=== PATIENT | female | born 1985 | race Caucasian/White ===

== ENCOUNTER 2020-09-26 05:21 | Emergency (ER) | payer OTHER, SELFPAY ==
--- NOTE | ~2020-09-26 | CT_ITS ---
EXAMINATION: CT abdomen pelvis w con CLINICAL INFORMATION: Reason for Exam Abdominal pain COMPARISON: No prior CT available for comparison. TECHNIQUE: Multidetector volumetric imaging was performed from the superior aspect of the liver through the pubic symphysis 85 mL Omnipaque 350 injected Sagittal and coronal reformatted images were obtained on the technologist's workstation. This CT examination was performed using dose optimization techniques as appropriate, variously including the following: *Automated exposure control *Adjustment of mA and/or kV according to patient size (this includes techniques or standardized protocols for targeted exams where dose is matched to indication/reason for exam; i.e. extremities or head) *Use of iterative reconstruction technique DLP: 1273 mGy-cm FINDINGS: LOWER THORAX: Included lung bases are clear. HEPATOBILIARY: Tiny hypodensity in the left lobe of the liver 3 mm too small to characterize, liver otherwise homogeneous normal in size and texture. No suspicious liver lesion. No CT evidence of intra-axial or extrahepatic biliary dilatation. GALLBLADDER: Gallbladder unremarkable. SPLEEN: Spleen is normal in size. PANCREAS: No focal mass or ductal dilatation. STOMACH AND GASTROINTESTINAL TRACT: Stomach is grossly unremarkable. There is no bowel distention or thickening. No CT evidence of appendicitis. ADRENALS: No adrenal nodules. KIDNEYS/URETERS: There is a tiny nonobstructing stone upper calyx right kidney measure about 2 mm image 112 series 6. No hydronephrosis, or solid mass lesions. URINARY BLADDER: Partially decompressed. PELVIC VISCERA: Unremarkable PERITONEUM: No free air or fluid. LYMPH NODES: No lymphadenopathy. VASCULAR:Abdominal aorta normal in size, no aneurysm found. BONES, ABDOMINAL WALL AND SOFT TISSUES: Age-appropriate changes of the spine and skeletal system, no destructive osteolytic or osteosclerotic bone lesion found CT/CT abdomen pelvis w con IMPRESSION: No CT evidence of acute intra-abdominal process to explain patient's pain symptoms. Normal appendix. Tiny 2 mm nonobstructing stone upper pole right kidney.
[2020-09-26 05:31] VITALS: BP 136/82; BP 146/88; PULSE 59; PULSE 65; RESP 16; TEMP 36.9; O2SAT 98; O2SAT 99; BMI 48.2
--- NOTE | 2020-09-26 05:52 | ED.NAVMDI ---
HPI - Nausea/Vomiting/Diarrhea General Chief complaint: Nausea/Vomiting/Diarrhea Stated complaint: nausea and vomiting Time Seen by Provider: 09/26/20 05:27 Source: patient Mode of arrival: ambulatory History of Present Illness HPI Narrative: This is a 35-year-old female who presents with onset of nausea and nonbloody/non bilious vomiting since evening that she denies being associated with contaminated food, fevers, but states there have been chills and this is been associated with left flank and periumbilical discomfort. Otherwise, she denies any urinary pain/burning/frequency, shortness of breath/chest pain and otherwise endorses that she is on the Suboxone program. Related Data Allergies Allergy/AdvReac Type Severity Reaction Status Date / Time No Known Allergies Allergy Verified 09/26/20 05:37 [No Known Allergies*] Review of Systems Review of Systems: Pertinent positives and negatives as stated in HPI 10 point review systems is otherwise negative. PMFSH Past Medical History Source: nursing notes reviewed Social History Social History Advance Directives: No Physical Exam Vital Signs: Vital Signs: Last Vital Signs Temp 98.5 F 09/26/20 05:31 Pulse 59 09/26/20 05:31 Resp 16 09/26/20 05:31 BP 146/88 H 09/26/20 05:31 Pulse Ox 99 09/26/20 05:31 Body Mass Index 48.2 VITAL SIGNS: Reviewed. GENERAL: Well developed, well nourished, in no acute distress. HEAD: Normocephalic/atraumatic, EYES: PERRLA, EOMI intact without pain, no nystagmus/pallor/icterus noted EARS: Ext canals without abnormality, TMs non-bulging and non-erythematous NOSE: Nares patent bilateral OROPHARYNX: no oral lesions noted, posterior pharynx clear NECK: Supple, no adenopathy LUNGS: Normal breath sounds. No adventitious sounds or accessory muscle use. SpO2<99> CARDIOVASCULAR: Regular rate and rhythm without noted murmurs ABDOMEN: Soft, tenderness over epigastrium upper quadrant, non-distended with bowel sounds. NEUROLOGIC: Alert and oriented x 4. Course Course Course Narrative: This is a 35-year-old female with history and clinical presentation suggestive possible renal colic, gastritis, less likely cholecystitis possible pancreatitis. Signed out to Dr Park.
[2020-09-26 06:51] LABS: Basophils Percent Auto 0.3 % (0-2); Eosinophils Percent Auto 0.1 % (0-4); Hematocrit 39.5 % (37-47); Hemoglobin 14.1 g/dl (12.0-16.0); Imm Gran Abs Auto 0.04 X10*3/uL (0.00-0.03); Imm Gran Pct Auto 0.5 % (0.0-0.4); Lymphocytes Absolute Auto 1.5 X10*3/uL (1.2-4.9); Lymphocytes Percent Auto 19.2 % (20-40); Mean Corpuscular HGB Conc 35.7 g/dl (31.0-35.0); Mean Corpuscular Hemoglobin 29.6 pg (27.0-33.0); Mean Platelet Volume 9.8 fL (9.4-12.3); Monocytes Absolute Auto 0.1 X10*3/uL (0.1-1.2); Monocytes Percent Auto 1.3 % (2-11); Neutrophils Absolute Auto 6.3 X10*3/uL (2.0-8.3); Neutrophils Percent Auto 78.6 % (45-73); Platelet Count 282 X10*3/uL (160-400); Red Blood Count 4.76 X10*6/uL (4.20-5.50); Red Cell Distribution Width 11.8 % (11.0-16.0)
[2020-09-26] MEDS: ondansetron HCL 4 MG/2 ML VIAL IVPUSH ×2 (06:52→08:16)
[2020-09-26] MEDS: 0.9 % Sodium Chloride 1,000 ML 999 ML IV (06:53)
[2020-09-26 06:54] LABS: Glucose Urine UA NEG (NEG); Leukocyte Esterase Urine NEG (NEG); Nitrite Urine NEG (NEG); Urine Blood NEG (NEG); Urine Ketones NEG (NEG); Urine Protein NEG (NEG-TRACE)
[2020-09-26] MEDS: Ketorolac Tromethamine 15 MG/ML VIAL IVPUSH (06:54)
[2020-09-26 07:02] LABS: Appearance Urine CLEAR; Color Urine YELLOW; UPreg QC Valid YES
[2020-09-26 07:03] LABS: Urine Pregnancy NEGATIVE (NEGATIVE)
[2020-09-26 07:31] LABS: Amphetamine Screen Urine Not Detected (Not Detect); Barbiturates, Urine POSITIVE (Not Detect); Benzodiazepines Screen Urine Not Detected (Not Detect); Cannabinoid Screen Urine Not Detected (Not Detect); Cocaine Screen Urine Not Detected (Not Detect); Opiate Screen Urine POSITIVE (Not Detect); Phencyclidine Screen Urine Not Detected (Not Detect)
[2020-09-26 08:00] LABS: Alanine Aminotransferase 31 U/L (0-31); Albumin Level 4.3 g/dL (3.5-5.0); Alkaline Phosphatase 72 U/L (39-117); Anion Gap 16 (12-20); Aspartate Amino Transferase 29 U/L (5-31); Bilirubin Total 0.7 mg/dL (0.0-1.0); Blood Urea Nitrogen 17 mg/dL (9-16); Calcium 9.2 mg/dL (8.4-10.2); Carbon Dioxide 23 mmol/L (22-29); Chloride 101 mmol/L (96-108); Creatinine Clr Calc Pharmacy 115.1; Estimated Glomerular Filt Rate > 60; Glucose Random 136 mg/dL (60-115); Potassium 3.7 mmol/L (3.3-5.1); Sodium 136 mmol/L (135-145)
[2020-09-26] MEDS: iohexoL 350 MG/ML 100 ML INFUS..BTL IV (08:18)
[2020-09-26 08:20] VITALS: BP 143/75; PULSE 68; RESP 18; TEMP 36.6; O2SAT 98
[2020-09-26 09:16] LABS: MANUAL DIFF FLAG NO
== END 2020-09-26 10:12 | disposition home or self-care (01) ==
PROVIDERS: Student in an Organized Health Care Education/Training Program; Emergency Provider Emergency Medicine Emergency Medical Services
DX: R11.2 Nausea with vomiting, unspecified (principal); R10.13 Epigastric pain; N20.0 Calculus of kidney; Z79.891 Long term (current) use of opiate analgesic
CPT/HCPCS: 36415; 74177; 80053; 80307; 81003; 81025; 85025; 96361; 96374; 96375; 96376; 99284; J1885; J2405; Q9967

== ENCOUNTER → 2021-01-12 07:27 | Outpatient (BNVA) | payer OTHER, SELFPAY | PROVIDERS: Visit Provider Surgery | DX: E66.01 Morbid (severe) obesity due to excess calories (principal); E78.5 Hyperlipidemia, unspecified; K21.9 Gastro-esophageal reflux disease without esophagitis | CPT/HCPCS: Q3014 ==

== ENCOUNTER → 2021-01-14 12:47 | Outpatient (BNVA) | payer OTHER, SELFPAY | PROVIDERS: Visit Provider Physician Assistant ==

== ENCOUNTER 2021-02-05 09:08 | Outpatient (REF) | payer OTHER, SELFPAY ==
--- NOTE | ~2021-02-05 | XR_ITS ---
EXAMINATION: XR CHEST CLINICAL INFORMATION: Obesity COMPARISON: None TECHNIQUE: 2 views of the chest were obtained. FINDINGS: The cardiac and mediastinal contours are normal. The lungs are clear. There is no pleural effusion or pneumothorax. There are degenerative changes of the spine. XR/XR chest 2V IMPRESSION: No evidence for acute disease in the chest.
--- NOTE | ~2021-02-05 | FL_ITS ---
EXAMINATION: FL UPPER GI SERIES CLINICAL INFORMATION: Bariatric service evaluation. E66.01 COMPARISON: CT abdomen and pelvis 09/26/2020 TECHNIQUE: Upper GI series is performed using fluoroscopic evaluation in addition to multiple fluoroscopic spot views. The patient is imaged both upright and prone and using both thick and thin barium sulfate along with effervescent granules. Fluoroscopy time: 1.5 minutes DAP: 21.46 Gycm2 Fluoroscopic spot images: 19 FINDINGS: There is normal esophageal motility. There is no obstruction, stricture, or ulceration. There is some minor normal physiologic herniation at the esophagogastric junction during prone Valsalva maneuver but no hernia is demonstrated. No gastroesophageal reflux is demonstrated. The stomach shows no thickened folds or ulcer crater or outlet obstruction. The duodenal bulb is pliable and without ulcer crater or scarring. The post bulbar duodenum the jejunal mucosal pattern are unremarkable. FL/FL upper GI series IMPRESSION: Normal study.
--- NOTE | 2021-02-05 09:59 | ECG_ITS ---
Test Reason : E66.01 Blood Pressure : / mmHG Vent. Rate : 071 BPM Atrial Rate : 071 BPM P-R Int : 128 ms QRS Dur : 098 ms QT Int : 426 ms P-R-T Axes : 043 076 077 degrees QTc Int : 462 ms Normal sinus rhythm Nonspecific ST and T wave abnormality When compared to the previous EKG of 08 sep 2016, non specific ST-T changes seen Referred By: Kermit Benson Electronically Signed By:MATT ESTEBAN
== END 2021-02-05 09:09 | disposition home or self-care (01) ==
LOC: HO.XRAY 09:08
PROVIDERS: Visit Provider Surgery
DX: Z01.818 Encounter for other preprocedural examination (principal); E66.01 Morbid (severe) obesity due to excess calories; K21.9 Gastro-esophageal reflux disease without esophagitis; E78.5 Hyperlipidemia, unspecified
CPT/HCPCS: 71046; 74240; 93005

== ENCOUNTER 2021-02-10 14:02 | Outpatient (REF) | payer OTHER, SELFPAY ==
[2021-02-11 14:31] LABS: H Pylori Breath Test NOT DETECTED (NOT DETECTED)
== END 2021-02-10 14:03 | disposition home or self-care (01) ==
LOC: HO.LNP 14:02
PROVIDERS: Surgery; Visit Provider Physician Assistant
DX: E66.01 Morbid (severe) obesity due to excess calories (principal); E78.5 Hyperlipidemia, unspecified; K21.9 Gastro-esophageal reflux disease without esophagitis
CPT/HCPCS: 83013; 99211

== ENCOUNTER → 2021-02-18 08:09 | Outpatient (BNVA) | payer OTHER, SELFPAY | PROVIDERS: Visit Provider Dietitian, Registered | DX: E66.01 Morbid (severe) obesity due to excess calories (principal); Z68.42 Body mass index [BMI] 45.0-49.9, adult | CPT/HCPCS: 97802 ==

== ENCOUNTER → 2021-02-19 07:29 | Outpatient (BNVA) | payer OTHER, SELFPAY | PROVIDERS: Visit Provider Surgery | DX: Z13.89 Encounter for screening for other disorder (principal) | CPT/HCPCS: Q3014 ==

== ENCOUNTER 2021-03-17 11:24 | Outpatient (REF) | payer OTHER, SELFPAY | END 2021-03-17 11:25 | disposition home or self-care (01) | LOC: HO.LAB 11:24 | PROVIDERS: Visit Provider Internal Medicine | DX: Z20.822 Contact with and (suspected) exposure to COVID-19 (principal) | CPT/HCPCS: C9803; U0003; U0005 ==

== ENCOUNTER 2021-05-02 13:38 | Emergency (ER) | payer OTHER, SELFPAY ==
[2021-05-02 14:35] VITALS: BP 121/93; PULSE 89; RESP 18; TEMP 36.6; O2SAT 97; BMI 45.3
[2021-05-02 16:11] LABS: COVID-19 Test Negative (Negative)
--- NOTE | 2021-05-02 16:11 | ED.URI ---
HPI - URI/Sore Throat General Chief Complaint: Upper Respiratory Symptoms Stated Complaint: COUGH BODY ACHES Time Seen by Provider: 05/02/21 16:11 Source: patient Mode of arrival: ambulatory Limitations: no limitations History of Present Illness HPI Narrative: 36 y/o female with history of anxiety, depression, obesity, GERD who is presenting to the ER today complaining of 4 days of nasal congestion & sinus pain. She reports the congestion has now settled into her chest and she has a congested cough. She she is blowing green mucus out of her nose and coughing up from her lungs as of yesterday. is also having headaches and some body aches as well as a mild sore throat. She has some postnasal drip and the cough is worse at night. She is concerned because last night she started to lose her sense of taste and smell. She is not vaccinated against COVID-19. She lives home with her 2 young children and does not want to spread any illnesses to them. She has been afebrile this entire time. She is not having any shortness of breath or chest pain. MD elicited complaint: cough, sore throat, nasal congestion and sinus pain Onset (ago): day(s) (4) Consistency: constant Severity: moderate Description of mucous: green Able to tolerate fluids by mouth: Yes Exacerbating factors: nothing Relieving factors: OTC cold medicine Associated symptoms: headache, nasal congestion, sore throat and cough Treatments prior to arrival: none Related Data Home Medications Medication Instructions Recorded Confirmed doxepin 100 mg capsule 100 mg PO BEDTIME 01/12/21 01/12/21 fluoxetine 20 mg capsule (Prozac) 20 mg PO DAILY 01/12/21 01/12/21 gabapentin 100 mg capsule 100 mg PO TID 01/12/21 01/12/21 omeprazole 40 mg capsule,delayed 40 mg PO DAILY 01/12/21 01/12/21 release trazodone 100 mg tablet 100 mg PO BEDTIME PRN 01/12/21 01/12/21 fluoxetine 60 mg tablet 30 mg PO DAILY 01/14/21 melatonin 10 mg capsule 10 mg PO BEDTIME PRN 01/14/21 omeprazole 20 mg capsule,delayed 20 mg PO DAILY 01/14/21 release Previous Rx's Medication Instructions Recorded ondansetron HCl 4 mg tablet 4 mg PO Q8H PRN #14 tab 09/30/20 (Zofran) amoxicillin 875 mg-potassium 1 tab PO BID #20 tab 05/02/21 clavulanate 125 mg tablet (Augmentin) fluticasone propionate 50 1 spray INTRANASAL BID #16 g 05/02/21 mcg/actuation nasal spray,suspension (Flonase Allergy Relief) hydrocodone-homatropine 5 mg-1.5 5 ml PO Q6H PRN #60 ml 05/02/21 mg/5 mL (5 mL) oral syrup (Hycodan) Allergies Allergy/AdvReac Type Severity Reaction Status Date / Time No Known Allergies Allergy Verified 05/02/21 14:35 [No Known Allergies*] Review of Systems Review of Systems: Constitutional: No Fever, No Chills ENT/Mouth: + sore throat, + Rhinorrhea, No Swallowing Difficulty Eyes: No Eye Pain, No Swelling, No Redness Cardiovascular: No Chest Pain, No SOB Respiratory: + Cough, + Sputum, No Wheezing, No dyspnea Gastrointestinal: No Nausea, No Vomiting, No Diarrhea, No abdominal Pain Musculoskeletal: No joint pain, No Myalgias Skin: No Skin Lesions, No rash Neuro: No Weakness, No Numbness, No Dizziness, + Headache PMFSH Past Medical History Medical History (Updated 05/02/21 @ 17:10 by SANDEE Orta) Anxiety Back pain Back problem Depression GERD (gastroesophageal reflux disease) High cholesterol Hyperlipidemia Knee pain, bilateral Morbid obesity Nausea Family History Family History Mother Lung collapse Father Diabetes Heart attack Depression PTSD (post-traumatic stress disorder) Sister No problems noted. Sister No problems noted. Son No problems noted. Son No problems noted. Social History Social History (Updated 01/12/21 @ 12:52 by Genet Calix) Alcohol intake: never Cigarettes Per Day: 2 Advance Directives: No Advance Directives Information Provided: Yes Physical Exam Vital Signs: Vital Signs: Last Vital Signs Temp 97.9 F 05/02/21 14:35 Pulse 89 05/02/21 14:35 Resp 18 05/02/21 14:35 BP 121/93 H 05/02/21 14:35 Pulse Ox 97 05/02/21 14:35 Body Mass Index 45.3 Appearance: Alert. Oriented X3. No acute distress. Eyes: Pupils equal, round and reactive to light. ENT: Pharynx mild generalized erythema. No tonsillar swelling or exudate. Uvula midline. Bilateral TMs are normal to inspection. Neck: Normal inspection. Neck supple. No lymphadenopathy CVS: Normal heart rate and rhythm. Pulses normal. Respiratory: No respiratory distress. Breath sounds normal. Congested cough Skin: Skin warm and dry. Normal skin color. Normal skin turgor. No rashes. Extremities: No lower extremity edema. Neuro: Oriented X 3. Grossly normal Course Course Course Narrative: 36-year-old female presenting with URI symptoms for the last 4 days. Mucus is now settling into her chest. She has not taken any [id number] cold and flu medications as of yet. She is not vaccinated for COVID and is concerned about this. Her vital signs are normal and she is in no distress. Her clinical presentation and exam are consistent with sinusitis and/or bronchitis. Her COVID test today is negative. Will plan to treat with oral antibiotics intranasal steroids and antitussive. She is stable for discharge from the ER. She is encouraged to get retested for COVID if no improvement with the above treatment. She is also encouraged to get the COVID vaccine once she has fully recovered. Patient agrees with plan and is stable for discharge home MDM - URI/Sore Throat Lab Data Labs: Lab Results 05/02/21 Range/Units 15:46 COVID-19 ([facility]) Negative (Negative) COVID-19 Clin Com See Note Critical Care Time Critical Care Time Critical Care Time: No Discharge Plan Discharge Clinical Impression: Upper respiratory infection Qualifiers: URI type: unspecified URI Qualified Code(s): J06.9 - Acute upper respiratory infection, unspecified Patient Disposition: Home, Self-Care Instructions: Upper Respiratory Infection (ED) Additional Instructions: You tested negative for COVID today Take the prescribed antibiotic as directed. Complete the entire course. Recommend [id number] Mucinex to help break up the mucus in her lungs. Rest and drink plenty of fluids. Take Motrin and/or Tylenol as needed for body aches and headaches. If no improvement with treatment, recommend getting retested for COVID 19. Once you are fully recovered from this illness recommend getting fully vaccinated against COVID-19. Follow-up with your doctor as needed If you develop new or worsening symptoms call 911 or come back to the ER for further evaluation. Prescriptions: New amoxicillin-pot clavulanate [Augmentin] 875-125 mg tablet 1 tab PO BID Qty: 20 RF: 0 fluticasone propionate [Flonase Allergy Relief] 50 mcg/actuation spray,suspension 1 spray intranasal BID Qty: 16 RF: 0 hydrocodone-homatropine [Hycodan] 5-1.5 mg/5 mL (5 mL) syrup 5 ml PO Q6H PRN (Reason: cough) Qty: 60 RF: 0 No Action ondansetron HCl [Zofran] 4 mg tablet 4 mg PO Q8H PRN (Reason: nausea and vomiting) Qty: 14 RF: 0 fluoxetine [Prozac] 20 mg capsule 20 mg PO DAILY RF: 0 trazodone 100 mg tablet 100 mg PO BEDTIME PRNRF: 0 doxepin 100 mg capsule 100 mg PO BEDTIME RF: 0 gabapentin 100 mg capsule 100 mg PO TID RF: 0 omeprazole 40 mg capsule,delayed release(DR/EC) 40 mg PO DAILY RF: 0
== END 2021-05-02 17:29 | disposition home or self-care (01) ==
PROVIDERS: Emergency Provider Internal Medicine
DX: J06.9 Acute upper respiratory infection, unspecified (principal); R50.9 Fever, unspecified; M79.10 Myalgia, unspecified site; R05.9 Cough, unspecified; Z20.822 Contact with and (suspected) exposure to COVID-19; J34.89 Other specified disorders of nose and nasal sinuses; F17.210 Nicotine dependence, cigarettes, uncomplicated; Z71.6 Tobacco abuse counseling
CPT/HCPCS: 36415; 87635; 99283

== ENCOUNTER → 2021-05-17 08:04 | Outpatient (BNVA) | payer OTHER, SELFPAY | PROVIDERS: Visit Provider Surgery ==

== ENCOUNTER 2024-03-13 08:45 | Emergency (ER) | payer OTHER, SELFPAY ==
[2024-03-13 08:52] VITALS: BP 146/90; PULSE 58; O2SAT 99
[2024-03-13 08:58] VITALS: BP 152/87; PULSE 64; RESP 18; TEMP 36.4; O2SAT 98; BMI 51.4
--- NOTE | 2024-03-13 09:19 | ED_ITS ---
HPI - General Adult General Chief complaint: Abdominal Pain Stated complaint: ABD PAIN,CHILLS,WEAK PER EMS Time Seen by Provider: 03/13/24 08:49 Source: patient Mode of arrival: ambulatory Limitations: no limitations History of Present Illness ED Provider: negar ONEILL narrative: Patient is a 39-year-old female with history of MDD, GERD, binge eating disorder, anxiety and depression, morbid obesity, GERD, HLD presenting to the emergency department with complaint of nausea, vomiting and diarrhea since Monday. States she was seen at [facility] emergency department and diagnosed with viral illness. Reports that her symptoms have not improved and she is unable to tolerate any p.o. fluids. She reports that at this time she is primarily dry heaving and is no longer having diarrhea because she is not able to tolerate p.o. fluids. Reports fever on Monday but none since. States abdominal pain is epigastric. Denies any hematemesis, hematochezia, or melena. MD complaint: nausea and vomiting Onset (ago): day(s) Location: abdomen Radiation: non-radiation Associated symptoms: nausea/vomiting Treatments prior to arrival: none Related Data Home Medications ?Medication ?Instructions ?Recorded ?Confirmed doxepin 100 mg capsule 100 mg PO BEDTIME 01/12/21 01/12/21 fluoxetine 20 mg capsule (Prozac) 20 mg PO DAILY 01/12/21 01/12/21 gabapentin 100 mg capsule 100 mg PO TID 01/12/21 01/12/21 omeprazole 40 mg capsule,delayed 40 mg PO DAILY 01/12/21 01/12/21 release trazodone 100 mg tablet 100 mg PO BEDTIME PRN 01/12/21 01/12/21 fluoxetine 60 mg tablet 30 mg PO DAILY 01/14/21 melatonin 10 mg capsule 10 mg PO BEDTIME PRN 01/14/21 omeprazole 20 mg capsule,delayed 20 mg PO DAILY 01/14/21 release Previous Rx's ?Medication ?Instructions ?Recorded ondansetron HCl 4 mg tablet 4 mg PO Q8H PRN nausea and 09/30/20 (Zofran) vomiting #14 tabs amoxicillin 875 mg-potassium 1 tab PO BID #20 tabs 05/02/21 clavulanate 125 mg tablet (Augmentin) fluticasone propionate 50 1 spray intranasal BID #16 grams 10/03/21 mcg/actuation nasal spray,suspension (Flonase Allergy Relief) hydrocodone-homatropine 5 mg-1.5 5 ml PO Q6H PRN cough #60 mL 05/02/21 mg/5 mL (5 mL) oral syrup (Hycodan) aluminum-mag hydroxide-simethicone 10 ml PO QID PRN dyspepsia 3 days 03/13/24 200 mg-200 mg-20 mg/5 mL oral susp #100 mL (Antacid) Allergies Allergy/AdvReac Type Severity Reaction Status Date / Time No Known Allergies Allergy Verified 03/13/24 09:00 [No Known Allergies*] Review of Systems 2 Review of Systems: As per HPI Yes all other systems are reviewed and are negative Constitutional: Constitutional: Reports as per HPI [facility] Past Medical History Medical History (Updated 03/13/24 @ 12:38 by Anna Couch NP) Nausea Back pain Anxiety Hyperlipidemia Depression GERD (gastroesophageal reflux disease) Morbid obesity Knee pain, bilateral Back problem High cholesterol Family History Family History Mother Lung collapse Father Diabetes Heart attack Depression PTSD (post-traumatic stress disorder) Sister No problems noted. Sister No problems noted. Son No problems noted. Son No problems noted. Social History Social History (Updated 01/12/21 @ 12:52 by Genet Calix) Alcohol intake: never Cigarettes Per Day: 2 Smoked in Last 30 Days: No Use of substances other than those prescribed or required for medical reasons: No Advance Directives: No Advance Directives Information Provided: Yes Do you have a plan to hurt others: No Plan Patient : No Physical Exam ED Vital Signs: Vital Signs - 24 hr 03/13/24 08:58 03/13/24 12:00 Temperature 97.6 F Pulse Rate 64 71 Respiratory Rate 18 15 Blood Pressure 152/87 H 131/72 Pulse Oximetry 98 96 Oxygen Delivery Method Room Air Room Air BMI result Body Mass Index 51.4 Vital signs have been reviewed and appear to be correct. Blood pressure elevated. Heart rate normal. Respiratory rate normal. Temperature normal. Oxygen saturation normal. Const General: cooperative and no acute distress Nutritional Appearance: obese morbidly obese Orientation/consciousness: oriented to person, oriented to place, oriented to time and patient oriented x3 Limitations: no limitations HENMT Head: Yes normocephalic and Yes atraumatic Ears: external ears normal General nose exam: Normal external nose present Face and sinus: Yes face symmetric Mouth: oropharynx normal and moist mucous membranes Throat: Yes uvula midline Eyes Pupils: Equal, round and reactive pupils present Neck Neck: Yes normal visual inspection and Yes supple Resp Effort & Inspection: normal respiratory effort and able to speak in complete sentences Auscultation: clear to auscultation bilaterally Cardio Rate: regular rate Rhythm: regular rhythm Heart sounds: S1 normal heart sound present and S2 normal heart sound present GI Palpation (GI): Soft to palpation and nontender Auscultation: normoactive bowel sounds General: Yes no CVA tenderness Back/Spine/Pelvis Back: no CVA tenderness Skin General skin exam: elasticity normal and turgor normal Neuro General: oriented to person, oriented to place, oriented to time, patient oriented x3, moves all extremities, no focal motor deficits and CN's II-XI intact bilaterally Cranial nerves: Yes Equal, round and reactive pupils present Cognition (Neuro): normal cognition Extrem General: Yes full ROM, Yes no pedal edema and Yes no calf tenderness Psych Mental Status: mental status grossly normal Affect: normal affect Thought process: Normal thought process present Medications Administered Discontinued Medications Generic Name Dose Route Start Last Admin Trade Name Freq PRN Reason Stop Dose Admin Al Hydroxide/Mg Hydroxide 30 ml 03/13/24 11:21 03/13/24 11:27 Magnesium Hydrox/Alum Hydrox 30 Ml Oral.Susp PO 03/13/24 11:22 30 ml ONCE ONE Administration Diphenhydramine HCl 25 mg 03/13/24 09:59 03/13/24 10:04 Diphenhydramine Hcl 50 Mg/Ml Vial IVPUSH 03/13/24 10:00 25 mg ONCE ONE Administration Sodium Chloride 1,000 mls @ 999 mls/hr 03/13/24 09:30 03/13/24 09:27 Ns IV 03/13/24 10:30 999 mls/hr .Q1H1M LAKISHA Administration Sodium Chloride 1,000 mls @ 999 mls/hr 03/13/24 10:00 03/13/24 10:09 Ns IV 03/13/24 11:00 999 mls/hr .Q1H1M LAKISHA Administration Lidocaine HCl 10 ml 03/13/24 11:21 08/14/24 11:27 Lidocaine Hcl Viscous 2 % 15 Ml Solution MUCOUS MEM 03/13/24 11:22 10 ml ONCE ONE Administration Metoclopramide HCl 10 mg 03/13/24 09:59 03/13/24 10:05 Metoclopramide Hcl 10 Mg/2 Ml Vial IVPUSH 03/13/24 10:00 10 mg ONCE ONE Administration Ondansetron HCl 4 mg 03/13/24 09:25 03/13/24 09:31 Ondansetron Hcl 4 Mg/2 Ml Vial IVPUSH 03/13/24 09:26 4 mg ONCE ONE Administration Medical Decision Making Medical Decision Making MDM Narrative: Patient is a 39-year-old female with history of MDD, GERD, binge eating disorder, anxiety and depression, morbid obesity, GERD, HLD presenting to the emergency department with complaint of nausea, vomiting and diarrhea since Monday. On exam patient is awake, A+Ox3, BP elevated, VS otherwise WNL, afebrile, normal neurological exam without focal deficits, physical exam findings as above. Given reported symptoms and physical exam findings, initial differential includes gastroenteritis, dehydration, electrolyte abnormality. Unlikely SBO, appendicitis, cholecystitis, pancreatitis. Labs notable for no leukocytosis or left shift, slightly elevated BUN with normal creatinine, elevated LFTs with normal bilirubin, normal amylase/lipase and alk phos, negative HCG. Viral serology negative. Urinalysis notable for 1+ leukocytes, 6-10 wbc's, also 6-10 epithelial cells likely contamination as patient denies urinary symptoms. Symptoms improved with medication in the emergency department. Patient states she was prescribed Zofran at [facility] but has only taken 1 dose so far because she vomited after taking it. Encouraged patient to use this at home, and allow it to dissolve under her tongue, advised that as long as it has dissolved the medication will continue to work. Will also send prescription for Maalox as this improved symptoms in the ED. advised patient to stick to clear liquids for the rest of today and possibly tomorrow until her symptoms improve, then progress with a bland diet back to her regular diet as tolerated. Return precautions discussed. Instructed patient to follow-up with PCP. Patient verbalized understanding of and agreement with plan. Differential Diagnosis Differential Diagnoses: The differential diagnosis associated with the presentation includes As per MDM Admission/Observation Consideration of admission/observation: Escalation of care including admission/observation considered Patient would have been admitted to the hospital had their work up had any findings where hospital admission was appropriate and their clinical presentation warranted hospital admission. Lab Data [facility] Lab Attestation statement: I reviewed the patient's lab results. as per [facility] 03/13/24 09:14 03/13/24 09:24 Labs: Lab Results 03/13/24 03/13/24 03/13/24 Range/Units 09:14 09:21 09:24 WBC 6.7 (4.8-10.8) X10*3/uL RBC 4.74 (4.20-5.50) X10*6/uL Hgb 13.8 (12.0-16.0) g/dl Hct 39.6 (37.0-47.0) % MCV 83.5 (80.0-98.0) fL MCH 29.1 (27.0-33.0) pg MCHC 34.8 (31.0-35.0) g/dl RDW 12.6 (11.0-16.0) % Plt Count 201 (160-400) X10*3/uL MPV 10.0 (9.4-12.3) fL Immature Gran % (Auto) 0.9 H (0.0-0.4) % Neut % (Auto) 65.0 (45-73) % Lymph % (Auto) 28.5 (20-40) % Mathews % (Auto) 5.2 (2-11) % Eos % (Auto) 0.0 (0-4) % Baso % (Auto) 0.4 (0-2) % Lymph # (Auto) 1.9 (1.2-4.9) X10*3/uL Mathews # (Auto) 0.4 (0.1-1.2) X10*3/uL Eos # (Auto) 0.0 (0.0-0.4) X10*3/uL Baso # (Auto) 0.0 (0.0-0.2) X10*3/uL Abs Immat Gran (auto) 0.06 H (0.00-0.03) X10*3/uL Absolute Neuts (auto) 4.4 (2.0-8.3) x10*3/uL Absolute Nucleated RBC 0.000 (0.0-0.012) X10*3/uL Nucleated RBC % (auto) 0.0 (0.0-0.2) /100WBC Sodium Cancelled 141 Potassium Cancelled 3.8 Chloride Cancelled 106 Carbon Dioxide Cancelled 24 Anion Gap Cancelled 15 BUN Cancelled 21 H Creatinine Cancelled 0.89 Estim Creat Clear Calc Cancelled 108.5 Estimated GFR Cancelled > 60 Random Glucose Cancelled 149 H Calcium Cancelled 8.9 Magnesium 2.0 (1.6-2.6) mg/dL Total Bilirubin Cancelled 0.8 AST Cancelled 87 H ALT Cancelled 177 H Alkaline Phosphatase Cancelled 60 Total Protein Cancelled 7.8 Albumin Cancelled 4.1 Amylase 38 (28-100) U/L Lipase 28 (8-78) U/L Beta HCG, Quant < 2 mIU/mL Urine Color Dark Yellow Urine Appearance Cloudy Urine pH 6.0 (5.0-9.0) Ur Specific Scenic 1.025 (1.005-1.025) Urine Protein Trace (Neg-Trace) mg/dL Urine Glucose (UA) Negative (Negative) mg/dL Urine Ketones 40 (Negative) mg/dL Urine Blood Negative (Negative) Urine Nitrite Negative (Negative) Ur Leukocyte Esterase Small (1+) H (Negative) Urine RBC 0-2 (0-2) /HPF Urine WBC 6-10 H (0-5) /HPF Ur Squamous Epith Cells 6-10 (0-2) /HPF Urine Bacteria 1+ (None Seen) Hyaline Casts 0-2 (0-2) /LPF Influenza Type A (PCR) NEGATIVE (Negative) Influenza Type B (PCR) NEGATIVE (Negative) RSV RNA Qual (PCR) NEGATIVE (Negative) SARS-CoV-2 RNA (RT-PCR) NEGATIVE (Negative) External Record Review External record reviewed: Inpatient record, Office record and Outpatient record Prescription Management I considered prescription management with: Other Discharge Plan Discharge Clinical Impression: Gastroenteritis, Gastritis Patient Disposition: Home, Self-Care Instructions: Gastritis (DC), Gastroenteritis (DC), Acute Nausea and Vomiting (ED) Additional Instructions: You were evaluated in the emergency department today for epigastric pain, nausea and vomiting which is most likely due to irritation of the lining of your stomach. Your symptoms improved with medication in the ED. Avoid spicy or acidic foods. Please follow up with your primary care physician within two days. Return to the emergency department if you experience shortness of breath, worsening or uncontrolled abdominal pain, chest pain, light headedness, faiting, persistent nausea and vomiting, bloody vomit or stools, black, tarry stools, or any other concerning symptoms. Prescriptions: New alum-mag hydroxide-simeth [Antacid] 200-200-20 mg/5 mL suspension 10 ml PO QID PRN (Reason: dyspepsia) 3 Days Qty: 100 0RF Rx Instructions: administer between meals and at bedtime No Action ondansetron HCl [Zofran] 4 mg tablet 4 mg PO Q8H PRN (Reason: nausea and vomiting) Qty: 14 0RF amoxicillin-pot clavulanate [Augmentin] 875-125 mg tablet 1 tab PO BID Qty: 20 0RF fluticasone propionate [Flonase Allergy Relief] 50 mcg/actuation spray,suspension 1 spray intranasal BID Qty: 16 0RF Rx Instructions: administer into each nostril hydrocodone-homatropine [Hycodan] 5-1.5 mg/5 mL (5 mL) syrup 5 ml PO Q6H PRN (Reason: cough) Qty: 60 0RF fluoxetine [Prozac] 20 mg capsule 20 mg PO DAILY trazodone 100 mg tablet 100 mg PO BEDTIME PRN doxepin 100 mg capsule 100 mg PO BEDTIME gabapentin 100 mg capsule 100 mg PO TID omeprazole 40 mg capsule,delayed release(DR/EC) 40 mg PO DAILY Print Language: Liberian
[2024-03-13 09:20] LABS: MANUAL DIFF FLAG NO
[2024-03-13 09:25] LABS: Basophils Percent Auto 0.4 % (0-2); Hematocrit 39.6 % (37.0-47.0); Hemoglobin 13.8 g/dl (12.0-16.0); Imm Gran Abs Auto 0.06 X10*3/uL (0.00-0.03); Imm Gran Pct Auto 0.9 % (0.0-0.4); Lymphocytes Absolute Auto 1.9 X10*3/uL (1.2-4.9); Lymphocytes Percent Auto 28.5 % (20-40); Mean Corpuscular HGB Conc 34.8 g/dl (31.0-35.0); Mean Corpuscular Hemoglobin 29.1 pg (27.0-33.0); Mean Corpuscular Volume 83.5 fL (80.0-98.0); Monocytes Absolute Auto 0.4 X10*3/uL (0.1-1.2); Monocytes Percent Auto 5.2 % (2-11); Neutrophils Absolute Auto 4.4 x10*3/uL (2.0-8.3); Platelet Count 201 X10*3/uL (160-400); Red Blood Count 4.74 X10*6/uL (4.20-5.50); Red Cell Distribution Width 12.6 % (11.0-16.0); White Blood Count 6.7 X10*3/uL (4.8-10.8)
[2024-03-13] MEDS: 0.9 % Sodium Chloride 1,000 ML 999 ML IV ×2 (09:27→10:09)
[2024-03-13] MEDS: ondansetron HCL 4 MG/2 ML VIAL IVPUSH (09:31)
[2024-03-13 09:32] LABS: Appearance Urine Cloudy; Color Urine Dark Yellow; Glucose Urine UA Negative (Negative); Leukocyte Esterase Urine Small (1+) (Negative); Nitrite Urine Negative (Negative); Specific Gravity - Urine 1.025 (1.005-1.025); UMIC TRIGGER UACC YES; Urine Blood Negative (Negative); Urine Ketones 40 mg/dL (Negative); Urine Protein Trace mg/dL (Neg-Trace)
--- NOTE | 2024-03-13 09:37 | PC.NURSE ---
patient arrives via EMS with cc of abdominal pain. nausea, vomiting and chills since monday. patient states she went to [facility] ED on monday and was discharged with a stomach virus. advised to come back if not getting any better or if getting worse, patient states she has not been getting better and she has not been able to take prescribed zofran due to vomiting, patient endorsing 10/10 mid abdominal pain, painful to palpation, patient heaving into emesis bag upon arrival however not actively vomiting. patient states she had a fever on monday, 97.6 upon arrival to ED. 20g PIV placed in right forearm. IV fluids running and patient medicated per SEP. VSS at this time, patient ambulated with assistance from this RN to provide urine sample, specimens sent to lab
[2024-03-13 09:47] LABS: Bacteria Urine 1+ (None Seen); Hyaline Casts Urine 0-2 /LPF (0-2); RBC Urine 0-2 /HPF (0-2); UACC Culture Trigger YES
[2024-03-13 09:56] LABS: Alanine Aminotransferase 177 U/L (0-31); Albumin Level 4.1 g/dL (3.5-5.0); Alkaline Phosphatase 60 U/L (39-117); Amylase 38 U/L (28-100); Anion Gap 15 (12-20); Aspartate Amino Transferase 87 U/L (5-31); Bilirubin Total 0.8 mg/dL (0.0-1.0); Blood Urea Nitrogen 21 mg/dL (9-16); Calcium 8.9 mg/dL (8.4-10.2); Carbon Dioxide 24 mmol/L (22-29); Chloride 106 mmol/L (96-108); Creatinine Clr Calc Pharmacy 108.5; Estimated Glomerular Filt Rate > 60; Glucose Random 149 mg/dL (60-115); HCG Quantitative < 2 mIU/mL; Lipase 28 U/L (8-78); Potassium 3.8 mmol/L (3.3-5.1); Sodium 141 mmol/L (135-145); Total Protein 7.8 g/dL (6.5-8.0)
[2024-03-13] MEDS: diphenhydrAMINE HCL 50 MG/ML VIAL 25 MG IVPUSH (10:04)
[2024-03-13] MEDS: Metoclopramide HCl 10 MG/2 ML VIAL IVPUSH (10:05)
[2024-03-13 10:08] LABS: Influenza A PCR NEGATIVE (Negative); Influenza B PCR NEGATIVE (Negative); Resp Syncy Virus RNA Qual PCR NEGATIVE (Negative); SARS COV2 PCR INHOUSE NEGATIVE (Negative)
[2024-03-13] MEDS: Lidocaine HCl Viscous 2 % 15 ML SOLUTION 10 ML MUCOUS MEM (11:27)
[2024-03-13] MEDS: Magnesium Hydrox/Alum Hydrox 30 ML ORAL.SUSP PO (11:27)
[2024-03-13 12:00] VITALS: BP 131/72; PULSE 71; RESP 15; O2SAT 96
[2024-03-13 13:14] VITALS: BP 131/72; PULSE 71; RESP 15; TEMP 36.4; O2SAT 96
== END 2024-03-13 13:19 | disposition home or self-care (01) ==
PROVIDERS: Registered Nurse Emergency; Emergency Provider Emergency Medicine
DX: K52.29 Other allergic and dietetic gastroenteritis and colitis (principal); R10.2 Pelvic and perineal pain; E78.5 Hyperlipidemia, unspecified; R53.1 Weakness; R11.2 Nausea with vomiting, unspecified; Z03.818 Encounter for observation for suspected exposure to other biological agents ruled out; Z79.899 Other long term (current) drug therapy
CPT/HCPCS: 0241U; 36415; 80053; 81001; 82150; 83690; 83735; 84702; 85025; 87086; 96374; 96375; 99284; J1200; J2405; J2765

== ENCOUNTER 2024-07-25 14:51 | Emergency (ER) | payer OTHER, SELFPAY ==
--- NOTE | ~2024-07-25 | XR_ITS ---
EXAMINATION: XR CHEST CLINICAL INFORMATION: cough, fever COMPARISON: None available. TECHNIQUE: 2 views of the chest were obtained. FINDINGS: No significant abnormality is noted involving the heart, lungs, mediastinum, bony thorax or soft tissues. XR/XR chest 2V IMPRESSION: Unremarkable examination. Electronically signed by: Jorge Luis Heck MD 07/25/2024 05:47 PM [facility] [place]
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
[2024-07-25 15:34] VITALS: BP 109/79; PULSE 73; RESP 18; TEMP 36.7; O2SAT 100; BMI 49.6
[2024-07-25 15:56] LABS: IDNOW Serial# 58CA691E; Strep A Nucleic Acid Negative (Negative)
[2024-07-25 16:00] VITALS: BP 130/96; PULSE 84; RESP 20; TEMP 36.8; O2SAT 100
[2024-07-25 16:28] LABS: Influenza A PCR POSITIVE (Negative); Influenza B PCR NEGATIVE (Negative); Resp Syncy Virus RNA Qual PCR NEGATIVE (Negative); SARS COV2 PCR INHOUSE NEGATIVE (Negative)
--- NOTE | 2024-07-25 17:54 | ED_ITS ---
HPI - URI/Sore Throat General Chief Complaint: Upper Respiratory Symptoms Stated Complaint: fever cough chest congrestion Time Seen by Provider: 07/25/24 16:20 Source: patient and RN notes reviewed Mode of arrival: ambulatory Limitations: no limitations History of Present Illness ED Provider: Ashley Solano PA-C HPI Narrative: This is a 39-year-old female who presents emergency department with complaints of sore throat, cough, chest congestion since yesterday. She states that she had 103 fever yesterday. She has been taking ibuprofen and Tylenol for her symptoms. She states that her kids were sick with the flu and strep throat. She denies any shortness of breath. Denies history of asthma. Former smoker. Denies any chest pain, abdominal pain, nausea, vomiting or diarrhea. No other complaints or concerns at this time. MD elicited complaint: fever, cough and sore throat Onset (ago): day(s) Consistency: constant Able to tolerate fluids by mouth: Yes Exacerbating factors: swallowing Relieving factors: NSAID and OTC cold medicine Context: sick contacts Associated symptoms: fever and chills Treatments prior to arrival: none Related Data Home Medications ?Medication ?Instructions ?Recorded ?Confirmed doxepin 100 mg capsule 100 mg PO BEDTIME 01/12/21 01/12/21 fluoxetine 20 mg capsule (Prozac) 20 mg PO DAILY 01/12/21 01/12/21 gabapentin 100 mg capsule 100 mg PO TID 01/12/21 01/12/21 omeprazole 40 mg capsule,delayed 40 mg PO DAILY 01/12/21 01/12/21 release trazodone 100 mg tablet 100 mg PO BEDTIME PRN 01/12/21 01/12/21 fluoxetine 60 mg tablet 30 mg PO DAILY 01/14/21 melatonin 10 mg capsule 10 mg PO BEDTIME PRN 01/14/21 omeprazole 20 mg capsule,delayed 20 mg PO DAILY 01/14/21 release Previous Rx's ?Medication ?Instructions ?Recorded ondansetron HCl 4 mg tablet 4 mg PO Q8H PRN nausea and 09/30/20 (Zofran) vomiting #14 tabs amoxicillin 875 mg-potassium 1 tab PO BID #20 tabs 05/02/21 clavulanate 125 mg tablet (Augmentin) fluticasone propionate 50 1 spray intranasal BID #16 grams 05/02/21 mcg/actuation nasal spray,suspension (Flonase Allergy Relief) hydrocodone-homatropine 5 mg-1.5 5 ml PO Q6H PRN cough #60 mL 05/02/21 mg/5 mL (5 mL) oral syrup (Hycodan) aluminum-mag hydroxide-simethicone 10 ml PO QID PRN dyspepsia 3 days 03/13/24 200 mg-200 mg-20 mg/5 mL oral susp #100 mL (Antacid) acetaminophen 500 mg tablet 500 - 1,000 mg (1 - 2 x 500 mg) PO 07/25/24 (Tylenol Extra Strength) QID PRN pain #30 tabs ibuprofen 600 mg tablet 600 mg PO Q6-8H PRN pain #30 tabs 07/25/24 oseltamivir 75 mg capsule (Tamiflu) 75 mg PO BID 5 days #10 caps 07/25/24 Allergies Allergy/AdvReac Type Severity Reaction Status Date / Time No Known Allergies Allergy Verified 07/25/24 15:39 [No Known Allergies*] Review of Systems Review of Systems: Yes all other systems are reviewed and are negative Constitutional: Constitutional: Reports as per HPI [facility] [place] Past Medical History Medical History (Updated 07/25/24 @ 17:58 by SANDEE Morris) Nausea Back pain Anxiety Hyperlipidemia Depression GERD (gastroesophageal reflux disease) Morbid obesity Knee pain, bilateral Back problem High cholesterol Family History Family History Mother Lung collapse Father Diabetes Heart attack Depression PTSD (post-traumatic stress disorder) Sister No problems noted. Sister No problems noted. Son No problems noted. Son No problems noted. Social History Social History (Updated 01/12/21 @ 12:52 by Genet Calix) Alcohol intake: never Cigarettes Per Day: 2 Advance Directives: No Advance Directives Information Provided: No Physical Exam Vital Signs: Vital Signs: Last Vital Signs Temp 98.2 F 07/25/24 18:24 Pulse 84 07/25/24 18:24 Resp 20 07/25/24 18:24 BP 130/96 H 07/25/24 18:24 Pulse Ox 100 07/25/24 18:24 O2 Del Method Room Air 07/25/24 18:24 BMI result Body Mass Index 49.6 Const: General: cooperative, comfortable and no acute distress Orientation/consciousness: patient oriented x3 Limitations: no limitations HEENT: Other: Oropharynx is mildly erythematous, no tonsillar exudates or edema. Uvula is midline. No trismus, drooling, or dysphonia. Head: Yes normal to inspection, Yes normocephalic and Yes atraumatic Ears: hearing grossly normal bilaterally and TM's normal bilaterally General nose exam: Normal external nose present Face and sinus: Yes normal facial exam Mouth: Normal oral and palatal mucosa present, oropharynx normal and moist mucous membranes Throat: Yes posterior oropharynx normal Eyes: General: appearance normal, both eyes and all related structures Eyelids: Yes eyelids normal Conjunctivae: conjunctivae normal Sclerae: sclerae normal Pupils: Equal, round and reactive pupils present EOM: EOMs intact bilaterally Neck: Neck: Yes normal visual inspection, Yes full ROM and Yes no lymphadenopathy Lymphatic: no lymphadenopathy noted Chest: Chest palpation & inspection: normal inspection of the chest Resp: Effort & Inspection: normal respiratory effort and able to speak in complete sentences Auscultation: clear to auscultation bilaterally, no crackles, no rales, no rhonchi and no wheezes Cardio: Rate: regular rate Rhythm: regular rhythm Heart sounds: S1 normal heart sound present and S2 normal heart sound present GI: Inspection: Yes normal to inspection Skin: General skin exam: no rashes or lesions noted Trauma: no lacerations or abrasions Wounds: no wounds Neuro: General: patient oriented x3 and moves all extremities Cranial nerves: Yes Equal, round and reactive pupils present Extrem: General: Yes normal to inspection Right upper extremity: normal to inspection Left upper extremity: normal to inspection Right lower extremity: normal to inspection Left lower extremity: normal to inspection Medical Decision Making Medical Decision Making [facility] Narrative: This is a 39-year-old female who presents emergency department with complaints of sore throat, cough, chest congestion since yesterday. Patient has had sick contacts with flu exposure. Chest x-ray unremarkable. Patient tested positive for influenza A. Symptoms started yesterday therefore she is eligible for Tamiflu. Patient is started on Tamiflu, given strict return precautions. Patient understands and agrees with plan. Given her vital signs are stable, she is speaking in full sentences under no acute distress, advised to continue with conservative measures for treatment, and take Tamiflu as prescribed. Patient stable for discharge. Differential Diagnosis Differential Diagnoses: The differential diagnosis associated with the presentation includes Influenza, COVID, strep, pneumonia Lab Data MDM Lab Attestation statement: I reviewed the patient's lab results. Positive influenza Labs: Lab Results 07/25/24 Range/Units 15:42 Influenza Type A (PCR) POSITIVE A (Negative) Influenza Type B (PCR) NEGATIVE (Negative) RSV RNA Qual (PCR) NEGATIVE (Negative) SARS-CoV-2 RNA (RT-PCR) NEGATIVE (Negative) S. pyogenes GrpA BRIAN Negative (Negative) Radiology Impression Discussion of test interpretation with radiology: I have reviewed the radiologist's reading. Radiologist Impression: EXAMINATION: XR CHEST CLINICAL INFORMATION: cough, fever COMPARISON: None available. TECHNIQUE: 2 views of the chest were obtained. FINDINGS: No significant abnormality is noted involving the heart, lungs, mediastinum, bony thorax or soft tissues. XR/XR chest 2V IMPRESSION: Unremarkable examination. Electronically signed by: Jorge Luis Heck MD 07/25/2024 05:47 PM [facility] [place] Dictated By: Jorge Luis Heck MD Signed By: <Electronically signed by Jorge Luis Heck MD in OV> Discharge Plan Discharge Clinical Impression: Influenza A Patient Disposition: Home, Self-Care Instructions: Influenza (ED) Additional Instructions: You were seen in the emergency department today and tested positive for flu. Please drink plenty of fluids get plenty of rest. You tested negative for COVID, RSV, and strep. Your chest x-ray was normal. Alternate between ibuprofen and Tylenol as needed for pain and symptoms. Tamiflu is in antiviral that can help decrease the severity of your symptoms as well as decrease the duration of your symptoms. Take as prescribed. If any new or worsening symptoms occur including but not limited to high fevers not responding to Tylenol or Motrin, severe chest pain, shortness of breath, difficulty swallowing, please seek emergent care. Prescriptions: New oseltamivir [Tamiflu] 75 mg capsule 75 mg PO BID 5 Days Qty: 10 0RF acetaminophen [Tylenol Extra Strength] 500 mg tablet 500 - 1,000 mg PO QID PRN (Reason: pain) Qty: 30 0RF ibuprofen 600 mg tablet 600 mg PO Q6-8H PRN (Reason: pain) Qty: 30 0RF No Action ondansetron HCl [Zofran] 4 mg tablet 4 mg PO Q8H PRN (Reason: nausea and vomiting) Qty: 14 0RF amoxicillin-pot clavulanate [Augmentin] 875-125 mg tablet 1 tab PO BID Qty: 20 0RF fluticasone propionate [Flonase Allergy Relief] 50 mcg/actuation spray,suspension 1 spray intranasal BID Qty: 16 0RF Rx Instructions: administer into each nostril hydrocodone-homatropine [Hycodan] 5-1.5 mg/5 mL (5 mL) syrup 5 ml PO Q6H PRN (Reason: cough) Qty: 60 0RF alum-mag hydroxide-simeth [Antacid] 200-200-20 mg/5 mL suspension 10 ml PO QID PRN (Reason: dyspepsia) 3 Days Qty: 100 0RF Rx Instructions: administer between meals and at bedtime fluoxetine [Prozac] 20 mg capsule 20 mg PO DAILY trazodone 100 mg tablet 100 mg PO BEDTIME PRN doxepin 100 mg capsule 100 mg PO BEDTIME gabapentin 100 mg capsule 100 mg PO TID omeprazole 40 mg capsule,delayed release(DR/EC) 40 mg PO DAILY Stand Alone Forms: Work/School Release Interventions: ED Discharge Assessment Last Done: 07/25/24 18:24 Discharge Date/Time: 07/25/24 18:29 Print Language: [place]
[2024-07-25 18:24] VITALS: BP 130/96; PULSE 84; RESP 20; TEMP 36.8; O2SAT 100
== END 2024-07-25 18:29 | disposition home or self-care (01) ==
PROVIDERS: Emergency Provider Emergency Medicine
DX: J10.1 Influenza due to other identified influenza virus with other respiratory manifestations (principal); R05.9 Cough, unspecified; E78.5 Hyperlipidemia, unspecified; E78.00 Pure hypercholesterolemia, unspecified; E66.9 Obesity, unspecified; Z68.42 Body mass index [BMI] 45.0-49.9, adult; Z79.899 Other long term (current) drug therapy; Z03.818 Encounter for observation for suspected exposure to other biological agents ruled out
CPT/HCPCS: 0241U; 71046; 87651; 99283

== ENCOUNTER 2024-09-23 09:51 | Inpatient (IN) | payer OTHER, SELFPAY ==
--- NOTE | 2024-09-23 | ECG_ITS ---
Test Reason : CHEST PAIN Blood Pressure : */* mmHG Vent. Rate : 84 BPM Atrial Rate : 84 BPM P-R Int : 136 ms QRS Dur : 100 ms QT Int : 386 ms P-R-T Axes : 40 56 85 degrees QTcB Int : 456 ms Normal sinus rhythm Nonspecific ST and T wave abnormality Abnormal ECG When compared with ECG of 05-Feb-2021 10:05, T wave inversion more evident in Anterior leads Referred By: Emiliano Strange Electronically Signed By: MATT ESTEBAN
--- NOTE | 2024-09-23 | ECG_ITS ---
Test Reason : chest pain Blood Pressure : */* mmHG Vent. Rate : 107 BPM Atrial Rate : 107 BPM P-R Int : 126 ms QRS Dur : 96 ms QT Int : 350 ms P-R-T Axes : 21 18 243 degrees QTcB Int : 467 ms Sinus tachycardia Nonspecific T wave abnormality Abnormal ECG When compared with ECG of 05-Feb-2021 10:05, Vent. rate has increased by 36 bpm Questionable change in QRS axis Non-specific change in ST segment in Inferior leads Nonspecific T wave abnormality now evident in Inferior leads Nonspecific T wave abnormality, worse in Anterolateral leads Referred By: Mary Ortiz Electronically Signed By: MATT ESTEBAN
--- NOTE | ~2024-09-23 | CT_ITS ---
EXAMINATION: CT CHEST ANGIOGRAPHY WITH IV CONTRAST INDICATION: chest pain, dyspnea, tachycardia COMPARISON: Correlation is made with PA and lateral views of the chest dated 07/25/2024. TECHNIQUE: Helical CT scan of the chest was performed following administration of intravenous contrast (65 mL Omnipaque 350). The contrast bolus was timed to optimally opacify the pulmonary arteries. Thin sections were obtained through the pulmonary arteries. Coronal and sagittal reformatted images were generated. 3D/MIP reconstructed images are also obtained and reviewed. This CT exam was performed with one or more of the following dose reduction techniques: automated exposure control, adjustment of the mA and/or kV according to patient size, use of iterative reconstruction technique. DLP: 509 mGy-cm CHEST: THYROID: The thyroid gland is unremarkable. PULMONARY ARTERIES: No intraluminal filling defects are identified within the pulmonary arteries to suggest pulmonary emboli. LUNGS: There are diffuse confluent groundglass opacities in the central portions of both lungs without a lobar predominance. Findings are consistent with viral or atypical pneumonia. MEDIASTINUM: There is an enlarged 1.6 cm paratracheal lymph node. [place]: There is no hilar lymphadenopathy. CARDIOVASCULATURE: The heart is normal in size. There is no pericardial effusion. The thoracic aorta is normal in caliber. DEGREE OF CORONARY CALCIFICATION: none PLEURA: There is no pleural effusion. No pneumothorax. MAIN AIRWAYS: The mainstem bronchi and proximal branches are patent. AXILLA: There is no axillary lymphadenopathy. UPPER ABDOMEN: The visualized portions of the liver, spleen, and adrenals are unremarkable. BONES AND SOFT TISSUES: Unremarkable. CT/CT angio chest PE protocol IMPRESSION: No evidence of pulmonary emboli. Diffuse confluent groundglass opacities in both lungs compatible with viral or atypical pneumonia. Electronically signed by: Erik Flannery MD 09/23/2024 01:50 PM EST
--- NOTE | 2024-09-23 07:00 | CA_ITS ---
Transthoracic Echocardiogram Patient (Last, First, Middle): Kimberly White, Gender: Female Date of : 1985 Age: 39 Procedure Date: 09/23/2024 Procedure Type: Transthoracic [place]ocardiogram [place] [facility] [place]: 157.48 cm Weight: 129.73 kg BSA: 2.23 m2 Heart Rate: bpm BP: 185 / 104 mmHg Personal Loan Specialist: Referring MD: Julia Aiken MD Symptoms: Chest pain, elevated troponin Study Quality: Fair/Contrast ECG Rhythm: Sinus Conclusions: - The left ventricular systolic function is low normal. The calculated ejection fraction is 52% by biplane method. - No obvious valvular pathology seen on this study. Findings Procedure Information Contrast agent, definity, is being given per protocol without apparent complications. Left Ventricle Normal left ventricular cavity size. There is normal left ventricular wall thickness. The left ventricular systolic function is low normal. The calculated ejection fraction is 52% by biplane method. There is no evidence of regional wall motion abnormalities. Diastolic function is normal for age. Right Ventricle Mildly increased right ventricular cavity size. There is normal right ventricular systolic function. Atria Mild biatrial enlargement. Aortic Valve There is a normal trileaflet aortic valve. There is no aortic valve stenosis. There is no aortic valve regurgitation. Mitral Valve The mitral valve appears normal. There is no mitral valve regurgitation. There is no mitral valve stenosis. Pulmonic Valve The pulmonic valve is likely normal. Tricuspid Valve There is mild tricuspid valve regurgitation. Mild pulmonary hypertension is present. Great Vessels The asc aorta is normal in size. Venous The inferior vena cava is mildly dilated and collapses less than 50% with inspiration. Pericardium/Pleural There is a trivial pericardial effusion. Prior Study Comparison No prior study available for comparison. Recommendations, Care & Conclusions No obvious valvular pathology seen on this study. Measurements 2D Linear Measurements RVIDd: 4.64 RVIDd Index: 2.08 IVSd: 1.02 0.6-0.9/0.6-1.0 cm LVIDd: 4.77 3.9-5.3/4.2-5.9 cm LVIDd Index: 2.14 2.4-3.2/2.2-3.1 cm/m2 LVIDs: 3.34 2.0-3.6 cm LVPWd: 1.00 0.7-1.1 cm Ao Root: 3.60 2.1-3.5 cm LA Diam: 3.80 2.7-3.8/3.0-4.0 cm LAIDs Index: 1.70 1.5-2.3 cm/m2 LV Mass: 212.70 67-162/88-224 g LV Mass Index: 95.38 43-95/49-115 g/m2 LVOT Diam: 2.20 3.0+(-)1.3 cm 2D Systolic Function EF 4C: 59.10 >55% EF 2C: 46.00 >55% EF BiP: 51.70 >55% Mitral Valve MV Pk E: 0.77 MV PK A: 0.72 MV Decel Time: 158.00 E/A: 1.10 E'Lateral: 15.90 E'Medial: 7.94 E/E' Med: 9.70 E/E' Lat: 4.80 PHT: 46.00 MVA PHT: 4.78 Decel [place]: 4.87 Aortic Valve AoV Pk Flavio: 1.45 AoV Pk Grad: 8.00 LVOT LVOT Pk Flavio: 1.16 LVOT Mn Flavio: 0.73 LVOT VTI: 0.20 LVOT Pk Grad: 5.00 LVOT Mn Grad: 3.00 LVOT Diam: 2.20 LVOT Area: 3.80 Diastolic Function MV Pk E: 0.77 MV Pk A: 0.72 E/A: 1.10 E'Medial: 7.94 E/E' Med: 9.70 E' Laterial: 15.90 E/E' Lat: 4.80 Right Ventricle TAPSE (mm): 19.00 TVS' Flavio: 15.00 Tricuspid Valve TR Pk Flavio: 2.73 TR Pk Grad: 30.00 RA Press: 15.00 RVSP: 45.00 Great Vessels Aorta Ao Root-2D: 3.60 2.0-3.7 cm Ao Asc: 3.20 2.1-3.4 cm Pulmonary Valve PV Pk Flavio: 0.81 Peak PV Grad: 3.00 Updated in Other Vendor System with Status of Final Luke Kennedy MD electronically signed on 09/24/2024 9:59:36 AM with status of Final
--- NOTE | 2024-09-23 09:56 | ECG_ITS ---
Test Reason : CP Blood Pressure : */* mmHG Vent. Rate : 87 BPM Atrial Rate : 87 BPM P-R Int : 128 ms QRS Dur : 100 ms QT Int : 362 ms P-R-T Axes : 36 83 117 degrees QTcB Int : 435 ms Normal sinus rhythm Nonspecific ST and T wave abnormality Abnormal ECG When compared with ECG of 23-Sep-2024 18:05, No significant change was found Referred By: Emiliano Strange Electronically Signed By: MATT ESTEBAN
[2024-09-23 10:21] LABS: Hematocrit 35.7 % (37.0-47.0); Hemoglobin 12.1 g/dl (12.0-16.0); Mean Corpuscular HGB Conc 33.9 g/dl (31.0-35.0); Mean Corpuscular Hemoglobin 28.9 pg (27.0-33.0); Mean Corpuscular Volume 85.4 fL (80.0-98.0); Mean Platelet Volume 9.9 fL (9.4-12.3); NRBC Pct Auto 0.5 /100WBC (0.0-0.2); Platelet Count 240 X10*3/uL (160-400); Red Blood Count 4.18 X10*6/uL (4.20-5.50); Red Cell Distribution Width 12.7 % (11.0-16.0); White Blood Count 8.1 X10*3/uL (4.8-10.8)
[2024-09-23 10:52] LABS: Alanine Aminotransferase 18 U/L (0-31); Albumin Level 3.1 g/dL (3.5-5.0); Alkaline Phosphatase 71 U/L (39-117); Anion Gap 12 (12-20); Aspartate Amino Transferase 33 U/L (5-31); Bilirubin Direct 0.3 mg/dL (0.0-0.5); Bilirubin Total 0.7 mg/dL (0.0-1.0); Blood Urea Nitrogen 16 mg/dL (9-16); Calcium 8.8 mg/dL (8.4-10.2); Carbon Dioxide 26 mmol/L (22-29); Chloride 105 mmol/L (96-108); Estimated Glomerular Filt Rate > 60; Glucose Random 201 mg/dL (60-115); Magnesium 1.8 mg/dL (1.6-2.6); Potassium 3.5 mmol/L (3.3-5.1); Sodium 139 mmol/L (135-145); Total Protein 7.2 g/dL (6.5-8.0)
[2024-09-23 10:53] LABS: Band Neutrophils Percent 14 % (3-5); Lymphocytes Absolute Manual 0.9 X10*3/uL (1.2-4.9); Lymphocytes Percent Manual 11 % (20-40); Metamyelocytes Absolute 0.1 X10*3/uL; Metamyelocytes Percent 1 %; Monocytes Absolute Manual 0.4 X10*3/uL (0.1-1.2); Monocytes Percent Manual 5 % (2-11); Neutrophils Absolute Manual 6.7 X10*3/uL (2.0-8.3); Neutrophils Percent Manual 69 % (45-73)
[2024-09-23 10:55] LABS: HCG Quantitative < 2 mIU/mL; RBC Morphology NOTED
[2024-09-23 10:56] LABS: Acanthocytes 1+ (0-2) /OIF; Large Platelet PRESENT; Platelet Estimate NORMAL (NORMAL); Platelet Morphology Comment NOTED; Polychromasia 1+ (0-2) /OIF
[2024-09-23 10:57] LABS: Troponin-I High Sensitivity 99.4 ng/L (<3.5-17.0)
[2024-09-23 11:00] VITALS: BP 185/104; PULSE 118; RESP 20; TEMP 37.3; O2SAT 94; BMI 52.4
--- NOTE | 2024-09-23 11:00 | ED_ITS ---
HPI - Chest Pain General Chief Complaint: Chest Pain Stated Complaint: chest pain flu pain Time Seen by Provider: 09/23/24 11:21 Source: patient Mode of arrival: ambulatory Limitations: no limitations History of Present Illness ED Provider: DR. Aiken HPI narrative: 39-year-old female presented for evaluation of chest pain and shortness of breath go, patient is complaining of upper respiratory symptoms for the past 3 days, generalized body ache, coughing, chest pain from coughing too hard, exertional dyspnea. Patient has no sick contacts, no recent travel, no lower extremities pain or tenderness, no recent travel, no prolonged immobilization, no history of PE or DVT. No history of IV drug use or substance abuse. Related Data Home Medications ?Medication ?Instructions ?Recorded ?Confirmed doxepin 100 mg capsule 100 mg PO BEDTIME 01/12/21 01/12/21 fluoxetine 20 mg capsule (Prozac) 20 mg PO DAILY 01/12/21 01/12/21 gabapentin 100 mg capsule 100 mg PO TID 01/12/21 01/12/21 omeprazole 40 mg capsule,delayed 40 mg PO DAILY 01/12/21 01/12/21 release trazodone 100 mg tablet 100 mg PO BEDTIME PRN 01/12/21 01/12/21 fluoxetine 60 mg tablet 30 mg PO DAILY 01/14/21 melatonin 10 mg capsule 10 mg PO BEDTIME PRN 01/14/21 omeprazole 20 mg capsule,delayed 20 mg PO DAILY 01/14/21 release Previous Rx's ?Medication ?Instructions ?Recorded ondansetron HCl 4 mg tablet 4 mg PO Q8H PRN nausea and 09/30/20 (Zofran) vomiting #14 tabs amoxicillin 875 mg-potassium 1 tab PO BID #20 tabs 05/02/21 clavulanate 125 mg tablet (Augmentin) fluticasone propionate 50 1 spray intranasal BID #16 grams 05/02/21 mcg/actuation nasal spray,suspension (Flonase Allergy Relief) hydrocodone-homatropine 5 mg-1.5 5 ml PO Q6H PRN cough #60 mL 05/02/21 mg/5 mL (5 mL) oral syrup (Hycodan) aluminum-mag hydroxide-simethicone 10 ml PO QID PRN dyspepsia 3 days 03/13/24 200 mg-200 mg-20 mg/5 mL oral susp #100 mL (Antacid) acetaminophen 500 mg tablet 500 - 1,000 mg (1 - 2 x 500 mg) PO 07/25/24 (Tylenol Extra Strength) QID PRN pain #30 tabs ibuprofen 600 mg tablet 600 mg PO Q6-8H PRN pain #30 tabs 07/25/24 oseltamivir 75 mg capsule (Tamiflu) 75 mg PO BID 5 days #10 caps 07/25/24 Allergies Allergy/AdvReac Type Severity Reaction Status Date / Time No Known Allergies Allergy Verified 09/23/24 11:04 [No Known Allergies*] Review of Systems 2 Review of Systems: All other systems are reviewed and are negative Constitutional: Reports as per HPI and Reports no additional constitutional complaints Eyes: Reports as per HPI and Reports no additional eye complaints Reports system reviewed and no additional complaints, except as documented Cardiovascular: Reports as per HPI and Reports no additional cardiovascular complaints Respiratory: Reports as per HPI and Reports no additional respiratory complaints Gastrointestinal: Reports as per HPI and Reports no additional gastrointestinal complaints Genitourinary: Reports no additional female genitourinary complaints Musculoskeletal: Reports no additional musculoskeletal complaints Skin/Breast: Reports system reviewed and no additional complaints, except as docu Psychiatric: Reports no additional psychiatric complaints Endocrine: Reports no additional endocrine complaints Hematologic/Lymphatic: Reports no additional hematologic/lymphatic complaints Allergic/Immunologic: Reports no additional allergic/immunologic complaints Reports system reviewed and no additional complaints, except as documented and Reports Abnormal speech present [facility] Past Medical History Medical History Nausea Back pain Anxiety Hyperlipidemia Depression GERD (gastroesophageal reflux disease) Morbid obesity Knee pain, bilateral Back problem High cholesterol Family History Family History Mother Lung collapse Father Diabetes Heart attack Depression PTSD (post-traumatic stress disorder) Sister No problems noted. Sister No problems noted. Son No problems noted. Son No problems noted. Social History Social History Alcohol intake: never Cigarettes Per Day: 2 Advance Directives: No Advance Directives Information Provided: Yes Physical Exam 2 Vital Signs: Vital Signs: Last Vital Signs Temp 99 F 09/23/24 12:44 Pulse 102 H 09/23/24 12:44 Resp 24 H 09/23/24 12:44 BP 125/78 09/23/24 12:44 Pulse Ox 94 09/23/24 12:44 O2 Del Method Nasal Cannula 09/23/24 12:44 O2 Flow Rate 2 09/23/24 12:44 BMI result Body Mass Index 52.4 Vital signs have been reviewed and appear to be correct. Blood pressure elevated. Heart rate elevated. Respiratory rate normal. Temperature normal. Oxygen saturation normal. Appearance: Alert. Oriented X3. No acute distress. Head: Normal external exam. Normocephalic. Atraumatic. No Langston signs noted. No raccoon eyes noted Eyes: PERRLA. EOMI. Conjunctiva and sclera normal. Eyelids normal. ENT: TM's Normal. Pharynx normal. Uvula midline. Moist mucous membranes. No trismus noted. No drooling noted. No muffled voice noted. Neck: Normal inspection. Neck supple. FROM. No adenopathy. Thyroid Normal. No meningeal signs. No neck mass noted. CVS: Normal heart rate and rhythm. Heart sound normal. No murmurs noted. Pulses normal throughout. Respiratory: No respiratory distress. Painless inspiration. Breath sounds normal. No wheezes/rales/rhonchi noted. Chest nontender. No accessory muscle usage noted or decreased air movement noted. Abdomen: Soft and nontender. Bowel sounds normal in all 4 quadrants. No distention noted. No organomegaly noted. No visible injury noted. Back: No CVA tenderness. Full range of motion noted. Skin: Skin warm and dry. Normal skin color. Normal skin turgor. No rashes/lesions/lacerations noted. Extremities: No lower extremity edema. Extremities exhibit normal range of motion. Extremities nontender. Neuro: Oriented X 3. Cranial nerve exam: II-XII are grossly intact No motor deficit. No sensory deficit. Reflexes normal. Course Course Course Narrative: 39 yo female wtih PMH of depression, anxiety, HLD, GERD here with c/o URI symptoms x 3 days with sore throat, fevers 104, she notes 2 days of chest pain and dyspnea - chest pain hurts to take a deep breath, she can barely walk due to the pain and breathing. Denies prior hx of this in past. At this time EKG, labs, ddimer, viral syndrome, needs bedside ECHO as well. At this time given her nonspecific ST T wave changes - I have put in CTA PE as well. this is a RAPID medical screening exam the rest of the history and physical exam is to be done by the main provider. Reevaluation(s) Reevaluation #1: 39-year-old female came in with 3 days of upper respiratory symptoms with coughing and chest pain with coughing, patient also been having exertional dyspnea, no history of IV drug use. Slightly tachycardic and hypertension otherwise appear stable. Case was discussed with Dr. Kennedy and the plan is check labs, check upper respiratory panels, cardiac echo, repeat serial troponin, NSAIDs after rule out ACS. Time: 11:43 Reevaluation #2: Elevated troponin with out delta change, no ST elevation concerns on the EKG, CTA is revealing no pulmonary embolism possible atypical pneumonia ( infection/sepsis is suspected now) patient will be covered with antibiotic for pneumonia and hypoxia. Transthoracic echocardiogram is still pending. Time: 14:10 Medications Administered Generic Name Dose Route Start Last Admin Trade Name Freq PRN Reason Stop Dose Admin Doxycycline Hyclate 100 mg/ 250 mls @ 166.67 mls/hr 09/23/24 13:57 09/23/24 14:04 Sodium Chloride IV 09/23/24 15:26 166.67 mls/hr ONCE ONE Administration Sodium Chloride 1,000 mls @ 999 mls/hr 09/23/24 13:58 09/23/24 14:04 Ns IV 09/23/24 14:58 999 mls/hr .Q1H1M ONE Administration Discontinued Medications Generic Name Dose Route Start Last Admin Trade Name Freq PRN Reason Stop Dose Admin Aspirin 325 mg 09/23/24 11:46 09/23/24 12:42 Aspirin 325 Mg Tablet PO 09/23/24 11:47 325 mg ONCE ONE Administration Ceftriaxone Sodium 1 gm 09/23/24 13:57 09/23/24 14:04 Ceftriaxone Sodium 1 Gm Vial IVPUSH 09/23/24 13:58 1 gm ONCE ONE Administration Lactated Ringer's 1,000 mls @ 999 mls/hr 09/23/24 11:03 09/23/24 12:41 Lr IV 09/23/24 12:03 Infused .Q1H1M ONE Infusion Acetaminophen 1,000 mg in 100 mls @ 400 mls/hr 09/23/24 11:03 09/23/24 12:25 Ofirmev IV 09/23/24 11:17 Infused ONCE ONE Infusion Sodium Chloride 1,000 mls @ 999 mls/hr 09/23/24 12:42 09/23/24 12:48 Ns IV 09/23/24 13:42 999 mls/hr .Q1H1M ONE Administration Iohexol 100 ml 09/23/24 13:36 09/23/24 13:36 Iohexol 350 Mg/Ml 100 Ml Infus..Btl IV 09/23/24 13:37 65 ml ONCE ONE Administration Ketorolac Tromethamine 15 mg 09/23/24 12:44 09/23/24 14:04 Ketorolac Tromethamine 15 Mg/Ml Vial IVPUSH 09/23/24 12:45 15 mg ONCE ONE Administration Metoprolol Tartrate 5 mg 09/23/24 12:42 09/23/24 12:47 Metoprolol Tartrate 5 Mg/5 Ml Vial IVPUSH 09/23/24 12:43 Not Given ONCE ONE Protocol Medical Decision Making Differential Diagnosis Differential Diagnoses: The differential diagnosis associated with the presentation includes (Pneumonia, pneumothorax, pleural effusion, pulmonary embolism, ACS, myocarditis, pericarditis, upper respiratory viral infection, severe anemia, electrolyte derangement.) Admission/Observation Consideration of admission/observation: Escalation of care including admission/observation considered Lab Data MDM Lab Attestation statement: I reviewed the patient's lab results. 09/23/24 10:14 09/23/24 10:14 Labs: Lab Results 09/23/24 09/23/24 09/23/24 Range/Units 10:14 11:21 11:28 WBC 8.1 (4.8-10.8) X10*3/uL RBC 4.18 L (4.20-5.50) X10*6/uL Hgb 12.1 (12.0-16.0) g/dl Hct 35.7 L (37.0-47.0) % MCV 85.4 (80.0-98.0) fL MCH 28.9 (27.0-33.0) pg MCHC 33.9 (31.0-35.0) g/dl RDW 12.7 (11.0-16.0) % Plt Count 240 (160-400) X10*3/uL MPV 9.9 (9.4-12.3) fL Immature Gran % (Auto) Cancelled Neut % (Auto) Cancelled Lymph % (Auto) Cancelled [place] % (Auto) Cancelled Eos % (Auto) Cancelled Baso % (Auto) Cancelled Lymph # (Auto) Cancelled [place] # (Auto) Cancelled Eos # (Auto) Cancelled Baso # (Auto) Cancelled Abs Immat Gran (auto) Cancelled Absolute Neuts (auto) Cancelled Absolute Nucleated RBC 0.040 H (0.0-0.012) X10*3/uL Nucleated RBC % (auto) 0.5 H (0.0-0.2) /100WBC Neutrophils % (Manual) 69 (45-73) % Band Neutrophils % 14 H (3-5) % Lymphocytes % (Manual) 11 L (20-40) % Monocytes % (Manual) 5 (2-11) % Metamyelocytes % 1 % Abs Neuts (Manual) 6.7 (2.0-8.3) X10*3/uL Lymphocytes # (Manual) 0.9 L (1.2-4.9) X10*3/uL Monocytes # (Manual) 0.4 (0.1-1.2) X10*3/uL Metamyelocytes # 0.1 X10*3/uL Platelet Estimate NORMAL (NORMAL) Large Platelets PRESENT Plt Morphology Comment NOTED RBC Morphology NOTED Polychromasia 1+ (0-2) /OIF Acanthocytes (Spur) 1+ (0-2) /OIF ESR 84 H (0-20) MM/HR PT 14.3 H (10.9-12.4) SEC INR 1.2 H (0.9-1.1) APTT 29.3 (26.0-36.8) SEC D-Dimer High Sensitivty 557 NG/ML Sodium 139 (135-145) mmol/L Potassium 3.5 (3.3-5.1) mmol/L Chloride 105 (96-108) mmol/L Carbon Dioxide 26 (22-29) mmol/L Anion Gap 12 (12-20) BUN 16 (9-16) mg/dL Creatinine 0.76 (0.5-1.4) mg/dL Estim Creat Clear Calc TNP Estimated GFR > 60 Random Glucose 201 H (60-115) mg/dL Lactic Acid 1.9 (0.5-2.0) mmol/L Calcium 8.8 (8.4-10.2) mg/dL Magnesium 1.8 (1.6-2.6) mg/dL Total Bilirubin 0.7 (0.0-1.0) mg/dL Direct Bilirubin 0.3 (0.0-0.5) mg/dL AST 33 H (5-31) U/L ALT 18 (0-31) U/L Alkaline Phosphatase 71 (39-117) U/L Total Creatine Kinase 128 (26-140) U/L Troponin I High Sens 99.4 H* (<3.5-17.0) ng/L C-Reactive Protein 18.77 H (< or = 0.50) mg/dL B-Natriuretic Peptide 323 H (<100) pg/mL Total Protein 7.2 (6.5-8.0) g/dL Albumin 3.1 L (3.5-5.0) g/dL Beta HCG, Quant < 2 mIU/mL Influenza Type A (PCR) NEGATIVE (Negative) Influenza Type B (PCR) NEGATIVE (Negative) RSV RNA Qual (PCR) NEGATIVE (Negative) SARS-CoV-2 RNA (RT-PCR) NEGATIVE (Negative) 09/23/24 Range/Units 12:12 WBC (4.8-10.8) X10*3/uL RBC (4.20-5.50) X10*6/uL Hgb (12.0-16.0) g/dl Hct (37.0-47.0) % MCV (80.0-98.0) fL MCH (27.0-33.0) pg MCHC (31.0-35.0) g/dl RDW (11.0-16.0) % Plt Count (160-400) X10*3/uL MPV (9.4-12.3) fL Immature Gran % (Auto) Neut % (Auto) Lymph % (Auto) [place] % (Auto) Eos % (Auto) Baso % (Auto) Lymph # (Auto) [place] # (Auto) Eos # (Auto) Baso # (Auto) Abs Immat Gran (auto) Absolute Neuts (auto) Absolute Nucleated RBC (0.0-0.012) X10*3/uL Nucleated RBC % (auto) (0.0-0.2) /100WBC Neutrophils % (Manual) (45-73) % Band Neutrophils % (3-5) % Lymphocytes % (Manual) (20-40) % Monocytes % (Manual) (2-11) % Metamyelocytes % % Abs Neuts (Manual) (2.0-8.3) X10*3/uL Lymphocytes # (Manual) (1.2-4.9) X10*3/uL Monocytes # (Manual) (0.1-1.2) X10*3/uL Metamyelocytes # X10*3/uL Platelet Estimate (NORMAL) Large Platelets Plt Morphology Comment RBC Morphology Polychromasia /OIF Acanthocytes (Spur) /OIF ESR (0-20) MM/HR PT (10.9-12.4) SEC INR (0.9-1.1) APTT (26.0-36.8) SEC D-Dimer High Sensitivty NG/ML Sodium (135-145) mmol/L Potassium (3.3-5.1) mmol/L Chloride (96-108) mmol/L Carbon Dioxide (22-29) mmol/L Anion Gap (12-20) BUN (9-16) mg/dL Creatinine (0.5-1.4) mg/dL Estim Creat Clear Calc Estimated GFR Random Glucose (60-115) mg/dL Lactic Acid (0.5-2.0) mmol/L Calcium (8.4-10.2) mg/dL Magnesium (1.6-2.6) mg/dL Total Bilirubin (0.0-1.0) mg/dL Direct Bilirubin (0.0-0.5) mg/dL AST (5-31) U/L ALT (0-31) U/L Alkaline Phosphatase (39-117) U/L Total Creatine Kinase (26-140) U/L Troponin I High Sens 98.9 H* (<3.5-17.0) ng/L C-Reactive Protein (< or = 0.50) mg/dL B-Natriuretic Peptide (<100) pg/mL Total Protein (6.5-8.0) g/dL Albumin (3.5-5.0) g/dL Beta HCG, Quant mIU/mL Influenza Type A (PCR) (Negative) Influenza Type B (PCR) (Negative) RSV RNA Qual (PCR) (Negative) SARS-CoV-2 RNA (RT-PCR) (Negative) Independent Interpretation I performed an independent interpretation of an: EKG and CT Scan (CT angio of the chest:No evidence of pulmonary emboli. Diffuse confluent groundglass opacities in both lungs compatible with viral or atypical pneumonia. ) Interpretation: Rate: 107 Rhythm: sinus tach [facility]: normal Normal P waves. Normal [place]BE[place]. Normal QRS complex. ST T wave : no IVETT, nonspecific ST T wave changes, q wave III qTC: 467 prior studies: no prior The study has been interpreted contemporaneously by me. . Radiology Impression Discussion of test interpretation with radiology: I have reviewed the radiologist's reading. Critical Care Time Critical Care Time Critical Care Time: Yes Total Critical Care Time: 40 Attestation: The patient was critically ill with a high probability of imminent or life- threatening deterioration. I spent greater than 30 minutes of discontinuous time evaluating the patient, delivering critical care at the bedside, discussing evaluating data with consultants. Critical care time does not include time spent performing separately billable procedures or teaching. Time spent performing critical care was 40 minutes. Discharge Plan Discharge Clinical Impression: Atypical chest pain, Elevated troponin, Pneumonia, Hypoxia Patient Disposition: Admitted As Inpatient Print Language: Upper Sorbian
[2024-09-23] MEDS: Lactated Ringers 1,000 ML 999 ML IV (11:38)
[2024-09-23] MEDS: Acetaminophen 1,000 MG/100 ML PIGGYBACK 400 MG IV (11:39)
[2024-09-23 11:46] LABS: INTERNATIONAL NORM RATIO 1.2 (0.9-1.1); Prothrombin Time 14.3 SEC (10.9-12.4)
[2024-09-23 11:49] LABS: Partial Thromboplastin Time 29.3 SEC (26.0-36.8)
[2024-09-23 11:55] LABS: Lactic Acid 1.9 mmol/L (0.5-2.0)
[2024-09-23 12:02] LABS: B Type Natriuretic Peptide 323 pg/mL (<100)
[2024-09-23 12:17] LABS: C Reactive Protein 18.77 mg/dL (< or = 0.50)
[2024-09-23 12:18] LABS: Erythrocyte Sedimentation Rate 84 MM/HR (0-20)
[2024-09-23 12:21] LABS: Influenza A PCR NEGATIVE (Negative); Influenza B PCR NEGATIVE (Negative); Resp Syncy Virus RNA Qual PCR NEGATIVE (Negative); SARS COV2 PCR INHOUSE NEGATIVE (Negative)
[2024-09-23 12:40] VITALS: O2SAT 86
[2024-09-23] MEDS: Aspirin 325 MG TABLET PO (12:42)
[2024-09-23 12:44] VITALS: BP 125/78; PULSE 102; RESP 24; TEMP 37.2; O2SAT 94
[2024-09-23 12:44] LABS: Troponin-I High Sensitivity 98.9 ng/L (<3.5-17.0)
[2024-09-23] MEDS: 0.9 % Sodium Chloride 1,000 ML 999 ML IV ×2 (12:48→14:04)
--- OUTSIDE RECORDS SUMMARY | 2024-09-23 13:02 | XMS_ITS | Clinical Summary ---
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 Active traZODone (DESYREL) 50 mg tablet Take 1 Tablet by mouth at bedtime. 10/11/2023 Active Active Problems Problem Noted Date Diagnosed Date Anxiety disorder 10/11/2023 Depression 10/11/2023 Insomnia 10/11/2023 Surgical History Surgery Date Site/Laterality Comments OTHER SURGICAL HISTORY PROCEDURE: DENIES PREVIOUS SURGERY Medical History Medical History Date Comments Depression DX:Depression Anxiety disorder DX:Anxiety diso rder Insomnia DX:Insomnia H/O back injury DX:H/O back inju ry Family History Medical History Relation Name Comments Diabetes Father Other: heart attacks Father Ovarian cancer Mother Stroke Mother Relation Name Status Comments Father Mother Social History Tobacco Use Types Packs/Day Years Used Date Smoking Tobacco: Never Smokeless Tobacco: Never Alcohol Use Standard Drinks/Week Comments Not Currently 0 (1 standard drink = 0.6 oz pur e alcohol) Comments Unknown Sex and Gender Information Value Date Recorded Sex Assigned at Not on file Legal Sex Female 11:24 PM EST Gender Identity Not on file Sexual Orientation Not on file Obstetrics History Last Filed Vital Signs Vital Sign Reading Time Taken Comments Blood Pressure 132/84 10/11/2023 10:11 AM EDT Pulse 84 10/11/2023 10:11 AM EDT Temperature - - Respiratory Rate - - Oxygen Saturation - - Inhaled Oxygen Concentration - - Weight 128 kg (283 lb) 10/11/2023 10:11 AM EDT Height 157.5 cm (5' 2 ) 10/11/2023 10:11 AM EDT Body Mass Index 51.76 10/11/2023 10:11 AM EDT Plan of Treatment Health Maintenance Due Date Last Done Comments DTaP,Tdap,and Td Vaccines (1 - Tdap) 01/17/2004 Hepatitis B Vaccines (1 of 3 - 19+ 3-dose series) 01/17/2004 Cervical Cancer Screening: P ap Smear 2006 COVID-19 Vaccine ( - 2023-2 5 season) 2024 Influenza Vaccine (#1) 2024 Depression Screening 05/24/2024 HIV Screening 05/24/2024 Hepatitis C Screening 05/24/2024 Social Influencers of Health Screening 05/24/2024 HIB Vaccines Aged Out No longer eligi ble based on patient's age to complete this topic HPV Vaccines Aged Out No longer eligi ble based on patient's age to complete this topic Hepatitis A Vaccines Aged Out No long er eligible based on patient's age to complete this topic IPV Vaccines Aged Out No longer eligi ble based on patient's age to complete this topic MMR Vaccines Aged Out No longer eligi ble based on patient's age to complete this topic Meningococcal ACWY Vaccine Aged Out N o longer eligible based on patient's age to complete this topic Meningococcal B Vacine Aged Out No lo nger eligible based on patient's age to complete this topic Pneumococcal Vaccine: Pediat rics (0 to 5 Years) and At-Risk Patients (6 to 64 Years) Aged Out No longer eligible b ased on patient's age to complete this topic RSV Immunization Patients Un james 20 months Aged Out No longer eligible b ased on patient's age to complete this topic Varicella Vaccines Aged Out No longer eligible based on patient's age to complete this topic Care Teams Hair Cutter Relationship Specialty Start Date End Date Taina Roth MD PCP - General 09/14/23
--- OUTSIDE RECORDS SUMMARY | 2024-09-23 13:03 | XMS_ITS | Clinical Summary ---
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 Role Phone Unavailable Primary Care Provider Unavailabl e Social History Tobacco Use Types Packs/Day Years Used Date Smoking Tobacco: Never Assessed Comments Unknown Sex and Gender Information Value Date Recorded Sex Assigned at Female 05/30/2022 10:31 AM EDT Legal Sex Female 10:31 AM EDT Gender Identity Female 05/30/2022 10:31 AM EDT Sexual Orientation Straight 05/30/2022 10 :31 AM EDT Plan of Treatment Health Maintenance Due Date Last Done Comments Depression Screening 1985 Alcohol/Substance Use Screening 1997 Tobacco Screening 1997 Family Planning (PISQ) 01/17/2000 DTaP/Tdap/Td Vaccines (1 - Tdap) 01/17/2004 Hepatitis B Vaccines (1 of 3 - 19+ 3-dose series) 01/17/2004 Pap Smear 2006 Cervical Cancer Screening 2015 HPV/Cotest 2015 COVID-19 Vaccine ( - 2023-2 5 season) 2024 Influenza Vaccine (#1) 2024 Zoster Vaccines (1 of 2) 2035 RSV Patients and Pa tients Aged 60 years or older (1 - 1-dose 75+ series) 01/17/2060 HIB Vaccines Aged Out No longer eligi [...] patient's age to complete this topic Meningococcal Vaccine Aged Out No bette juan eligible based on patient's age to complete this topic Pneumococcal Vaccine: Pediat rics (0 to 5 Years) and At-Risk Patients (6 to 49) Years) Aged Out No longer eligible b ased on patient's age to complete this topic RSV under 20 months Aged Out No longe r eligible based on patient's age to complete this topic Rotavirus Vaccines Aged Out No longer eligible based on patient's age to complete this topic
--- OUTSIDE RECORDS SUMMARY | 2024-09-23 13:03 | XMS_ITS | Encounter Summary ---
Author Organization [employer] [facility] Address [address] [facility] [address] [place] [address] Care Team Providers Care Medical Underwriter Name Role Phone Unavailable Primary Care Provider Unavailabl e Encounter Details Date Type Department Care Team (Latest Contact Info) Description 03/13/2019 Abstract C CONVERSIONS Dental, Provider, DDS Social History Tobacco Use Types Packs/Day Years Used Date Smoking Tobacco: Never Assessed Comments Unknown Sex and Gender Information Value Date Recorded Sex Assigned at Female 05/30/2022 10:31 AM EDT Legal Sex Female 10:31 AM EDT Gender Identity Female 05/30/2022 10:31 AM EDT Sexual Orientation Straight 05/30/2022 10 :31 AM EDT documented as of this encounter Plan of Treatment Not on file documented as of this encounter Visit Diagnoses Not on filedocumented in this encounter
[2024-09-23 13:09] LABS: D Dimer High Sensitivity 557 NG/ML
[2024-09-23] MEDS: iohexoL 350 MG/ML 100 ML INFUS..BTL IV (13:36)
[2024-09-23] MEDS: Doxycycline Hyclate 100 MG in 0.9 % Sodium Chloride 250 ML 166.67 MG IV (14:04)
[2024-09-23] MEDS: cefTRIAXone sodium 1 GM VIAL IVPUSH (14:04)
[2024-09-23] MEDS: Ketorolac Tromethamine 15 MG/ML VIAL IVPUSH (14:04)
--- NOTE | 2024-09-23 14:33 | PHA.MEDREC ---
Addendum entered by Keely Sales RPh 09/23/24 14:53: Med rec was reviewed by Ana Maria. Original Note: Pharmacy Consult ? Medication Reconciliation Pharmacy has completed the medication reconciliation. Spoke with patient to confirm. She no longer uses pramipexole prn for RLS.
[2024-09-23 15:24] VITALS: BP 133/80; PULSE 88; RESP 19; TEMP 36.4; O2SAT 96
--- NOTE | 2024-09-23 16:28 | PM.IMHP ---
History of Present Illness Date of Service: 09/23/24 Chief Complaint: chest pain, cough 39yo F with no chronic lung disease history presenting with 1 week of worsening cough, myalgias, fever [Tmax 104 at onset 7 days ago, 102 this am prior to taking ibuprofen then coming to the ED], and pleuritic chest pain. She had influenza A back in June but recovered fully; states that this feels much worse. Cough productive of only a small amount of thin clear liquid. Not sure if pain is relieved much by sitting forward. No sick contacts, travel to areas of endemic mycoses, or occupational exposures. In the ED, she was found to be hypoxic with SaO2 of 86% and was placed on 2L O2 with SaO2 now 96%. High-sensitivity troponin 99.4; repeat 2 hours later was 98.9. BNP 323. CRP 18.77, ESR 84. WBC 8.1 but with 14% bands. D-dimer 557. Lactate 1.9. CT angio of the chest showed no PE but diffuse confluent groundglass opacities in both lungs. Influenza, RSV, and Covid-19 PCR negative. She was given ceftriaxone and doxycycline. Review of Systems Review of Systems: Yes all other systems are reviewed and are negative [facility] Medical History Nausea Back pain Anxiety Hyperlipidemia Depression GERD (gastroesophageal reflux disease) Morbid obesity Knee pain, bilateral Back problem High cholesterol Family History Mother Lung collapse Father Diabetes Heart attack Depression PTSD (post-traumatic stress disorder) Sister No problems noted. Sister No problems noted. Son No problems noted. Son No problems noted. Social History Alcohol intake: never Cigarettes Per Day: 2 Advance Directives: No Advance Directives Information Provided: Yes Meds Allergies Allergy/AdvReac Type Severity Reaction Status Date / Time No Known Allergies Allergy Verified 09/23/24 11:04 [No Known Allergies*] Active Medications: Current Medications Acetaminophen (Acetaminophen 325 Mg Tablet) 650 mg PO Q6H PRN PRN Reason: Pain, Mild 1-3,fever,headache Calcium Carbonate (Calcium Carbonate 750 Mg Tab.Chew) 750 mg PO Q4H PRN PRN Reason: Heartburn Ceftriaxone Sodium (Ceftriaxone Sodium 1 Gm Vial) 1 gm IVPUSH Q24H [facility] Clonidine HCl (Clonidine Hcl 0.1 Mg Tablet) 0.1 mg PO TID PRN; Protocol PRN Reason: anxiety Doxycycline Monohydrate (Doxycycline Monohydrate 100 Mg Capsule) 100 mg PO Q12H [facility] Enoxaparin Sodium (Enoxaparin Sodium 40 Mg/0.4 Ml Syringe) 40 mg SUBCUT Q24H [facility] Lactated Ringer's (Lr) 1,000 mls @ 100 mls/hr IVCONT .Q10H [facility] Ibuprofen (Ibuprofen 400 Mg Tablet) 400 mg PO Q6H PRN PRN Reason: Fever Or Pain Magnesium Hydroxide (Milk Of Magnesia 30 Ml Oral.Susp) 30 ml PO DAILY PRN PRN Reason: Constipation Melatonin (Melatonin 3 Mg Tablet) 6 mg PO BEDTIME PRN PRN Reason: Insomnia Ondansetron HCl (Ondansetron Hcl 4 Mg/2 Ml Vial) 4 mg IVPUSH Q8H PRN PRN Reason: Nausea and Vomiting Sodium Chloride (0.9 % Sodium Chloride Flush 3 Ml Syringe) 3 ml IVFLUSH QSHIFT [facility] Home Medications ?Medication ?Instructions ?Recorded ?Confirmed ?Last Taken ?Type clonidine HCl 0.1 mg tablet 0.1 mg PO TID PRN anxiety 09/23/24 09/23/24 Unknown History ibuprofen 200 mg tablet 400 mg PO Q6H PRN Fever Or Pain 09/23/24 09/23/24 09/23/24 History Physical Exam Vital Signs and Narrative: Vital Signs: Last Vital Signs Temp 97.6 F 09/23/24 15:24 Pulse 88 09/23/24 15:24 Resp 19 09/23/24 15:24 BP 133/80 09/23/24 15:24 Pulse Ox 96 09/23/24 15:24 O2 Del Method Nasal Cannula 09/23/24 15:24 O2 Flow Rate 2 09/23/24 15:24 BMI result Body Mass Index 52.4 Gen: in no acute distress HEENT: sclera anicteric, moist mucus membranes Neck: supple Lungs: faint inspiratory crackles bilaterally Heart: regular rate and rhythm, no murmurs Abd: soft, non-tender, non-distended, obese Ext: no edema Skin: warm/well-perfused Neuro: alert and oriented x3, no focal findings Psych: appropriate affect Results Labs 09/23/24 10:14 09/23/24 10:14 Labs: Laboratory Results - last 24 hr 09/23/24 09/23/24 09/23/24 10:14 11:21 11:28 MCV 85.4 MCH 28.9 MCHC 33.9 RDW 12.7 Plt Count 240 MPV 9.9 Immature Gran % (Auto) Cancelled Neut % (Auto) Cancelled Lymph % (Auto) Cancelled [place] % (Auto) Cancelled Eos % (Auto) Cancelled Baso % (Auto) Cancelled Lymph # (Auto) Cancelled [place] # (Auto) Cancelled Eos # (Auto) Cancelled Baso # (Auto) Cancelled Abs Immat Gran (auto) Cancelled Absolute Neuts (auto) Cancelled Absolute Nucleated RBC 0.040 H Nucleated RBC % (auto) 0.5 H Neutrophils % (Manual) 69 Band Neutrophils % 14 H Lymphocytes % (Manual) 11 L Monocytes % (Manual) 5 Metamyelocytes % 1 Abs Neuts (Manual) 6.7 Lymphocytes # (Manual) 0.9 L Monocytes # (Manual) 0.4 Metamyelocytes # 0.1 Platelet Estimate NORMAL Large Platelets PRESENT Plt Morphology Comment NOTED RBC Morphology NOTED Polychromasia 1+ (0-2) Acanthocytes (Spur) 1+ (0-2) ESR 84 H PT 14.3 H INR 1.2 H APTT 29.3 D-Dimer High Sensitivty 557 Anion Gap 12 Estim Creat Clear Calc TNP Estimated GFR > 60 Random Glucose 201 H Lactic Acid 1.9 Calcium 8.8 Magnesium 1.8 Total Bilirubin 0.7 Direct Bilirubin 0.3 AST 33 H ALT 18 Alkaline Phosphatase 71 Total Creatine Kinase 128 C-Reactive Protein 18.77 H B-Natriuretic Peptide 323 H Total Protein 7.2 Albumin 3.1 L Beta HCG, Quant < 2 Influenza Type A (PCR) NEGATIVE Influenza Type B (PCR) NEGATIVE RSV RNA Qual (PCR) NEGATIVE SARS-CoV-2 RNA (RT-PCR) NEGATIVE Imaging Radiologist's Impressions: Impressions Chest CTA 09/23/24 12:53 IMPRESSION: No evidence of pulmonary emboli. Diffuse confluent groundglass opacities in both lungs compatible with viral or atypical pneumonia. Electronically signed by: Erik Flannery MD 09/23/2024 01:50 PM [facility] [place] Assessment and Plan (1) Pneumonia: Status: Acute Plan 39yo F with no chronic lung disease history presenting with 1 week of worsening cough, myalgias, fever and pleuritic chest pain. Found to be septic with hypoxia from atypical pneumonia with bilateral ground-glass opacities and low-grade troponin elevation. sepsis and acute hypoxic respiratory failure due to atypical pneumonia - admit to telemetry, trend procalcitonin, follow blood cultures, continue ceftriaxone + doxycycline, check HIV Ab/Ag and respiratory pathogen panel, check LDH; wean O2 as tolerated troponin elevation - possibly myocarditis or pericarditis; obtain TTE + cardiology consultation hyperglycemia - check A1c morbid obesity - diet/exercise counseling anxiety - continue clonidine VTE prophylaxis - enoxaparin dispo - eventual home code - full I anticipate that the patient will stay at least 2 midnights as an inpatient in the hospital due to the above reasons. It is neither reasonable nor safe to care for them in a less acute setting. Quality Stroke Does the patient have a stroke diagnosis?: No VTE Prior VTE?: No VTE Risk Level:: Medical - moderate - high VTE Device Contraindication: N/A - Device Ordered VTE Drug Contraindication: N/A - Med Ordered
[2024-09-23 17:14] LABS: Lactate Dehydrogenase 440 U/L (122-220)
[2024-09-23] MEDS: Enoxaparin Sodium 40 MG/0.4 ML SYRINGE SUBCUT (18:16)
[2024-09-23] MEDS: Lactated Ringers 1,000 ML 100 ML IVCONT (18:17)
[2024-09-23 18:24] LABS: Procalcitonin 0.22 ng/mL
[2024-09-23] MEDS: Morphine Sulfate 2 MG/ML CARTRIDGE IVPUSH (19:50)
[2024-09-23 21:23] LABS: Amphetamine Screen Urine Not Detected (Not Detect); Barbiturates, Urine Not Detected (Not Detect); Benzodiazepines Screen Urine POSITIVE (Not Detect); Buprenorphine Scr Not Detected (Not Detect); Cannabinoid Screen Urine Not Detected (Not Detect); Cocaine Screen Urine Not Detected (Not Detect); Fentanyl, urine POSITIVE (Not Detect); Methadone Screen, Urine Positive (Not Detect); Opiate Screen Urine Not Detected (Not Detect); Oxycodone Screen Urine Not Detected (Not Detect); Phencyclidine Screen Urine Not Detected (Not Detect)
[2024-09-23 22:19] VITALS: BP 154/103; PULSE 99; RESP 24; TEMP 37.1; O2SAT 98
--- NOTE | 2024-09-23 22:34 | PC.NURSE ---
pt reporting sudden abd and chest pain, MD aware. EKG ordered
[2024-09-23] MEDS: Ibuprofen 400 MG TABLET PO (22:38)
[2024-09-23] MEDS: Doxycycline Monohydrate 100 MG CAPSULE PO (22:38)
[2024-09-23] MEDS: Ketorolac Tromethamine 30 MG/ML VIAL IVPUSH (22:57)
[2024-09-24 01:05] VITALS: BP 143/88; PULSE 84; RESP 20
[2024-09-24 03:38] VITALS: BP 132/86; PULSE 87; RESP 20; TEMP 36.6; O2SAT 98
[2024-09-24 05:09] LABS: Hematocrit 33.2 % (37.0-47.0); Hemoglobin 11.4 g/dl (12.0-16.0); Mean Corpuscular HGB Conc 34.3 g/dl (31.0-35.0); Mean Corpuscular Hemoglobin 29.2 pg (27.0-33.0); Mean Corpuscular Volume 85.1 fL (80.0-98.0); NRBC Pct Auto 0.3 /100WBC (0.0-0.2); Platelet Count 184 X10*3/uL (160-400); Red Cell Distribution Width 12.7 % (11.0-16.0); White Blood Count 7.2 X10*3/uL (4.8-10.8)
[2024-09-24 05:26] LABS: Alanine Aminotransferase 14 U/L (0-31); Albumin Level 2.9 g/dL (3.5-5.0); Alkaline Phosphatase 68 U/L (39-117); Anion Gap 13 (12-20); Aspartate Amino Transferase 33 U/L (5-31); Bilirubin Total 0.8 mg/dL (0.0-1.0); Blood Urea Nitrogen 18 mg/dL (9-16); Calcium 8.4 mg/dL (8.4-10.2); Carbon Dioxide 24 mmol/L (22-29); Chloride 106 mmol/L (96-108); Creatinine Clr Calc Pharmacy 148.2; Estimated Glomerular Filt Rate > 60; Glucose Random 119 mg/dL (60-115); Potassium 3.2 mmol/L (3.3-5.1); Sodium 140 mmol/L (135-145); Total Protein 6.6 g/dL (6.5-8.0)
[2024-09-24 05:31] LABS: B Type Natriuretic Peptide 234 pg/mL (<100)
[2024-09-24 05:37] LABS: Troponin-I High Sensitivity 42.7 ng/L (<3.5-17.0)
[2024-09-24 07:09] LABS: Estimated Average Glucose 114 mg/dL; Hemoglobin A1C 109.9182 umol/L; Hemoglobin A1c % 5.6 % (<6.0); Total Hemoglobin (HGBA1C) 2913.9746 umol/L
[2024-09-24 07:56] VITALS: BP 137/96; PULSE 80; RESP 19; TEMP 36.6; O2SAT 97
[2024-09-24] MEDS: Lactated Ringers 1,000 ML 100 ML IVCONT ×2 (07:56→14:29)
[2024-09-24 08:17] LABS: HIV AB/AG Nonreactive (Nonreactive); HIV Num 1 0.07 S/CO (0.00-0.99)
--- NOTE | 2024-09-24 09:03 | P.CONCA_ITS ---
History of Present Illness History of Present Illness Date of Service: 09/24/24 Chief complaint: atypical pneumonia elevated troponin hypoxia Narrative: This is a cardiology consultation regarding elevated troponins. No previous cardiac issues. Few weeks back, she apparently had influenza and then she recovered completely. After that, she again felt sick in the last few days. She has got numerous constitutional symptoms including fever, myalgias, worsening cough, pleuritic chest pain. With this presentation, she was found to be having slightly elevated troponins and we are asked to see her. Today, she states that she is slightly better. Labs are positive for methadone, fentanyl but she states she does not take any drugs. Hence not clear. Review of Systems 2 Review of Systems: Yes all other systems are reviewed and are negative Constitutional: Constitutional: Reports as per HPI and Reports no additional constitutional complaints Eyes: Eyes: Reports as per HPI and Denies no additional eye complaints ENT: Denies system reviewed and no additional complaints, except as documented and Reports as per HPI Cardiovascular: Cardiovascular: Reports as per HPI, Reports no additional cardiovascular complaints, Denies acrocyanosis, Denies cool extremities, Denies chest pain, Denies leg edema, Denies lightheadedness, Denies palpitations and Denies dyspnea Respiratory: Respiratory: Reports as per HPI, Denies no additional respiratory complaints and Denies dyspnea Gastrointestinal: Gastrointestinal: Reports as per HPI and Denies no additional gastrointestinal complaints Genitourinary: Genitourinary: Reports as per HPI Musculoskeletal: Musculoskeletal: Reports no additional musculoskeletal complaints and Reports as per HPI Integumentary/Breasts: Skin/Breast: Reports system reviewed and no additional complaints, except as docu Neurologic: Reports system reviewed and no additional complaints, except as documented and Reports as per HPI Psychiatric: Psychiatric: Reports no additional psychiatric complaints and Reports as per HPI Endocrine: Endocrine: Reports no additional endocrine complaints, Reports as per HPI and Denies palpitations Hematologic/Lymphatic: Hematologic/Lymphatic: Reports no additional hematologic/lymphatic complaints and Reports as per HPI Allergic/Immunologic: Allergic/Immunologic: Reports no additional allergic/immunologic complaints and Reports as per HPI [facility] Past Medical History Medical History Nausea Back pain Anxiety Hyperlipidemia Depression GERD (gastroesophageal reflux disease) Morbid obesity Knee pain, bilateral Back problem High cholesterol Family History Family History Mother Lung collapse Father Diabetes Heart attack Depression PTSD (post-traumatic stress disorder) Sister No problems noted. Sister No problems noted. Son No problems noted. Son No problems noted. Social History Social History Household Members: Children Housing: Apartment Do you presently have visiting nurse or other home services: No Alcohol intake: never Patient Tobacco Use Status: Never used Tobacco Cigarettes Per Day: 2 Smoked in Last 30 Days: No Use of substances other than those prescribed or required for medical reasons: No Other Past Substance Use Problem:: see tox screen Any prior treatment program specific to substance use: No Have you been hit, kicked, punched, or otherwise hurt by someone within the past year? If so, by whom?: No Do you feel safe in your current relationship?: No Current Relationship Is there a partner from a previous relationship who is making you feel unsafe now?: No Are you made to feel afraid or neglected: No Advance Directives: No Advance Directives Information Provided: Yes Do you have a plan to hurt others: No Plan Recently lost weight without trying: No How much weight loss: Unsure Eating poorly because of decreased appetite: No Nutrition screen score: 2 Nutrition Risks: Poor intake 0-25% >4 days Patient : No : No Meds Allergies Allergy/AdvReac Type Severity Reaction Status Date / Time No Known Allergies Allergy Verified 09/23/24 11:04 [No Known Allergies*] Active Medications: Current Medications Acetaminophen (Acetaminophen 325 Mg Tablet) 650 mg PO Q6H PRN PRN Reason: Pain, Mild 1-3,fever,headache Calcium Carbonate (Calcium Carbonate 750 Mg Tab.Chew) 750 mg PO Q4H PRN PRN Reason: Heartburn Ceftriaxone Sodium (Ceftriaxone Sodium 1 Gm Vial) 1 gm IVPUSH Q24H [facility] Clonidine HCl (Clonidine Hcl 0.1 Mg Tablet) 0.1 mg PO TID PRN; Protocol PRN Reason: anxiety Doxycycline Monohydrate (Doxycycline Monohydrate 100 Mg Capsule) 100 mg PO Q12H [facility] Last Admin: 09/23/24 22:38 Dose: 100 mg Enoxaparin Sodium (Enoxaparin Sodium 40 Mg/0.4 Ml Syringe) 40 mg SUBCUT Q24H [facility] Last Admin: 09/23/24 18:16 Dose: 40 mg Lactated Ringer's (Lr) 1,000 mls @ 100 mls/hr IVCONT .Q10H [facility] Last Admin: 09/24/24 07:56 Dose: 100 mls/hr Ibuprofen (Ibuprofen 400 Mg Tablet) 400 mg PO Q6H PRN PRN Reason: Fever Or Pain Last Admin: 09/23/24 22:38 Dose: 400 mg Magnesium Hydroxide (Milk Of Magnesia 30 Ml Oral.Susp) 30 ml PO DAILY PRN PRN Reason: Constipation Melatonin (Melatonin 3 Mg Tablet) 6 mg PO BEDTIME PRN PRN Reason: Insomnia Morphine Sulfate (Morphine Sulfate 2 Mg/Ml Cartridge) 2 mg IVPUSH Q3H PRN; Protocol PRN Reason: Pain, Severe (Pain Scale 7-10) Last Admin: 09/23/24 19:50 Dose: 2 mg Ondansetron HCl (Ondansetron Hcl 4 Mg/2 Ml Vial) 4 mg IVPUSH Q8H PRN PRN Reason: Nausea and Vomiting Oxycodone HCl (Oxycodone Hcl Immed Release 5 Mg Tablet) 5 mg PO Q6H PRN PRN Reason: Pain, Moderate(Pain Scale 4-6) Sodium Chloride (0.9 % Sodium Chloride Flush 3 Ml Syringe) 3 ml IVFLUSH QSHIFT [facility] Last Admin: 09/24/24 08:10 Dose: Not Given Home Medications ?Medication ?Instructions ?Recorded ?Confirmed ?Last Taken ?Type clonidine HCl 0.1 mg tablet 0.1 mg PO TID PRN anxiety 09/23/24 09/23/24 Unknown History ibuprofen 200 mg tablet 400 mg PO Q6H PRN Fever Or Pain 09/23/24 09/23/24 09/23/24 History Physical Exam 2 Vital Signs: Vital Signs: Last Vital Signs Temp 97.9 F 09/24/24 07:56 Pulse 80 09/24/24 07:56 Resp 19 09/24/24 07:56 BP 137/96 H 09/24/24 07:56 Pulse Ox 97 09/24/24 07:56 O2 Del Method Room Air 09/24/24 07:56 O2 Flow Rate 2 09/24/24 03:38 BMI result Body Mass Index 52.4 Const: General: comfortable and no acute distress O rientation/consciousness: patient oriented x3 HEENT: Other: Unremarkable Head: Yes normal to inspection Neck: Neck: Yes normal visual inspection Chest: Chest palpation & inspection: normal inspection of the chest Resp: Auscultation: clear to auscultation bilaterally Cardio: Palpation: normal PMI Heart sounds: S1 normal heart sound present, S2 normal heart sound present, no gallops, no murmurs and no rubs GI: Palpation (GI): Soft to palpation Back/Spine/Pelvis: Other: unremarkable Skin: General skin exam: no rashes or lesions noted Neuro: General: patient oriented x3 Extrem: General: Yes normal to inspection Psych: Mental Status: mental status grossly normal Objective Labs and Meds 09/24/24 04:12 09/24/24 04:12 Lab results: Laboratory Results - last 24 hr 09/23/24 09/23/24 09/23/24 10:14 11:21 11:28 WBC 8.1 RBC 4.18 L Hgb 12.1 Hct 35.7 L MCV 85.4 MCH 28.9 MCHC 33.9 RDW 12.7 Plt Count 240 MPV 9.9 Immature Gran % (Auto) Cancelled Neut % (Auto) Cancelled Lymph % (Auto) Cancelled [place] % (Auto) Cancelled Eos % (Auto) Cancelled Baso % (Auto) Cancelled Lymph # (Auto) Cancelled [place] # (Auto) Cancelled Eos # (Auto) Cancelled Baso # (Auto) Cancelled Abs Immat Gran (auto) Cancelled Absolute Neuts (auto) Cancelled Absolute Nucleated RBC 0.040 H Nucleated RBC % (auto) 0.5 H Neutrophils % (Manual) 69 Band Neutrophils % 14 H Lymphocytes % (Manual) 11 L Monocytes % (Manual) 5 Metamyelocytes % 1 Abs Neuts (Manual) 6.7 Lymphocytes # (Manual) 0.9 L Monocytes # (Manual) 0.4 Metamyelocytes # 0.1 Platelet Estimate NORMAL Large Platelets PRESENT Plt Morphology Comment NOTED RBC Morphology NOTED Polychromasia 1+ (0-2) Acanthocytes (Spur) 1+ (0-2) ESR 84 H PT 14.3 H INR 1.2 H APTT 29.3 D-Dimer High Sensitivty 557 Sodium 139 Potassium 3.5 Chloride 105 Carbon Dioxide 26 Anion Gap 12 BUN 16 Creatinine 0.76 Estim Creat Clear Calc TNP Estimated GFR > 60 Random Glucose 201 H Estimat Average Glucose Hemoglobin A1c % Lactic Acid 1.9 Calcium 8.8 Magnesium 1.8 Total Bilirubin 0.7 Direct Bilirubin 0.3 AST 33 H ALT 18 Alkaline Phosphatase 71 Lactate Dehydrogenase 440 H Total Creatine Kinase 128 Troponin I High Sens 99.4 H* C-Reactive Protein 18.77 H B-Natriuretic Peptide 323 H Total Protein 7.2 Albumin 3.1 L Procalcitonin 0.22 Beta HCG, Quant < 2 Urine Opiates Screen Ur Buprenorphine Scrn Ur Oxycodone Screen Urine Methadone Screen Urine Fentanyl Screen Ur Barbiturates Screen Ur Phencyclidine Scrn Ur Amphetamines Screen U Benzodiazepines Scrn Urine Cocaine Screen U Marijuana (THC) Screen HIV 1&2 Ab/P24 Ag 4thGn Influenza Type A (PCR) NEGATIVE Influenza Type B (PCR) NEGATIVE RSV RNA Qual (PCR) NEGATIVE SARS-CoV-2 RNA (RT-PCR) NEGATIVE 09/23/24 09/23/24 09/24/24 12:12 21:06 04:12 WBC 7.2 RBC 3.90 L Hgb 11.4 L Hct 33.2 L MCV 85.1 MCH 29.2 MCHC 34.3 RDW 12.7 Plt Count 184 MPV 11.0 Immature Gran % (Auto) Neut % (Auto) Lymph % (Auto) [place] % (Auto) Eos % (Auto) Baso % (Auto) Lymph # (Auto) [place] # (Auto) Eos # (Auto) Baso # (Auto) Abs Immat Gran (auto) Absolute Neuts (auto) Absolute Nucleated RBC 0.020 H Nucleated RBC % (auto) 0.3 H Neutrophils % (Manual) Band Neutrophils % Lymphocytes % (Manual) Monocytes % (Manual) Metamyelocytes % Abs Neuts (Manual) Lymphocytes # (Manual) Monocytes # (Manual) Metamyelocytes # Platelet Estimate Large Platelets Plt Morphology Comment RBC Morphology Polychromasia Acanthocytes (Spur) ESR PT INR APTT D-Dimer High Sensitivty Sodium 140 Potassium 3.2 L Chloride 106 Carbon Dioxide 24 Anion Gap 13 BUN 18 H Creatinine 0.66 Estim Creat Clear Calc 148.2 Estimated GFR > 60 Random Glucose 119 H Estimat Average Glucose 114 Hemoglobin A1c % 5.6 Lactic Acid Calcium 8.4 Magnesium Total Bilirubin 0.8 Direct Bilirubin AST 33 H ALT 14 Alkaline Phosphatase 68 Lactate Dehydrogenase Total Creatine Kinase Troponin I High Sens 98.9 H* 42.7 H D C-Reactive Protein B-Natriuretic Peptide 234 H Total Protein 6.6 Albumin 2.9 L Procalcitonin Beta HCG, Quant Urine Opiates Screen Not Detected Ur Buprenorphine Scrn Not Detected Ur Oxycodone Screen Not Detected Urine Methadone Screen Positive H Urine Fentanyl Screen POSITIVE H Ur Barbiturates Screen Not Detected Ur Phencyclidine Scrn Not Detected Ur Amphetamines Screen Not Detected U Benzodiazepines Scrn POSITIVE H Urine Cocaine Screen Not Detected U Marijuana (THC) Screen Not Detected HIV 1&2 Ab/P24 Ag 4thGn Nonreactive Influenza Type A (PCR) Influenza Type B (PCR) RSV RNA Qual (PCR) SARS-CoV-2 RNA (RT-PCR) ECG Interpretation: EKG shows sinus rhythm at 107/Min; nonspecific ST-T changes. Serial EKGs are similar. Imaging Radiologist's impression: Impressions Chest CTA 09/23/24 12:53 IMPRESSION: No evidence of pulmonary emboli. Diffuse confluent groundglass opacities in both lungs compatible with viral or atypical pneumonia. Electronically signed by: Erik Flannery MD 09/23/2024 01:50 PM [facility] Assessment and Plan (1) Elevated troponin: Status: Acute (2) Myocarditis: Status: Acute Plan High sensitivity troponins-98, 42. Cardiac BNP is 234. High ESR of 84. High CRP. Bands present. Blood cultures pending. Tox screen positive for methadone, fentanyl, benzos. Initial viral panel is negative but more studies are pending. Blood cultures pending. Chest CTA reported have diffuse confluent ground-glass opacities compatible with a viral/atypical pneumonia. From the cardiac standpoint, described to her normal heart size, no pericardial effusion. Suspect elevated troponin most likely mild myocarditis. Await blood cultures. We will review echocardiogram. Further plan pending above. Discussed with Dr. Strange. Procedures Date of Service Date of Service: 09/24/24
--- NOTE | 2024-09-24 09:26 | PC.NURSE ---
Assumed care of pt at 0700. Pt resting in bed quietly, a/ox3, respirations even and unlabored, no increased wob/sob noted, pt remains on 2L NC O2, maintaining O2 sat high 90s. NSR on equipment monitor phototypesetting- HR 80s. Vitals taken and updated, all bed linens changed. Pt updated on plan of care, call vill[facility]ana within reach, all needs met at this time.
[2024-09-24] MEDS: Potassium Chloride ER 20 MEQ TAB.ER.PRT PO (09:33)
[2024-09-24] MEDS: Doxycycline Monohydrate 100 MG CAPSULE PO (09:33)
--- NOTE | 2024-09-24 10:40 | MHC.CM.PN ---
IMM 09/24/24, Pt. lives with her children, She does not have a PCP, brochure given. She does not have home care services or DME. She is able to arrange a ride home at [place]. DCP: home, self care. CM to follow for DC needs.
[2024-09-24 11:39] LABS: Adenovirus PCR Not Detected (Not Detect.); Bordetella parapertussis PCR Not Detected (Not Detect.); Bordetella pertussis PCR Not Detected (Not Detect.); Chlamydia pneumoniae PCR Not Detected (Not Detect.); Coronavirus 229E PCR Not Detected (Not Detect.); Coronavirus HKU1 PCR Not Detected (Not Detect.); Coronavirus NL63 PCR Not Detected (Not Detect.); Coronavirus OC43 PCR Not Detected (Not Detect.); Human metapneumovirus PCR Not Detected (Not Detect.); Influenza A PCR Not Detected (Not Detect.); Influenza B PCR Not Detected (Not Detect.); Mycoplasma pneumoniae PCR Not Detected (Not Detect.); Parainfluenza 1 PCR Not Detected (Not Detect.); Parainfluenza 2 PCR Not Detected (Not Detect.); Parainfluenza 3 PCR Not Detected (Not Detect.); Parainfluenza 4 PCR Not Detected (Not Detect.); RSV PCR Not Detected (Not Detect.); Rhino/Enterovirus PCR Not Detected (Not Detect.)
--- NOTE | 2024-09-24 11:41 | PC.NURSE ---
Pt found to have nasal cannula out of nose, desat to 88% on RA. Pt educated on need to keep nasal cannula in nose. Maintaining O2 sat 96%-98% on 2L NC, denies sob/increased wob.
[2024-09-24 11:52] LABS: SARS-CoV-2 PCR Not Detected (Not Detect.)
[2024-09-24 12:04] VITALS: BP 153/92; PULSE 82; RESP 24; TEMP 37.1; O2SAT 97
[2024-09-24 13:41] VITALS: PULSE 101; PULSE 113; PULSE 88; PULSE 89; O2SAT 85; O2SAT 87; O2SAT 92; O2SAT 94
--- NOTE | 2024-09-24 14:17 | HE.PHANOTE ---
METHADONE Dose: 75mg, last dosed at [facility] on 09/18/24 + 4 take home bottles per Ashley at [facility]. Last dose would be 09/22/24, pt was here 09/23 but did not receive methadone on 09/23/24.
[2024-09-24 14:26] VITALS: BP 148/91; PULSE 86; RESP 15; TEMP 36.6; O2SAT 95
--- NOTE | 2024-09-24 14:47 | P.DS_ITS ---
DS: Providers Provider Date of Service: 09/24/24 Date of admission: 09/23/24 16:25 Date of discharge: 09/24/24 Primary care physician: None Physician Consults: 09/23/24 15:36 Consult to Cardiology Routine Consulting Provider: [facility] Reason for consultation: trop elev DS: Diagnosis Discharge Diagnosis (1) Myocarditis: Status: Acute (2) Atypical pneumonia: Status: Acute (3) Acute respiratory failure with hypoxia: Status: Acute (4) Opioid use disorder: Status: Acute (5) Sepsis: Status: Acute (6) Morbid obesity: Status: Acute DS: Summary Hospital Course Hospital Course: from my admission H+P, 09/23/24: ' 39yo F with no chronic lung disease history presenting with 1 week of worsening cough, myalgias, fever [Tmax 104 at onset 7 days ago, 102 this am prior to taking ibuprofen then coming to the ED], and pleuritic chest pain. She had influenza A back in June but recovered fully; states that this feels much worse. Cough productive of only a small amount of thin clear liquid. Not sure if pain is relieved much by sitting forward. No sick contacts, travel to areas of endemic mycoses, or occupational exposures. In the ED, she was found to be hypoxic with SaO2 of 86% and was placed on 2L O2 with SaO2 now 96%. High-sensitivity troponin 99.4; repeat 2 hours later was 98.9. BNP 323. CRP 18.77, ESR 84. WBC 8.1 but with 14% bands. D-dimer 557. Lactate 1.9. CT angio of the chest showed no PE but diffuse confluent groundglass opacities in both lungs. Influenza, RSV, and Covid-19 PCR negative. She was given ceftriaxone and doxycycline. She was admitted to the hospitalist service on telemetry. Urine toxicology positive for methadone and fentanyl. She later said she was on methadone through [facility]; last fentanyl use was a few weeks ago. She was started on ceftriaxone and doxycycline. HIV Ab/Ag negative. Respiratory pathogen panel negative. Repeat troponin 42.7. Cardiology was consulted. Echocardiogram showed LVEF 52% and only a trivial pericardial effusion. Fever did not recur. Blood cultures negative at 24 hours but she did not stay the full 48 hours, citing the need to take care of her children and the lack of alternative arrangements. The risks of signing out AMA were reviewed with her. Likely she has viral myocarditis but given elevated inflammatory markers, bacterial infection cannot be ruled out yet. She has no primary care either. She was prescribed 6 days of doxycycline and cefuroxime and urged to return to the hospital as soon as feasible. She was also discharged on 3L of oxygen with ambulation as she could not be fully weaned off oxygen. Time Attestation Discharge Coordination Time (in mins): 35 Quality: Safe Use of Opioids Does Pt have an Active Cancer Diagnosis on the Problem List?: No Quality: Stroke Does the patient have a stroke diagnosis?: No Physical Exam Vital Signs: Vital Signs: Last Vital Signs Temp 97.9 F 09/24/24 14: Pulse 86 09/24/24 14:26 Resp 15 09/24/24 14: BP 148/91 H 09/24/24 14:26 Pulse Ox 95 09/24/24 14:26 O2 Del Method Room Air 09/24/24 14:26 O2 Flow Rate 2 09/24/24 07:56 BMI result Body Mass Index 52.4 Gen: in no acute distress HEENT: sclera anicteric, moist mucus membranes Neck: supple Lungs: clear to auscultation bilaterally Heart: regular rate and rhythm, no murmurs Abd: soft, non-tender, non-distended, obese Ext: no edema Skin: warm/well-perfused Neuro: alert and oriented x3, no focal findings Psych: appropriate affect DS: Data Data Completed and Pending Completed studies during hospitalization [Text1]: Laboratory Results WBC 7.2 X10*3/uL (4.8-10.8) 09/24/24 04:12 RBC 3.90 X10*6/uL (4.20-5.50) L 09/24/24 04:12 Hgb 11.4 g/dl (12.0-16.0) L 09/24/24 04:12 Hct 33.2 % (37.0-47.0) L 09/24/24 04:12 MCV 85.1 fL (80.0-98.0) 09/24/24 04:12 MCH 29.2 pg (27.0-33.0) 09/24/24 04:12 MCHC 34.3 g/dl (31.0-35.0) 09/24/24 04:12 RDW 12.7 % (11.0-16.0) 09/24/24 04:12 Plt Count 184 X10*3/uL (160-400) 09/24/24 04:12 MPV 11.0 fL (9.4-12.3) 09/24/24 04:12 Immature Gran % (Auto) Cancelled 09/23/24 10:14 Neut % (Auto) Cancelled 09/23/24 10:14 Lymph % (Auto) Cancelled 09/23/24 10:14 Lucas % (Auto) Cancelled 09/23/24 10:14 Eos % (Auto) Cancelled 09/23/24 10:14 Baso % (Auto) Cancelled 09/23/24 10:14 Lymph # (Auto) Cancelled 09/23/24 10:14 Lucas # (Auto) Cancelled 09/23/24 10:14 Eos # (Auto) Cancelled 09/23/24 10:14 Baso # (Auto) Cancelled 09/23/24 10:14 Abs Immat Gran (auto) Cancelled 09/23/24 10:14 Absolute Neuts (auto) Cancelled 09/23/24 10:14 Absolute Nucleated RBC 0.020 X10*3/uL (0.0-0.012) H 09/24/24 04:12 Nucleated RBC % (auto) 0.3 /100WBC (0.0-0.2) H 09/24/24 04:12 Neutrophils % (Manual) 69 % (45-73) 09/23/24 10:14 Band Neutrophils % 14 % (3-5) H 09/23/24 10:14 Lymphocytes % (Manual) 11 % (20-40) L 09/23/24 10:14 Monocytes % (Manual) 5 % (2-11) 09/23/24 10:14 Metamyelocytes % 1 % 09/23/24 10:14 Abs Neuts (Manual) 6.7 X10*3/uL (2.0-8.3) 09/23/24 10:14 Lymphocytes # (Manual) 0.9 X10*3/uL (1.2-4.9) L 09/23/24 10:14 Monocytes # (Manual) 0.4 X10*3/uL (0.1-1.2) 09/23/24 10:14 Metamyelocytes # 0.1 X10*3/uL 09/23/24 10:14 Platelet Estimate NORMAL (NORMAL) 09/23/24 10:14 Large Platelets PRESENT 09/23/24 10:14 Plt Morphology Comment NOTED 09/23/24 10:14 RBC Morphology NOTED 09/23/24 10:14 Polychromasia 1+ (0-2) /OIF 09/23/24 10:14 Acanthocytes (Spur) 1+ (0-2) /OIF 09/23/24 10:14 ESR 84 MM/HR (0-20) H 09/23/24 10:14 PT 14.3 SEC (10.9-12.4) H 09/23/24 11:28 INR 1.2 (0.9-1.1) H 09/23/24 11:28 APTT 29.3 SEC (26.0-36.8) 09/23/24 11:28 D-Dimer High Sensitivty 557 NG/ML 09/23/24 11:28 Sodium 140 mmol/L (135-145) 09/24/24 04:12 Potassium 3.2 mmol/L (3.3-5.1) L 09/24/24 04:12 Chloride 106 mmol/L (96-108) 09/24/24 04:12 Carbon Dioxide 24 mmol/L (22-29) 09/24/24 04:12 Anion Gap 13 (12-20) 09/24/24 04:12 BUN 18 mg/dL (9-16) H 09/24/24 04:12 Creatinine 0.66 mg/dL (0.5-1.4) 09/24/24 04:12 Estim Creat Clear Calc 148.2 09/24/24 04:12 Estimated GFR > 60 09/24/24 04:12 Random Glucose 119 mg/dL (60-115) H 09/24/24 04:12 Estimat Average Glucose 114 mg/dL 09/24/24 04:12 Hemoglobin A1c % 5.6 % (<6.0) 09/24/24 04:12 Lactic Acid 1.9 mmol/L (0.5-2.0) 09/23/24 11:28 Calcium 8.4 mg/dL (8.4-10.2) 09/24/24 04:12 Magnesium 1.8 mg/dL (1.6-2.6) 09/23/24 10:14 Total Bilirubin 0.8 mg/dL (0.0-1.0) 09/24/24 04:12 Direct Bilirubin 0.3 mg/dL (0.0-0.5) 09/23/24 10:14 AST 33 U/L (5-31) H 09/24/24 04:12 ALT 14 U/L (0-31) 09/24/24 04:12 Alkaline Phosphatase 68 U/L (39-117) 09/24/24 04:12 Lactate Dehydrogenase 440 U/L (122-220) H 09/23/24 10:14 Total Creatine Kinase 128 U/L (26-140) 09/23/24 10:14 Troponin I High Sens 42.7 ng/L (<3.5-17.0) H D 09/24/24 04:12 C-Reactive Protein 18.77 mg/dL (< or = 0.50) H 09/23/24 10:14 B-Natriuretic Peptide 234 pg/mL (<100) H 09/24/24 04:12 Total Protein 6.6 g/dL (6.5-8.0) 09/24/24 04:12 Albumin 2.9 g/dL (3.5-5.0) L 09/24/24 04:12 Procalcitonin 0.22 ng/mL 09/23/24 10:14 Beta HCG, Quant < 2 mIU/mL 09/23/24 10:14 Urine Opiates Screen Not Detected (Not Detect) 09/23/24 21:06 Ur Buprenorphine Scrn Not Detected ng/mL (Not Detect) 09/23/24 21:06 Ur Oxycodone Screen Not Detected ng/mL (Not Detect) 09/23/24 21:06 Urine Methadone Screen Positive ng/mL (Not Detect) H 09/23/24 21:06 Urine Fentanyl Screen POSITIVE (Not Detect) H 09/23/24 21:06 Ur Barbiturates Screen Not Detected (Not Detect) 09/23/24 21:06 Ur Phencyclidine Scrn Not Detected (Not Detect) 09/23/24 21:06 Ur Amphetamines Screen Not Detected (Not Detect) 09/23/24 21:06 U Benzodiazepines Scrn POSITIVE (Not Detect) H 09/23/24 21:06 Urine Cocaine Screen Not Detected (Not Detect) 09/23/24 21:06 U Marijuana (THC) Screen Not Detected (Not Detect) 09/23/24 21:06 Respiratory Panel [place]all[place] See Note 09/23/24 19:05 Adenovirus (Rapid PCR) Not Detected (Not Detect.) 09/23/24 19:05 B.pert (TEM-PCR) Not Detected (Not Detect.) 09/23/24 19:05 B.parapertussis DNA PCR Not Detected (Not Detect.) 09/23/24 19:05 C. pneumoniae DNA (PCR) Not Detected (Not Detect.) 09/23/24 19:05 Coronavirus OC43 (PCR) Not Detected (Not Detect.) 09/23/24 19:05 Coronavirus HKU1 (PCR) Not Detected (Not Detect.) 09/23/24 19:05 Coronavirus 229E (PCR) Not Detected (Not Detect.) 09/23/24 19:05 Coronavirus NL63 (PCR) Not Detected (Not Detect.) 09/23/24 19:05 HIV 1&2 Ab/P24 Ag 4thGn Nonreactive (Nonreactive) 09/24/24 04:12 Human Metapneumovir PCR Not Detected (Not Detect.) 09/23/24 19:05 Influenza A (RT-PCR) Not Detected (Not Detect.) 09/23/24 19:05 Influenza Type A (PCR) NEGATIVE (Negative) 09/23/24 11:21 Influenza B (RT-PCR) Not Detected (Not Detect.) 09/23/24 19:05 Influenza Type B (PCR) NEGATIVE (Negative) 09/23/24 11:21 M. pneumoniae (PCR) Not Detected (Not Detect.) 09/23/24 19:05 Parainfluenza 1 (PCR) Not Detected (Not Detect.) 09/23/24 19:05 Parainfluenza 2 (PCR) Not Detected (Not Detect.) 09/23/24 19:05 Parainfluenza 3 (PCR) Not Detected (Not Detect.) 09/23/24 19:05 Parainfluenza 4 (PCR) Not Detected (Not Detect.) 09/23/24 19:05 RSV (PCR) Not Detected (Not Detect.) 09/23/24 19:05 RSV RNA Qual (PCR) NEGATIVE (Negative) 09/23/24 11:21 Entero/Rhino (PCR) Not Detected (Not Detect.) 09/23/24 19:05 SARS-CoV-2 RNA (RT-PCR) Not Detected (Not Detect.) 09/23/24 19:05 Impressions Chest CTA 09/23/24 12:53 IMPRESSION: No evidence of pulmonary emboli. Diffuse confluent groundglass opacities in both lungs compatible with viral or atypical pneumonia. Electronically signed by: Erik Flannery MD 09/23/2024 01:[address] [facility] Discharge Plan Discharge Patient Disposition: Left Against Medical Advice Discharge Diagnosis: hypoxia atypical pneumonia myocarditis Referrals: Physician,Kevin [Primary Care Provider] - 1 Week Luke Kennedy MD [Physician] - 2 Weeks Discharge Medications: New doxycycline monohydrate 100 mg Capsule 100 mg PO Q12H Qty: 12 0RF cefuroxime axetil 500 mg tablet 500 mg PO BID Qty: 12 0RF Continued clonidine HCl 0.1 mg tablet 0.1 mg PO TID PRN (Reason: anxiety) ibuprofen 200 mg Tablet 400 mg PO Q6H PRN (Reason: Fever Or Pain) methadone 10 mg/mL Concentrate 75 mg PO DAILY Discharge Orders: Discharge Order (Routine); Ordered 09/24/24 Ordered By: Emiliano Strange Print Language: Turkmen Care Plan Goals: diagnosis and management of hypoxia, atypical pneumonia, and myocarditis Health Concerns: hypoxia atypical pneumonia myocarditis Plan of Treatment: return to the hospital as soon as possible to resume care 3L of oxygen with ambulation doxycycline 100 mg twice daily plus cefuroxime 500 mg twice daily for 6 days if blood culture positive you will be called to return to the hospital follow up with Cardiology in 1-2 weeks establish primary care DAMIAN Assessment: See Discharge Summary.
[2024-09-24] MEDS: cefTRIAXone sodium 1 GM VIAL IVPUSH (14:51)
[2024-09-24] MEDS: methADONE HCl 20 MG/2 ML ORAL.CONC 75 MG PO (14:51)
--- NOTE | 2024-09-24 15:40 | PC.NURSE ---
Pt leaving AMA per MD Alexandr. Unable to print AMA d/c paper, MD and charge nurse aware of situation. Double RN signed d/c paperwork, provider okay with that.
[2024-09-26 19:49] LABS: Strep Pneumo Ag urine Not Detected (Not Detected)
[2024-09-27 12:38] LABS: Anti Nuclear Antibody Screen NEGATIVE (NEGATIVE)
[2024-10-02 05:12] LABS: Legionella Ag Urine Not Detected (Not Detected)
== END 2024-09-24 15:38 | disposition left against medical advice (07) | DRG 871 ==
LOC: HO.ED 14:06 → HO.EDOVER 16:36 → HO.IMC 09-24 13:28 → HO.EDOVER 09-24 13:42 → HO.IMC 09-24 13:57 → HO.EDOVER 09-24 14:47
PROVIDERS: Emergency Medicine; Admitting Provider Family Medicine; Emergency Provider Emergency Medicine; Visit Provider Family Medicine
DX: A41.9 Sepsis, unspecified organism (principal); I40.0 Infective myocarditis; J96.01 Acute respiratory failure with hypoxia; J12.9 Viral pneumonia, unspecified; F11.20 Opioid dependence, uncomplicated; Z68.43 Body mass index [BMI] 50.0-59.9, adult; R73.9 Hyperglycemia, unspecified; B97.89 Other viral agents as the cause of diseases classified elsewhere; F41.9 Anxiety disorder, unspecified; E66.01 Morbid (severe) obesity due to excess calories; Z71.3 Dietary counseling and surveillance; Z20.822 Contact with and (suspected) exposure to COVID-19; Z79.899 Other long term (current) drug therapy
CPT/HCPCS: 0241U; 36415; 71275; 80048; 80053; 80076; 80307; 82550; 83036; 83605; 83615; 83735; 83880; 84145; 84484; 84702; 85007; 85027; 85379; 85610; 85652; 85730; 86038; 86140; 87040; 87389; 87449; 87633; 87899; 93005; 93306; 99285; J0131; J0696; J1650; J1885; J2270; J7120; Q9957; Q9967

== ENCOUNTER → 2024-09-23 11:03 | Outpatient (BNV) | payer OTHER, SELFPAY | PROVIDERS: Emergency Provider Emergency Medicine; Visit Provider Radiology Diagnostic Radiology | DX: J18.9 Pneumonia, unspecified organism (principal) | CPT/HCPCS: 71275 ==

== ENCOUNTER → 2024-09-23 16:25 | Outpatient (BNV) | payer OTHER, SELFPAY | PROVIDERS: Admitting Provider Family Medicine; Emergency Provider Emergency Medicine; Visit Provider Family Medicine | DX: J18.9 Pneumonia, unspecified organism (principal) | CPT/HCPCS: 99223; 99239 ==

== ENCOUNTER → 2024-09-23 16:25 | Outpatient (BNV) | payer OTHER, SELFPAY | PROVIDERS: Admitting Provider Family Medicine; Emergency Provider Emergency Medicine; Visit Provider Internal Medicine | DX: I27.20 Pulmonary hypertension, unspecified (principal); I36.1 Nonrheumatic tricuspid (valve) insufficiency; R79.89 Other specified abnormal findings of blood chemistry; I51.4 Myocarditis, unspecified | CPT/HCPCS: 93010; 93306; 99223 ==

== ENCOUNTER 2025-01-11 15:24 | Emergency (ER) | payer OTHER, SELFPAY ==
--- NOTE | ~2025-01-11 | CT_ITS ---
CLINICAL HISTORY: blurred vision this am CT head without contrast Comparison: None Findings: No intra-axial mass, midline shift, hydrocephalus, or acute hemorrhage. No significant atrophy-like change or white matter disease. The visualized paranasal sinuses and mastoid air cells are normal. The orbits are within normal limits. No skull fracture. IMPRESSION: 1. No acute intracranial findings. This document has been electronically signed by: Tiara Corrales MD on 01/11/2025 17:52:24
[2025-01-11 15:26] VITALS: BP 140/102; PULSE 57; RESP 20; TEMP 36.2; O2SAT 96; BMI 51.6
--- NOTE | 2025-01-11 15:28 | ED_ITS ---
HPI - General Adult General Chief complaint: Neck Pain/Injury Stated complaint: pain from neck up & shoulders double vision Time Seen by Provider: 01/11/25 16:45 Source: patient Mode of arrival: ambulatory Limitations: no limitations History of Present Illness ED Provider: HPI narrative: Patient is a 39-year-old female with history of OUD, myocarditis, binge eating disorder, MDD, MELVI, HLD, depression/anxiety, GERD, obesity presenting with complaint of throbbing pain from left side of neck under left ear which radiates under chin to right side of neck. One week ago patient woke up with pain, no fever no chills pain is on both sides of the neck reproducible Related Data Home Medications ?Medication ?Instructions ?Recorded ?Confirmed clonidine HCl 0.1 mg tablet 0.1 mg PO TID PRN anxiety 09/23/24 09/23/24 ibuprofen 200 mg tablet 400 mg PO Q6H PRN Fever Or Pain 09/23/24 09/23/24 methadone 10 mg/mL oral concentrate 75 mg PO DAILY 09/24/24 09/24/24 Previous Rx's ?Medication ?Instructions ?Recorded cefuroxime axetil 500 mg tablet 500 mg PO BID #12 tabs 09/24/24 doxycycline monohydrate 100 mg 100 mg PO Q12H #12 caps 09/24/24 capsule cyclobenzaprine 10 mg tablet 10 mg PO Q8H #20 tabs 01/11/25 meloxicam 15 mg tablet 15 mg PO DAILY #20 tabs 01/11/25 Allergies Allergy/AdvReac Type Severity Reaction Status Date / Time No Known Allergies Allergy Verified 01/11/25 15:28 [No Known Allergies*] Review of Systems 2 Review of Systems: Yes all other systems are reviewed and are negative [facility]LY [facility] Past Medical History Medical History Nausea Back pain Anxiety Hyperlipidemia Depression GERD (gastroesophageal reflux disease) Morbid obesity Knee pain, bilateral Back problem High cholesterol Family History Family History Mother Lung collapse Father Diabetes Heart attack Depression PTSD (post-traumatic stress disorder) Sister No problems noted. Sister No problems noted. Son No problems noted. Son No problems noted. Social History Social History Household Members: Children Housing: Apartment Do you presently have visiting nurse or other home services: No Alcohol intake: never Patient Tobacco Use Status: Never used Tobacco Cigarettes Per Day: 2 Smoked in Last 30 Days: No Use of substances other than those prescribed or required for medical reasons: No Advance Directives: No Advance Directives Information Provided: No Patient : No service: No Physical Exam ED Vital Signs: Vital Signs - 24 hr 01/11/25 15:26 01/11/25 17:46 01/11/25 18:44 Temperature 97.2 F 99.0 F 99.0 F Pulse Rate 57 59 59 Respiratory Rate 20 18 18 Blood Pressure 140/102 H 129/74 129/74 Pulse Oximetry 96 98 98 Oxygen Delivery Method Room Air Room Air Room Air BMI result Body Mass Index 51.6 Appearance: Alert. Oriented X3. No acute distress. Eyes: No pallor or icterus ENT: Pharynx normal. Oral Mucosa moist Neck: Normal inspection. Neck supple. No midline tenderness diffuse tenderness bilaterally SCM muscles CVS: Normal heart rate and rhythm. Pulses normal. Respiratory: No respiratory distress. Equal air entry bilateral, no wheezing/rales/rhonchi Abdomen: Soft and nontender. Bowel sounds are present, no mass palpable, no CVA tenderness Skin: Skin warm and dry. Normal skin color. Normal skin turgor. Extremities: No lower extremity edema. No calf tenderness Neuro: Oriented X 3. No motor deficit. No sensory deficit.No cerebellar signs , cranial nerves II-XII intact Course Course Course Narrative: This is a rapid medical exam performed by Tato Couch NP: Additional HPI, ROS, PE not included below will be deferred to primary provider. Patient is a 39-year-old female with history of OUD, myocarditis, binge eating disorder, MDD, MELVI, HLD, depression/anxiety, GERD, obesity presenting with complaint of throbbing pain from left side of neck under left ear which radiates under chin to right side of neck. Reports double/blurred vision this morning. Plan: EKG, labs, CT head Medications Administered Discontinued Medications Generic Name Dose Route Start Last Admin Trade Name Freq PRN Reason Stop Dose Admin Cyclobenzaprine HCl 10 mg 01/11/25 17:01 01/11/25 17:04 Cyclobenzaprine Hcl 10 Mg Tablet PO 01/11/25 17:02 10 mg ONCE ONE Administration Ketorolac Tromethamine 60 mg 01/11/25 17:58 01/11/25 18:08 Ketorolac Tromethamine 60 Mg/2 Ml Vial IM 01/11/25 17:59 60 mg ONCE ONE Administration Tramadol HCl 50 mg 01/11/25 16:58 01/11/25 17:04 Tramadol Hcl 50 Mg Tablet PO 01/11/25 16:59 50 mg ONCE ONE Administration Medical Decision Making Differential Diagnosis Differential Diagnoses: The differential diagnosis associated with the presentation includes Muscular strain/inflammatory reaction Lab Data 01/11/25 16:36 01/11/25 15:45 Labs: Lab Results 01/11/25 01/11/25 Range/Units 15:45 16:36 WBC 6.7 (4.8-10.8) X10*3/uL RBC 5.38 D (4.20-5.50) X10*6/uL Hgb 15.3 D (12.0-16.0) g/dl Hct 42.1 D (37.0-47.0) % MCV 78.3 L (80.0-98.0) fL MCH 28.4 (27.0-33.0) pg MCHC 36.3 H (31.0-35.0) g/dl RDW 13.2 (11.0-16.0) % Plt Count 207 (160-400) X10*3/uL MPV 9.6 (9.4-12.3) fL Immature Gran % (Auto) 0.2 (0.0-0.4) % Neut % (Auto) 57.7 (45-73) % Lymph % (Auto) 34.9 (20-40) % [place] % (Auto) 6.6 (2-11) % Eos % (Auto) 0.0 (0-4) % Baso % (Auto) 0.6 (0-2) % Lymph # (Auto) 2.3 (1.2-4.9) X10*3/uL [place] # (Auto) 0.4 (0.1-1.2) X10*3/uL Eos # (Auto) 0.0 (0.0-0.4) X10*3/uL Baso # (Auto) 0.0 (0.0-0.2) X10*3/uL Abs Immat Gran (auto) 0.01 (0.00-0.03) X10*3/uL Absolute Neuts (auto) 3.8 (2.0-8.3) x10*3/uL Absolute Nucleated RBC 0.000 (0.0-0.012) X10*3/uL Nucleated RBC % (auto) 0.0 (0.0-0.2) /100WBC PT 11.8 (10.9-12.4) SEC INR 1.0 (0.9-1.1) Sodium 134 L (135-145) mmol/L Potassium 4.8 D (3.3-5.1) mmol/L Chloride 100 (96-108) mmol/L Carbon Dioxide 24 (22-29) mmol/L Anion Gap 15 (12-20) BUN 9 (9-16) mg/dL Creatinine 0.85 (0.5-1.4) mg/dL Estim Creat Clear Calc 114.0 Estimated GFR > 60 Random Glucose 259 H (60-115) mg/dL Calcium 9.4 D (8.4-10.2) mg/dL Total Bilirubin 0.8 (0.0-1.0) mg/dL AST 235 H (5-31) U/L ALT 389 H (0-31) U/L Alkaline Phosphatase 101 (39-117) U/L Total Creatine Kinase 48 (26-140) U/L Troponin I High Sens 3.6 D (<3.5-17.0) ng/L C-Reactive Protein 0.42 (< or = 0.50) mg/dL Total Protein 7.8 (6.5-8.0) g/dL Albumin 4.0 (3.5-5.0) g/dL Beta HCG, Quant < 2 mIU/mL Independent Interpretation I performed an independent interpretation of an: EKG Interpretation: Sinus bradycardia with ventricular rate of 45 beats per minute LVH no acute ST-T no acute ischemia Discharge Plan Discharge Clinical Impression: Strain of neck muscle, Elevated liver enzymes Patient Disposition: Home, Self-Care Instructions: Cervical Strain (DC) Additional Instructions: Take pain medication and muscle relaxant as prescribed Follow up with automation software engineer for further management hepatitis-C causing the elevated liver enzymes Prescriptions: New meloxicam 15 mg tablet 15 mg PO DAILY Qty: 20 0RF cyclobenzaprine 10 mg tablet 10 mg PO Q8H Qty: 20 0RF No Action clonidine HCl 0.1 mg tablet 0.1 mg PO TID PRN (Reason: anxiety) ibuprofen 200 mg Tablet 400 mg PO Q6H PRN (Reason: Fever Or Pain) methadone 10 mg/mL Concentrate 75 mg PO DAILY doxycycline monohydrate 100 mg Capsule 100 mg PO Q12H Qty: 12 0RF cefuroxime axetil 500 mg tablet 500 mg PO BID Qty: 12 0RF Interventions: ED Discharge Assessment Last Done: 01/11/25 18:44 Discharge Date/Time: 01/11/25 18:45 Print Language: Slovak
--- NOTE | 2025-01-11 15:31 | ECG_ITS ---
Test Reason : severe neck pain Blood Pressure : */* mmHG Vent. Rate : 45 BPM Atrial Rate : 45 BPM P-R Int : 132 ms QRS Dur : 94 ms QT Int : 482 ms P-R-T Axes : 35 38 26 degrees QTcB Int : 416 ms Sinus bradycardia with sinus arrhythmia Minimal voltage criteria for LVH, may be normal variant ( Elliot product ) Borderline ECG When compared with ECG of 23-Sep-2024 22:36, Vent. rate has decreased by 42 bpm Non-specific change in ST segment in Lateral leads Nonspecific T wave abnormality, improved in Inferior leads T wave inversion no longer evident in Anterolateral leads Referred By: Anna Couch Electronically Signed By: RAGHU STERN MD
[2025-01-11 16:20] LABS: Troponin-I High Sensitivity 3.6 ng/L (<3.5-17.0)
[2025-01-11 16:24] LABS: HCG Quantitative < 2 mIU/mL
[2025-01-11 16:46] LABS: Basophils Percent Auto 0.6 % (0-2); Hematocrit 42.1 % (37.0-47.0); Hemoglobin 15.3 g/dl (12.0-16.0); Imm Gran Abs Auto 0.01 X10*3/uL (0.00-0.03); Imm Gran Pct Auto 0.2 % (0.0-0.4); Lymphocytes Absolute Auto 2.3 X10*3/uL (1.2-4.9); Lymphocytes Percent Auto 34.9 % (20-40); Mean Corpuscular HGB Conc 36.3 g/dl (31.0-35.0); Mean Corpuscular Hemoglobin 28.4 pg (27.0-33.0); Mean Corpuscular Volume 78.3 fL (80.0-98.0); Mean Platelet Volume 9.6 fL (9.4-12.3); Monocytes Absolute Auto 0.4 X10*3/uL (0.1-1.2); Monocytes Percent Auto 6.6 % (2-11); Neutrophils Absolute Auto 3.8 x10*3/uL (2.0-8.3); Neutrophils Percent Auto 57.7 % (45-73); Platelet Count 207 X10*3/uL (160-400); Red Blood Count 5.38 X10*6/uL (4.20-5.50); Red Cell Distribution Width 13.2 % (11.0-16.0); White Blood Count 6.7 X10*3/uL (4.8-10.8)
[2025-01-11 16:55] LABS: Prothrombin Time 11.8 SEC (10.9-12.4)
[2025-01-11 17:03] LABS: Alanine Aminotransferase 389 U/L (0-31); Alkaline Phosphatase 101 U/L (39-117); Anion Gap 15 (12-20); Aspartate Amino Transferase 235 U/L (5-31); Bilirubin Total 0.8 mg/dL (0.0-1.0); Blood Urea Nitrogen 9 mg/dL (9-16); Calcium 9.4 mg/dL (8.4-10.2); Carbon Dioxide 24 mmol/L (22-29); Chloride 100 mmol/L (96-108); Estimated Glomerular Filt Rate > 60; Glucose Random 259 mg/dL (60-115); Potassium 4.8 mmol/L (3.3-5.1); Sodium 134 mmol/L (135-145); Total Protein 7.8 g/dL (6.5-8.0)
[2025-01-11] MEDS: Cyclobenzaprine HCl 10 MG TABLET PO (17:04)
[2025-01-11] MEDS: traMADoL HCL 50 MG TABLET PO (17:04)
[2025-01-11 17:46] VITALS: BP 129/74; PULSE 59; RESP 18; TEMP 37.2; O2SAT 98
[2025-01-11] MEDS: Ketorolac Tromethamine 60 MG/2 ML VIAL IM (18:08)
[2025-01-11 18:19] LABS: C Reactive Protein 0.42 mg/dL (< or = 0.50)
[2025-01-11 18:44] VITALS: BP 129/74; PULSE 59; RESP 18; TEMP 37.2; O2SAT 98
== END 2025-01-11 18:45 | disposition home or self-care (01) ==
PROVIDERS: Registered Nurse Emergency; Emergency Provider Internal Medicine
DX: S16.1XXA Strain of muscle, fascia and tendon at neck level, initial encounter (principal); X50.1XXA Overexertion from prolonged static or awkward postures, initial encounter; R74.8 Abnormal levels of other serum enzymes; H53.8 Other visual disturbances; E78.5 Hyperlipidemia, unspecified; I51.4 Myocarditis, unspecified; F11.20 Opioid dependence, uncomplicated; Y93.84 Activity, sleeping; Y92.032 Bedroom in apartment as the place of occurrence of the external cause; Y99.9 Unspecified external cause status; Z79.899 Other long term (current) drug therapy
CPT/HCPCS: 36415; 70450; 80053; 82550; 84484; 84702; 85025; 85610; 86140; 93005; 96372; 99284; 99285; J1885

== ENCOUNTER → 2025-01-11 15:31 | Outpatient (BNV) | payer OTHER, SELFPAY | PROVIDERS: Emergency Provider Internal Medicine; Visit Provider Radiology Diagnostic Radiology | DX: H53.8 Other visual disturbances (principal) | CPT/HCPCS: 70450 ==

== ENCOUNTER → 2025-01-11 15:31 | Outpatient (BNV) | payer OTHER, SELFPAY | PROVIDERS: Emergency Provider Internal Medicine; Visit Provider Internal Medicine Cardiovascular Disease | DX: I49.9 Cardiac arrhythmia, unspecified (principal); R00.1 Bradycardia, unspecified | CPT/HCPCS: 93010 ==

== ENCOUNTER 2025-01-27 05:01 | Inpatient (IN) | payer OTHER, SELFPAY ==
[2025-01-27] VITALS (17 sets, daily range): BP systolic 113–159; BP diastolic 54–85; PULSE 111–164; RESP 18–28; TEMP 36.6–38.8; O2SAT 97–100; BMI 43.0; BMI 45.6
--- NOTE | ~2025-01-27 | CT_ITS ---
EXAMINATION: CT ABDOMEN AND PELVIS WITH CONTRAST CLINICAL INFORMATION: Abdominal pain. Vomiting. COMPARISON: September 26, 2020. TECHNIQUE: Multidetector volumetric images were obtained from the superior aspect of the liver through the pubic symphysis following administration 100 mL of Omnipaque 350 intravenous contrast. Sagittal and coronal reformatted images were obtained on the technologist's workstation. Oral contrast: No This CT examination was performed using dose optimization techniques as appropriate, variously including the following: *Automated exposure control *Adjustment of mA and/or kV according to patient size (this includes techniques or standardized protocols for targeted exams where dose is matched to indication/reason for exam; i.e. extremities or head) *Use of iterative reconstruction technique DLP: 1140.36 mGy centimeter. FINDINGS: LUNG BASES: No acute airspace disease. LIVER, GALLBLADDER, AND BILIARY TREE: Liver measures 15 cm. No focal mass. Heterogeneous enhancement of the liver parenchyma. Main portal veins, hepatic veins and intrahepatic portion of the IVC are patent. Fluid-filled. No pericholecystic fluid collection or gallbladder wall thickening. No intrahepatic or extrahepatic biliary ductal dilatation. PANCREAS: No focal lesion. No main pancreatic ductal dilatation. No peripancreatic fluid collections. SPLEEN: 10 cm. No focal lesion. ADRENAL GLANDS: No nodular lesions. KIDNEYS AND URETERS: No renal mass. No hydronephrosis. No gross nephrolithiasis. BLADDER: Fluid-filled. GASTROINTESTINAL TRACT: Hiatal hernia, small size. Appendix is normal. Terminal ileum is normal. Abundant stool, large intestine. No intestinal obstruction pattern. No pneumatosis intestinalis. No intestinal wall thickening. No pneumoperitoneum. No ascites. No fluid collections in the peritoneal cavity. ABDOMINAL WALL: Small fat-containing umbilical hernia. LYMPH NODES: No lymphadenopathy, mesenteric or retroperitoneal. VASCULAR: No aneurysm or dissection, abdominal aorta. PELVIC VISCERA: No gross masses. OSSEOUS STRUCTURES: Multilevel thoracolumbar spondylosis. S-shaped curvature of the thoracolumbar spine. No acute fracture or gross listhesis. No acute fracture or dislocation in either hip. Bony pelvis is intact. CT/CT abdomen pelvis w IV con IMPRESSION: Hiatal hernia, small size. Small fat-containing umbilical hernia. Probable hepatic steatosis, mild. Fleischner guidelines were followed. Electronically signed by: Homero Garner MD 01/27/2025 08:12 AM EDT RP
--- NOTE | ~2025-01-27 | XR_ITS ---
EXAMINATION: XR CHEST 1 VIEW HISTORY: fever COMPARISON: Comparison is made with the prior examination dated 07/25/2024. FINDINGS: A single AP portable view of the chest performed at 6:27 AM is submitted. The patient is slightly rotated to the left. The lungs are expanded and clear. There is no pleural effusion, pneumothorax, or pulmonary vascular congestion. The heart is normal in size. The bones are intact. XR/XR chest 1V IMPRESSION: No acute cardiopulmonary abnormality. Electronically signed by: Erik Flannery MD 01/27/2025 07:59 AM EDT
--- NOTE | ~2025-01-27 | CT_ITS ---
EXAMINATION: CT ANGIOGRAM CHEST CLINICAL INFORMATION: Fever. Shortness of breath. IV drug abuser COMPARISON: September 23, 2024. TECHNIQUE: Multiple axial images were obtained through the chest after the administration of 65 mL of Omnipaque 350 intravenous contrast. Extensive vascular post-processing including two-dimensional and three-dimensional reformatted images were created and reviewed on an independent workstation. SmartPrep technique. This CT examination was performed using dose optimization techniques as appropriate, variously including the following: *Automated exposure control *Adjustment of mA and/or kV according to patient size (this includes techniques or standardized protocols for targeted exams where dose is matched to indication/reason for exam; i.e. extremities or head) *Use of iterative reconstruction technique. DLP: 411.25 mGy centimeter. FINDINGS: Inadequate smart prepped technique. There is normal enhancement pattern without gross intraluminal filling defects within the main pulmonary artery or its main branches or its main subsegmental pulmonary branches. Thoracic aorta demonstrates normal caliber and enhancement pattern without focal stenosis or intimal flap. No hemomediastinum. No hemopericardium. No pneumomediastinum. No gross consolidation. No bronchiectasis. No honeycombing. No pleural effusion. No pneumothorax. No hemothorax. Respiratory airways is patent. No gross pulmonary nodules. No gross lymphadenopathy, mediastinum or perihilar or axillary. Small hiatal hernia. Multilevel spondylosis without acute fracture or gross listhesis. Sternum is intact. No acute fracture. Scapula and included clavicles are intact. Patient's large body habitus. The thyroid gland is not enlarged. CT/CT angio chest PE protocol IMPRESSION: No acute pulmonary artery emboli. No aneurysm or dissection. No acute airspace disease. Small hiatal hernia. Multilevel spondylosis. Fleischner guidelines were followed. Electronically signed by: Homero Garner MD 01/27/2025 08:04 AM EDT
--- NOTE | ~2025-01-27 | CT_ITS ---
CLINICAL HISTORY: severe abd pain CT angiography abdomen and pelvis. 3D Postprocessing. Comparison: CT/SR - CT ABDOMEN PELVIS W IV CON - 01/27/25 06:39 EDT Findings: The lung bases are clear. There is a very small hiatal hernia. There is hepatic steatosis. The gallbladder is mildly distended. There is no pericholecystic fat stranding. No stones are identified. The pancreas, spleen, adrenal glands, and kidneys are unremarkable. The aorta is normal in diameter and widely patent. Aortic branch vessels are widely patent. There is no evidence of mesenteric ischemia. The appendix is normal. The remainder of the gastrointestinal tract is unremarkable. There is no free fluid or free air. The bladder is decompressed with a Araujo catheter. Uterus and adnexa are unremarkable. There are no enlarged lymph nodes. There is no fracture or suspicious lytic or sclerotic lesion. IMPRESSION: 1. No evidence of mesenteric ischemia. 2. Nonspecific mild gallbladder distention. 3. Hepatic steatosis. This document has been electronically signed by: Pablo Hamilton MD on 01/28/2025 01:53:38
--- NOTE | ~2025-01-27 | NM_ITS ---
EXAMINATION: NM BILIARY TRACT CLINICAL INFORMATION: Abdominal pain, nausea, vomiting, GERD, gallbladder distention on same-day CT COMPARISON: Same-day CT scan Radioparhmaceutical: 5mCi technetium 99m labeled mebrofenin Other medications: 2.7mcg CCK infused IV over 30 minutes , one hour post injection of mebrofenin (a.k.a. Choletec) TECHNIQUE: Hepatobiliary scintigraphy was performed after the intravenous administration of technetium 99m labeled Choletec. Imaging was performed every 2 minutes for 60 minutes after which, CCK was infused IV over 30 minutes with imaging continuing for an additional 29minutes. Ejection fraction curve was generated with a region of interest placed over the gallbladder. FINDINGS: After Choletech injection, there is prompt uptake of radiotracer by the liver. Intrahepatic biliary filling was visible within 10 minutes and gallbladder filling was visible within 22minutes. Small bowel filling was noted after CCK administration. After CCK infusion, ejection fraction measured 80%. NM/NM hepatobiliary w pharm IMPRESSION: Within normal limits. Electronically signed by: Maninder Gaitan MD 01/28/2025 02:38 PM EDT
--- NOTE | 2025-01-27 05:08 | ECG_ITS ---
Test Reason : sepsis Blood Pressure : */* mmHG Vent. Rate : 160 BPM Atrial Rate : 160 BPM P-R Int : 112 ms QRS Dur : 84 ms QT Int : 314 ms P-R-T Axes : 63 79 55 degrees QTcB Int : 512 ms Sinus tachycardia Otherwise normal ECG When compared with ECG of 11-Jan-2025 15:37, Vent. rate has increased by 115 bpm Nonspecific T wave abnormality no longer evident in Anterior leads Referred By: Generic ED Physician Electronically Signed By: RAGHU STERN MD
[2025-01-27 05:20] LABS: Hematocrit 43.8 % (37.0-47.0); Hemoglobin 15.5 g/dl (12.0-16.0); Imm Gran Abs Auto 0.18 X10*3/uL (0.00-0.03); Imm Gran Pct Auto 0.8 % (0.0-0.4); Lymphocytes Absolute Auto 2.9 X10*3/uL (1.2-4.9); MANUAL DIFF FLAG NO; Mean Corpuscular HGB Conc 35.4 g/dl (31.0-35.0); Mean Corpuscular Hemoglobin 28.4 pg (27.0-33.0); Mean Corpuscular Volume 80.4 fL (80.0-98.0); NRBC Abs Auto 0.000 X10*3/uL (0.0-0.012); NRBC Pct Auto 0.0 /100WBC (0.0-0.2); Platelet Count 362 X10*3/uL (160-400); Red Blood Count 5.45 X10*6/uL (4.20-5.50); White Blood Count 21.9 X10*3/uL (4.8-10.8)
--- NOTE | 2025-01-27 05:25 | ED.GENADULT ---
HPI - General Adult General Chief complaint: Abdominal Pain Stated complaint: SEPSIS? bp 200/100 Time Seen by Provider: 01/27/25 05:25 History of Present Illness ED Provider: Afia ONEILL narrative: The patient is a 40-year-old woman who says that she has been sick for 2 days. She says that her symptoms began Monday morning. She says that she developed abdominal pain, nausea and vomiting that persisted during Monday and Monday and until this morning when she finally came to the emergency room by ambulance. She has had a fever and shaking chills. The the patient says that her chief complaint is her abdominal pain which she says is in the middle of her abdomen. She also has had nausea and vomiting. She denies any significant headache. She denies any sore throat. She denies any chest pain or shortness of breath or cough or sputum. She says that she has a history of opioid use disorder and is on methadone. She denies having taken any drugs other than methadone recently. She specifically denies cocaine or heroin. She denies using any needles at any time to take any drugs. She denies any alcohol use. She says she does not drink. Related Data Home Medications ?Medication ?Instructions ?Recorded ?Confirmed clonidine HCl 0.1 mg tablet 0.1 mg PO TID PRN anxiety 09/23/24 09/23/24 ibuprofen 200 mg tablet 400 mg PO Q6H PRN Fever Or Pain 09/23/24 09/23/24 methadone 10 mg/mL oral concentrate 75 mg PO DAILY 09/24/24 09/24/24 Previous Rx's ?Medication ?Instructions ?Recorded cefuroxime axetil 500 mg tablet 500 mg PO BID #12 tabs 09/24/24 doxycycline monohydrate 100 mg 100 mg PO Q12H #12 caps 09/24/24 capsule cyclobenzaprine 10 mg tablet 10 mg PO Q8H #20 tabs 01/11/25 meloxicam 15 mg tablet 15 mg PO DAILY #20 tabs 01/11/25 Allergies Allergy/AdvReac Type Severity Reaction Status Date / Time No Known Allergies (No Known Allergy Verified 01/27/25 05:04 Allergies*) Review of Systems Review of Systems: Yes all other systems are reviewed and are negative PMFSH Past Medical History Medical History Nausea Back pain Anxiety Hyperlipidemia Depression GERD (gastroesophageal reflux disease) Morbid obesity Knee pain, bilateral Back problem High cholesterol Family History Family History Mother Lung collapse Father Diabetes Heart attack Depression PTSD (post-traumatic stress disorder) Sister No problems noted. Sister No problems noted. Son No problems noted. Son No problems noted. Social History Social History Household Members: Children Housing: Apartment Do you presently have visiting nurse or other home services: No Alcohol intake: never Patient Tobacco Use Status: Never used Tobacco Cigarettes Per Day: 2 Advance Directives: No Advance Directives Information Provided: No Do you have a plan to hurt others: No Plan service: No Physical Exam ED Vital Signs: Vital Signs - 24 hr 01/27/25 05:02 01/27/25 06:20 01/27/25 07:38 Temperature 101.9 F H 100.1 F Pulse Rate 164 H 132 H 153 H Respiratory Rate 28 H 26 H 27 H Blood Pressure 113/59 L 125/54 L 141/74 H Pulse Oximetry 97 100 98 Oxygen Delivery Method Room Air Room Air Room Air 01/27/25 07:39 01/27/25 07:54 01/27/25 08:21 Temperature 100.1 F 100.6 F H 100.8 F H Pulse Rate 151 H 149 H 148 H Respiratory Rate 28 H 26 H 28 H Blood Pressure 141/74 H 145/56 H 142/62 H Pulse Oximetry 97 98 98 Oxygen Delivery Method Room Air Room Air 01/27/25 08:32 01/27/25 08:38 01/27/25 09:23 Temperature 100.8 F H 100.8 F H 100.9 F H Pulse Rate 143 H 141 H 151 H Respiratory Rate 23 H 20 27 H Blood Pressure 142/62 H 151/85 H 159/78 H Pulse Oximetry 99 97 97 Oxygen Delivery Method Room Air Room Air Room Air BMI result Body Mass Index 43.0 Const Other: The patient is awake and alert. She looks acutely ill. She has shaking chills and looks flushed. HENMT Other: Face is symmetrical. Mucous membranes are slightly dry. Posterior pharynx is unremarkable. Eyes Other: Pupils are somewhat large, round, reactive. Extraocular movements are intact. Minimal conjunctival injection. Neck Other: No cervical adenopathy. Moving her neck normally. Resp Effort & Inspection: normal respiratory effort Auscultation: clear to auscultation bilaterally Cardio Rate: tachycardic Rhythm: regular rhythm Heart sounds: S1 normal heart sound present and S2 normal heart sound present GI Other: Abdomen seems soft. She has generalized abdominal tenderness. Skin Other: The skin looks somewhat flushed. There is a patch of intertrigo in the skin below the pannus just above the suprapubic region. Neuro Other: The patient was shivering. However she was awake and alert with a normal mental status. Cranial nerves are grossly intact. She moves her extremities symmetrically and appropriately. Extrem Other: No pitting edema. No calf asymmetry or obvious tenderness. Medications Administered Generic Name Dose Route Start Last Admin Trade Name Freq PRN Reason Stop Dose Admin Magnesium Sulfate/Dextrose 1 gm in 100 mls @ 100 mls/hr 01/27/25 08:34 01/27/25 08:52 Magnesium Sulfate/D5w IV 01/27/25 09:33 100 mls/hr ONCE ONE Administration Discontinued Medications Generic Name Dose Route Start Last Admin Trade Name Freq PRN Reason Stop Dose Admin Acetaminophen 650 mg 01/27/25 05:15 01/27/25 05:18 Acetaminophen 325 Mg Tablet PO 01/27/25 05:16 650 mg ONCE ONE Administration Diazepam 5 mg 01/27/25 08:51 01/27/25 09:01 Diazepam 10 Mg/2 Ml Cartridge IVPUSH 01/27/25 08:52 5 mg STAT STA Administration Droperidol 0.625 mg 01/27/25 05:32 01/27/25 05:40 Droperidol 5 Mg/2 Ml Vial IVPUSH 01/27/25 05:33 0.625 mg ONCE ONE Administration Hydromorphone HCl 1 mg 01/27/25 07:17 01/27/25 07:30 Hydromorphone Hcl 1 Mg/Ml Syringe IVPUSH 01/27/25 07:18 1 mg ONCE ONE Administration Protocol Hydromorphone HCl 1 mg 01/27/25 08:12 01/27/25 08:20 Hydromorphone Hcl 1 Mg/Ml Syringe IVPUSH 01/27/25 08:13 1 mg ONCE ONE Administration Protocol Piperacillin Sod/Tazobactam 100 mls @ 200 mls/hr 01/27/25 05:28 01/27/25 06:16 Sod 4.5 gm/ Sodium Chloride IV 01/27/25 05:57 Infused ONCE ONE Infusion Sodium Chloride 1,000 mls @ 999 mls/hr 01/27/25 05:45 01/27/25 08:55 Ns IV 01/27/25 06:45 Infused .Q1H1M L[place]ISHA Infusion Vancomycin HCl 2,000 mg in 500 mls @ 250 mls/hr 01/27/25 05:51 01/27/25 06:17 Vancomycin/Ns IV 01/27/25 07:50 250 mls/hr ONCE ONE Administration Acetaminophen 1,000 mg in 100 mls @ 400 mls/hr 01/27/25 05:52 01/27/25 06:57 Ofirmev IV 01/27/25 06:06 Infused ONCE ONE Infusion Sodium Chloride 3,846 mls @ 3,846 mls/hr 01/27/25 05:58 01/27/25 08:32 Ns 30 ml/kg infuse over 1 hr (3846 ml) 01/27/25 06:57 Infused IV Infusion .Q1H STA Iohexol 100 ml 01/27/25 06:53 01/27/25 06:54 Iohexol 350 Mg/Ml 100 Ml Infus..Btl IV 01/27/25 06:54 100 ml ONCE ONE Administration Ketorolac Tromethamine 15 mg 01/27/25 08:40 01/27/25 08:52 Ketorolac Tromethamine 15 Mg/Ml Vial IVPUSH 01/27/25 08:41 15 mg ONCE ONE Administration Morphine Sulfate 4 mg 01/27/25 05:32 01/27/25 05:40 Morphine Sulfate 4 Mg/Ml Cartridge IVPUSH 01/27/25 05:33 4 mg ONCE ONE Administration Protocol Medical Decision Making Medical Decision Making MDM Narrative: The patient is a 40-year-old female. She has a history of opioid use disorder and is on methadone. She denies ever having used injectable drugs and denies using cocaine. She also denies alcoholism. She presents with 2 days of symptoms that she says began with abdominal pain and vomiting. Those are her chief complaints. She arrived very tachycardic with shaking chills and very flushed with a large pupils. Labs were sent an antibiotics were ordered. Her lactate came back at 12. A 30 mL/kilos bolus of fluids was ordered. Vancomycin and Zosyn were ordered. She was given IV acetaminophen for her fever. Her initial labs showed a very elevated lactate. She also had some reduced kidney function. However she had a near normal CRP. Additionally she has a normal pH. A CT of the chest, abdomen, and pelvis were done to look for a source of infection. These were all unremarkable. The skin shows some slight intertrigo in the pannus of her lower abdomen but no definite cellulitis seems apparent. 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 She has no sore throat in her pharynx is unremarkable. No adenopathy in the neck. No goiter. Despite receiving multiple L of fluid, IV acetaminophen, an IV ketorolac (once her renal function had normalized) she remained somewhat febrile and she remained significantly tachycardic. She is in sinus tachycardia. She was given 1 g of IV magnesium for mild hypomagnesemia. She was given a dose of diazepam in case there may be some degree of alcohol withdrawal. The patient tested positive for fentanyl as well as methadone. This would contradict what the patient had said about her drug use. She had denied using any illicit drugs. However when told that she had tested positive for fentanyl she continued to deny using any IV drugs and continued to deny any cocaine or alcohol use. At the end of my shift the source of her feverish still not clear. She is quite tachycardic. I will be signing the patient out to my colleague at change of shift. I have added on a TSH. Lab Data 01/27/25 05:14 01/27/25 07:36 Labs: Lab Results 01/27/25 01/27/25 01/27/25 Range/Units 05:14 05:14 07:36 WBC 21.9 H (4.8-10.8) X10*3/uL RBC 5.45 (4.20-5.50) X10*6/uL Hgb 15.5 (12.0-16.0) g/dl Hct 43.8 (37.0-47.0) % MCV 80.4 (80.0-98.0) fL MCH 28.4 (27.0-33.0) pg MCHC 35.4 H (31.0-35.0) g/dl RDW 13.2 (11.0-16.0) % Plt Count 362 D (160-400) X10*3/uL MPV 9.2 L (9.4-12.3) fL Immature Gran % (Auto) 0.8 H (0.0-0.4) % Neut % (Auto) 81.0 H (45-73) % Lymph % (Auto) 13.1 L (20-40) % [place] % (Auto) 4.8 (2-11) % Eos % (Auto) 0.0 (0-4) % Baso % (Auto) 0.3 (0-2) % Lymph # (Auto) 2.9 (1.2-4.9) X10*3/uL [place] # (Auto) 1.1 (0.1-1.2) X10*3/uL Eos # (Auto) 0.0 (0.0-0.4) X10*3/uL Baso # (Auto) 0.1 (0.0-0.2) X10*3/uL Abs Immat Gran (auto) 0.18 H (0.00-0.03) X10*3/uL Absolute Neuts (auto) 17.7 H (2.0-8.3) x10*3/uL Absolute Nucleated RBC 0.000 (0.0-0.012) X10*3/uL Nucleated RBC % (auto) 0.0 (0.0-0.2) /100WBC PT 15.1 H D (10.9-12.4) SEC INR 1.3 H (0.9-1.1) VBG pH (7.32-7.43) VBG pCO2 mmHg VBG pO2 mmHg VBG HCO3 (22-26) mmol/L VBG O2 Saturation % VBG Base Excess mmol/L Sodium 142 143 (135-145) mmol/L Potassium 3.9 3.6 (3.3-5.1) mmol/L Chloride 101 108 (96-108) mmol/L Carbon Dioxide 15 L 18 L (22-29) mmol/L Anion Gap 30 H 21 H (12-20) BUN 14 13 (9-16) mg/dL Creatinine 1.26 0.97 (0.5-1.4) mg/dL Estim Creat Clear Calc 83.9 109.1 Estimated GFR 47 > 60 Random Glucose 237 H 194 H (60-115) mg/dL Lactic Acid 12.0 H* (0.5-2.0) mmol/L Lactic Acid F/U @ 2Hr 5.8 H* (0.5-2.0) mmol/L Calcium 9.5 8.1 L D (8.4-10.2) mg/dL Magnesium 1.5 L Cancelled (1.6-2.6) mg/dL Total Bilirubin 0.9 (0.0-1.0) mg/dL Direct Bilirubin 0.3 (0.0-0.5) mg/dL AST 119 H (5-31) U/L ALT 161 H (0-31) U/L Alkaline Phosphatase 81 (39-117) U/L Total Creatine Kinase 83 87 (26-140) U/L Troponin I High Sens 420.7 H* D 508.6 H* (<3.5-17.0) ng/L C-Reactive Protein 1.03 H (< or = 0.50) mg/dL Total Protein 8.2 H (6.5-8.0) g/dL Albumin 4.3 (3.5-5.0) g/dL Lipase 11 (8-78) U/L Beta HCG, Quant < 2 mIU/mL Urine Color Urine Appearance Urine pH (5.0-9.0) Ur Specific [place] (1.005-1.025) Urine Protein (Neg-Trace) mg/dL Urine Glucose (UA) (Negative) mg/dL Urine Ketones (Negative) mg/dL Urine Blood (Negative) Urine Nitrite (Negative) Ur Leukocyte Esterase (Negative) Urine RBC (0-2) /HPF Urine WBC (0-5) /HPF Ur Squamous Epith Cells (0-2) /HPF Urine Bacteria (None Seen) Hyaline Casts (0-2) /LPF Urine Opiates Screen (Not Detect) Ur Buprenorphine Scrn (Not Detect) ng/mL Ur Oxycodone Screen (Not Detect) ng/mL Urine Methadone Screen (Not Detect) ng/mL Urine Fentanyl Screen (Not Detect) Ur Barbiturates Screen (Not Detect) Ur Phencyclidine Scrn (Not Detect) Ur Amphetamines Screen (Not Detect) U Benzodiazepines Scrn (Not Detect) Urine Cocaine Screen (Not Detect) U Marijuana (THC) Screen (Not Detect) Ethyl Alcohol < 10 mg/dL Influenza Type A (PCR) (Negative) Influenza Type B (PCR) (Negative) RSV RNA Qual (PCR) (Negative) SARS-CoV-2 RNA (RT-PCR) (Negative) 01/27/25 01/27/25 Range/Units 07:41 08:12 WBC (4.8-10.8) X10*3/uL RBC (4.20-5.50) X10*6/uL Hgb (12.0-16.0) g/dl Hct (37.0-47.0) % MCV (80.0-98.0) fL MCH (27.0-33.0) pg MCHC (31.0-35.0) g/dl RDW (11.0-16.0) % Plt Count (160-400) X10*3/uL MPV (9.4-12.3) fL Immature Gran % (Auto) (0.0-0.4) % Neut % (Auto) (45-73) % Lymph % (Auto) (20-40) % [place] % (Auto) (2-11) % Eos % (Auto) (0-4) % Baso % (Auto) (0-2) % Lymph # (Auto) (1.2-4.9) X10*3/uL [place] # (Auto) (0.1-1.2) X10*3/uL Eos # (Auto) (0.0-0.4) X10*3/uL Baso # (Auto) (0.0-0.2) X10*3/uL Abs Immat Gran (auto) (0.00-0.03) X10*3/uL Absolute Neuts (auto) (2.0-8.3) x10*3/uL Absolute Nucleated RBC (0.0-0.012) X10*3/uL Nucleated RBC % (auto) (0.0-0.2) /100WBC PT (10.9-12.4) SEC INR (0.9-1.1) VBG pH 7.42 (7.32-7.43) VBG pCO2 27 mmHg VBG pO2 93 mmHg VBG HCO3 18 L (22-26) mmol/L VBG O2 Saturation 100.0 % VBG Base Excess -4.8 mmol/L Sodium (135-145) mmol/L Potassium (3.3-5.1) mmol/L Chloride (96-108) mmol/L Carbon Dioxide (22-29) mmol/L Anion Gap (12-20) BUN (9-16) mg/dL Creatinine (0.5-1.4) mg/dL Estim Creat Clear Calc Estimated GFR Random Glucose (60-115) mg/dL Lactic Acid (0.5-2.0) mmol/L Lactic Acid F/U @ 2Hr (0.5-2.0) mmol/L Calcium (8.4-10.2) mg/dL Magnesium (1.6-2.6) mg/dL Total Bilirubin (0.0-1.0) mg/dL Direct Bilirubin (0.0-0.5) mg/dL AST (5-31) U/L ALT (0-31) U/L Alkaline Phosphatase (39-117) U/L Total Creatine Kinase (26-140) U/L Troponin I High Sens (<3.5-17.0) ng/L C-Reactive Protein (< or = 0.50) mg/dL Total Protein (6.5-8.0) g/dL Albumin (3.5-5.0) g/dL Lipase (8-78) U/L Beta HCG, Quant mIU/mL Urine Color Yellow Urine Appearance Clear Urine pH 5.5 (5.0-9.0) Ur Specific [place] >= 1.030 H (1.005-1.025) Urine Protein 30 (1+) H (Neg-Trace) mg/dL Urine Glucose (UA) 100 H (Negative) mg/dL Urine Ketones 40 (Negative) mg/dL Urine Blood Negative (Negative) Urine Nitrite Negative (Negative) Ur Leukocyte Esterase Negative (Negative) Urine RBC 0-2 (0-2) /HPF Urine WBC 0-5 (0-5) /HPF Ur Squamous Epith Cells 0-2 (0-2) /HPF Urine Bacteria None Seen (None Seen) Hyaline Casts 3-5 (0-2) /LPF Urine Opiates Screen POSITIVE H (Not Detect) Ur Buprenorphine Scrn Not Detected (Not Detect) ng/mL Ur Oxycodone Screen Not Detected (Not Detect) ng/mL Urine Methadone Screen Positive H (Not Detect) ng/mL Urine Fentanyl Screen POSITIVE H (Not Detect) Ur Barbiturates Screen Not Detected (Not Detect) Ur Phencyclidine Scrn Not Detected (Not Detect) Ur Amphetamines Screen Not Detected (Not Detect) U Benzodiazepines Scrn Not Detected (Not Detect) Urine Cocaine Screen Not Detected (Not Detect) U Marijuana (THC) Screen Not Detected (Not Detect) Ethyl Alcohol mg/dL Influenza Type A (PCR) NEGATIVE (Negative) Influenza Type B (PCR) NEGATIVE (Negative) RSV RNA Qual (PCR) NEGATIVE (Negative) SARS-CoV-2 RNA (RT-PCR) NEGATIVE (Negative) Independent Interpretation I performed an independent interpretation of an: EKG Interpretation: EKG at 05:07 shows sinus tachycardia at 160 beats per minute. QT see is 512. Critical Care Time Critical Care Time Critical Care Time: Yes Total Critical Care Time: 60 Attestation: The patient was critically ill with a high probability of imminent or life-threatening deterioration. ?I spent greater than 30 minutes of discontinuous time evaluating the patient, delivering critical care at the bedside, discussing evaluating data with consultants. ?Critical care time does not include time spent performing separately billable procedures or teaching. ?Time spent performing critical care with 60 minutes. Discharge Plan Discharge Clinical Impression: Fever, Shaking chills, Facial flushing, Abdominal pain with vomiting, Opioid use disorder, Sinus tachycardia Prescriptions: No Action meloxicam 15 mg tablet 15 mg PO DAILY Qty: 20 0RF cyclobenzaprine 10 mg tablet 10 mg PO Q8H Qty: 20 0RF clonidine HCl 0.1 mg tablet 0.1 mg PO TID PRN (Reason: anxiety) ibuprofen 200 mg Tablet 400 mg PO Q6H PRN (Reason: Fever Or Pain) methadone 10 mg/mL Concentrate 75 mg PO DAILY doxycycline monohydrate 100 mg Capsule 100 mg PO Q12H Qty: 12 0RF cefuroxime axetil 500 mg tablet 500 mg PO BID Qty: 12 0RF Print Language: Kyrgyz
[2025-01-27 05:42] LABS: Alanine Aminotransferase 161 U/L (0-31); Albumin Level 4.3 g/dL (3.5-5.0); Alkaline Phosphatase 81 U/L (39-117); Anion Gap 30 (12-20); Aspartate Amino Transferase 119 U/L (5-31); Blood Urea Nitrogen 14 mg/dL (9-16); Calcium 9.5 mg/dL (8.4-10.2); Carbon Dioxide 15 mmol/L (22-29); Chloride 101 mmol/L (96-108); Creatinine Clr Calc Pharmacy 83.9; Estimated Glomerular Filt Rate 47; Lipase 11 U/L (8-78); Potassium 3.9 mmol/L (3.3-5.1); Sodium 142 mmol/L (135-145); Total Protein 8.2 g/dL (6.5-8.0)
[2025-01-27 05:46] LABS: Troponin-I High Sensitivity 420.7 ng/L (<3.5-17.0)
--- OUTSIDE RECORDS SUMMARY | 2025-01-27 05:55 | XMS_ITS | Clinical Summary ---
Author Organization [facility] ity Address [address] [place] [address] Care Team Providers Care Gastrointestinal Technician Name Role Phone Taina Roth MD Primary Care Provider [phone] Allergies No known active allergies Medications QUEtiapine [...] Health Maintenance Due Date Last Done Comments Breast Cancer Screening 1985 DTaP,Tdap,and Td Vaccines (1 - Tdap) 01/17/2004 Hepatitis B Vaccines (1 of 3 - 19+ 3-dose series) 01/17/2004 Cervical Cancer Screening: P ap Smear 2006 COVID-19 Vaccine ( - 2023-2 5 season) 2024 Depression Screening 05/24/2024 HIV Screening 05/24/2024 Hepatitis C Screening 05/24/2024 Social Influencers of Health Screening 05/24/2024 Influenza Vaccine (Season Ended) 2025 HIB Vaccines Aged Out No longer eligi [...] age to complete this topic Meningococcal B Vaccine Aged Out No l onger eligible based on patient's age to complete [...] age to complete this topic Care Teams Gastrointestinal Technician Relationship Specialty Start Date End Date Taina Roth MD PCP - General 09/14/23
[2025-01-27] MEDS: SODIUM CHLORIDE 3846 ML IV (06:05)
[2025-01-27] MEDS: vancomycin/NS 2,000 MG/500 ML PLAST..BAG 250 MG IV (06:17)
[2025-01-27] MEDS: iohexoL 350 MG/ML 100 ML INFUS..BTL IV (06:54)
[2025-01-27 07:19] LABS: Reflex Lactate? Lactic Acid Added
--- NOTE | 2025-01-27 07:41 | MHC.EDTECH ---
This tech took over care of patient at 0700am,rounded and introduced self to pt, vitals taken,temp is 100.4,HR 151,RN aware at bedside, repeat labs drawn and sent to lab. Call vlilafana in reach
[2025-01-27 07:45] LABS: VBG HCO3 18 mmol/L (22-26); VBG O2 % Saturation 100.0 %
[2025-01-27 07:47] LABS: Venous Blood Gas Refer to POC result
[2025-01-27 07:50] LABS: INTERNATIONAL NORM RATIO 1.3 (0.9-1.1); Prothrombin Time 15.1 SEC (10.9-12.4)
[2025-01-27 07:59] LABS: Magnesium 1.5 mg/dL (1.6-2.6)
[2025-01-27 07:59] LABS: Anion Gap 21 (12-20); Blood Urea Nitrogen 13 mg/dL (9-16); Calcium 8.1 mg/dL (8.4-10.2); Carbon Dioxide 18 mmol/L (22-29); Chloride 108 mmol/L (96-108); Creatinine Clr Calc Pharmacy 109.1; Estimated Glomerular Filt Rate > 60; Potassium 3.6 mmol/L (3.3-5.1); Sodium 143 mmol/L (135-145)
[2025-01-27 08:01] LABS: ~Lactic Acid-LAB USE ONLY 5.8 mmol/L (0.5-2.0)
--- NOTE | 2025-01-27 08:17 | MHC.EDTECH ---
Assisted Francisca FUENTES with a temp sensing [place], Pt tolerated well. Core temp is 100.8,Sars/Flu/RSV and urine obtained and sent to lab. Applied ice packs per request of pt behind neck and forehead in pillow case.
[2025-01-27 08:18] LABS: Appearance Urine Clear; Glucose Urine UA 100 mg/dL (Negative); PH 5.5 (5.0-9.0); Specific Gravity - Urine >= 1.030 (1.005-1.025); UMIC TRIGGER UACC YES
[2025-01-27 08:39] LABS: Cannabinoid Screen Urine Not Detected (Not Detect)
[2025-01-27] MEDS: diazePAM 10 MG/2 ML CARTRIDGE 5 MG IVPUSH (09:01)
[2025-01-27 09:08] LABS: Troponin-I High Sensitivity 508.6 ng/L (<3.5-17.0)
[2025-01-27 09:19] LABS: Resp Syncy Virus RNA Qual PCR NEGATIVE (Negative); SARS COV2 PCR INHOUSE NEGATIVE (Negative)
[2025-01-27 09:40] LABS: Reflex Lactate? 2 Y
--- NOTE | 2025-01-27 09:51 | MHC.EDTECH ---
Repeat lactic drawn and sent to lab, belongings list completed,copy placed in chart
[2025-01-27] MEDS: Lactated Ringers 1,000 ML 999 ML IV (10:02)
[2025-01-27 10:15] LABS: Thyroid Stimulating Hormone 0.74 uIU/mL (0.32-4.0)
[2025-01-27 10:19] LABS: ~Lactic Acid-LAB USE ONLY 3.0 mmol/L (0.5-2.0)
--- NOTE | 2025-01-27 10:41 | PHA.MEDREC ---
Addendum entered by Ky Zaldivar PharmD 01/27/25 10:43: reviewed Original Note: Pharmacy Consult ? Medication Reconciliation Pharmacy has completed the medication reconciliation. Spoke with pt, she confirmed her medications. Pt confirmed she was not able to start the Meloxicam due to her pharmacy not having it in stock.
--- NOTE | 2025-01-27 11:34 | PM.IMHP ---
History of Present Illness Date of Service: 01/27/25 Attending physician on admission: Cj Corbin Chief Complaint: Abdominal pain Pt is a 40-year-old female with a PMH significant for opiate use disorder, hepatitis-C untreated, anxiety, and depression?who presents to the ED with?shaking chills, nausea, vomiting, and upper abdominal pain x3 days. Pt reports symptoms began Monday and has had persistent nausea with multiple episodes of vomiting since then. Has not been able to keep down either food or fluids. Abdominal pain has been persistent and diffuse, but mostly located in the upper abdomen. Also complains of intermittent racing heart, but no chest pain or pressure. Denies diarrhea. Pt reports has been clean for some time, though recently relapsed 2 weeks ago. Reports takes heroin intranasally; denies any hx of IVDU. Also denies hx of alcohol use. Denies headache, neck pain, back pain. No acute vision changes. Denies changes to bowel or bladder habits. In the ED pt was febrile up to 101.9, persistently tachycardic up to 164, tachypneic up to 28, and hypertensive as high as 159/78, satting at 97% RA. Labs were significant for leukocytosis of 21.9, bicarb 15 with repeat 18, creatinine 1.26 with repeat 0.97, glucose 237, initial lactic acid 12.0 with repeats 5.9 and 3.0, magnesium 1.5, AST 119, ALT 161, initial troponin 420.7 with repeat flat at 508.6, CRP 1.03. Stable H&H. TSH WNL. UA negative for UTI. Tested negative for flu, COVID, RSV. CXR showed no acute cardiopulmonary abnormality. CTA of chest negative for PE, aneurysm or dissection, or acute airspace disease. Did show small hiatal hernia. CT of abdomen/pelvis redemonstrated small hiatal hernia, small fat containing umbilical hernia, and probable mild hepatic steatosis. EKG demonstrated sinus tachycardia of 160 without evidence of significant ischemic changes. Pt was treated in the ED with acetaminophen, morphine, droperidol, sepsis bolus fluids, hydromorphone, ketorolac, diazepam, vancomycin, and Zosyn. Pt is admitted to the hospital for treatment and further evaluation of SIRS criteria with severe features of unclear etiology. Review of Systems Review of Systems: Negative except for that which is stated in the HPI. [facility] Medical History (Updated 01/27/25 @ 13:16 by SANDEE Vo) Opioid use disorder Nausea Back pain Anxiety Hyperlipidemia Depression GERD (gastroesophageal reflux disease) Morbid obesity Knee pain, bilateral Back problem High cholesterol Family History Mother Lung collapse Father Diabetes Heart attack Depression PTSD (post-traumatic stress disorder) Sister No problems noted. Sister No problems noted. Son No problems noted. Son No problems noted. Social History Household Members: Children Housing: Apartment Do you presently have visiting nurse or other home services: No Alcohol intake: never Patient Tobacco Use Status: Never used Tobacco Cigarettes Per Day: 2 Advance Directives: No Advance Directives Information Provided: No Do you have a plan to hurt others: No Plan service: No Meds Allergies Allergy/AdvReac Type Severity Reaction Status Date / Time No Known Allergies (No Known Allergy Verified 01/27/25 05:04 Allergies*) Home Medications ?Medication ?Instructions ?Recorded ?Confirmed ?Last Taken ?Type clonidine HCl 0.1 mg tablet 0.1 mg PO TID PRN anxiety 09/23/24 01/27/25 Unknown History ibuprofen 200 mg tablet 400 mg PO Q6H PRN Fever Or Pain 09/23/24 01/27/25 09/23/24 History methadone 10 mg/mL oral concentrate 85 mg PO DAILY 09/24/24 09/24/24 01/26/25 History cyclobenzaprine 10 mg tablet 10 mg PO Q8H PRN Muscle Spasm 01/27/25 01/27/25 Unknown History Physical Exam Vital Signs and Narrative: Vital Signs: Last Vital Signs Temp 100.8 F H 01/27/25 10:53 Pulse 144 H 01/27/25 10:53 Resp 26 H 01/27/25 10:53 BP 157/74 H 01/27/25 10:53 Pulse Ox 97 01/27/25 10:53 O2 Del Method Room Air 01/27/25 10:53 BMI result Body Mass Index 43.0 General: AOx3, pt laying on bed with uncontrollable rigors Face: Face appears flushed Resp: CTA bilaterally CVS: S1, S2, RRR GI: +BS, no distention, soft. Abd exquisitely tender Skin: Warm, dry Neuro: Cranial nerves II-XII grossly intact bilaterally. Motor grossly intact bilaterally. No menigeal signs Extremities: No edema Psych: Appropriate affect Results Labs 01/27/25 05:14 01/27/25 07:36 Labs: Laboratory Results - last 24 hr 01/27/25 01/27/25 01/27/25 05:14 05:14 07:36 MCV 80.4 MCH 28.4 MCHC 35.4 H RDW 13.2 Plt Count 362 D MPV 9.2 L Immature Gran % (Auto) 0.8 H Neut % (Auto) 81.0 H Lymph % (Auto) 13.1 L [place] % (Auto) 4.8 Eos % (Auto) 0.0 Baso % (Auto) 0.3 Lymph # (Auto) 2.9 [place] # (Auto) 1.1 Eos # (Auto) 0.0 Baso # (Auto) 0.1 Abs Immat Gran (auto) 0.18 H Absolute Neuts (auto) 17.7 H Absolute Nucleated RBC 0.000 Nucleated RBC % (auto) 0.0 PT 15.1 H D INR 1.3 H VBG pH VBG pCO2 VBG pO2 VBG HCO3 VBG O2 Saturation VBG Base Excess Anion Gap 30 H 21 H Estim Creat Clear Calc 83.9 109.1 Estimated GFR 47 > 60 Random Glucose 237 H 194 H Lactic Acid 12.0 H* Lactic Acid F/U @ 2Hr 5.8 H* Lactic Acid F/U @ 4Hr Calcium 9.5 8.1 L D Magnesium 1.5 L Cancelled Total Bilirubin 0.9 Direct Bilirubin 0.3 AST 119 H ALT 161 H Alkaline Phosphatase 81 Total Creatine Kinase 83 87 Troponin I High Sens 420.7 H* D 508.6 H* C-Reactive Protein 1.03 H Total Protein 8.2 H Albumin 4.3 Lipase 11 TSH 0.74 Beta HCG, Quant < 2 Urine Color Urine Appearance Urine pH Ur Specific [place] Urine Protein Urine Glucose (UA) Urine Ketones Urine Blood Urine Nitrite Ur Leukocyte Esterase Urine RBC Urine WBC Ur Squamous Epith Cells Urine Bacteria Hyaline Casts Urine Opiates Screen Ur Buprenorphine Scrn Ur Oxycodone Screen Urine Methadone Screen Urine Fentanyl Screen Ur Barbiturates Screen Ur Phencyclidine Scrn Ur Amphetamines Screen U Benzodiazepines Scrn Urine Cocaine Screen U Marijuana (THC) Screen Ethyl Alcohol < 10 Influenza Type A (PCR) Influenza Type B (PCR) RSV RNA Qual (PCR) SARS-CoV-2 RNA (RT-PCR) 01/27/25 01/27/25 01/27/25 07:41 08:12 09:49 MCV MCH MCHC RDW Plt Count MPV Immature Gran % (Auto) Neut % (Auto) Lymph % (Auto) [place] % (Auto) Eos % (Auto) Baso % (Auto) Lymph # (Auto) [place] # (Auto) Eos # (Auto) Baso # (Auto) Abs Immat Gran (auto) Absolute Neuts (auto) Absolute Nucleated RBC Nucleated RBC % (auto) PT INR VBG pH 7.42 VBG pCO2 27 VBG pO2 93 VBG HCO3 18 L VBG O2 Saturation 100.0 VBG Base Excess -4.8 Anion Gap Estim Creat Clear Calc Estimated GFR Random Glucose Lactic Acid Lactic Acid F/U @ 2Hr Lactic Acid F/U @ 4Hr 3.0 H* Calcium Magnesium Total Bilirubin Direct Bilirubin AST ALT Alkaline Phosphatase Total Creatine Kinase Troponin I High Sens C-Reactive Protein Total Protein Albumin Lipase TSH Beta HCG, Quant Urine Color Yellow Urine Appearance Clear Urine pH 5.5 Ur Specific [place] >= 1.030 H Urine Protein 30 (1+) H Urine Glucose (UA) 100 H Urine Ketones 40 Urine Blood Negative Urine Nitrite Negative Ur Leukocyte Esterase Negative Urine RBC 0-2 Urine WBC 0-5 Ur Squamous Epith Cells 0-2 Urine Bacteria None Seen Hyaline Casts 3-5 Urine Opiates Screen POSITIVE H Ur Buprenorphine Scrn Not Detected Ur Oxycodone Screen Not Detected Urine Methadone Screen Positive H Urine Fentanyl Screen POSITIVE H Ur Barbiturates Screen Not Detected Ur Phencyclidine Scrn Not Detected Ur Amphetamines Screen Not Detected U Benzodiazepines Scrn Not Detected Urine Cocaine Screen Not Detected U Marijuana (THC) Screen Not Detected Ethyl Alcohol Influenza Type A (PCR) NEGATIVE Influenza Type B (PCR) NEGATIVE RSV RNA Qual (PCR) NEGATIVE SARS-CoV-2 RNA (RT-PCR) NEGATIVE Imaging Radiologist's Impressions: Impressions Abdomen/Pelvis CT 01/27/25 05:39 IMPRESSION: Hiatal hernia, small size. Small fat-containing umbilical hernia. Probable hepatic steatosis, mild. Fleischner guidelines were followed. Electronically signed by: Homero Garner MD 01/27/2025 08:12 AM EDT RP Chest CTA 01/27/25 05:39 IMPRESSION: No acute pulmonary artery emboli. No aneurysm or dissection. No acute airspace disease. Small hiatal hernia. Multilevel spondylosis. Fleischner guidelines were followed. Electronically signed by: Homero Garner MD 01/27/2025 08:04 AM EDT RP Chest X-Ray 01/27/25 06:30 IMPRESSION: No acute cardiopulmonary abnormality. Electronically signed by: Erik Flannery MD 01/27/2025 07:59 AM EDT RP Assessment and Plan (1) Sepsis: Status: Acute Plan Pt is a 40-year-old female with a PMH significant for opiate use disorder, hepatitis-C untreated, anxiety, and depression?who presents to the ED with?shaking chills, nausea, vomiting, and upper abdominal pain x3 days. Pt is admitted to the hospital for treatment and further evaluation of SIRS criteria with severe features of unclear etiology. Sepsis with severe features Pt with upper abdominal pain, N/V, fever/chills, and racing heart x3 days Meets severe sepsis with fever, tachycardia, tachypnea, leukocytosis 20.9, and lactic acid 12.0 reduced to 3.0 after IVF Pt received IV sepsis bolus fluids and started on broad-spectrum antibiotics in the ED Unclear etiology: CXR negative, chest CTA negative, CT of abd/pelvis negative, RSV/COVID/flu negative, UA negative No meningeal signs, no PENA, neck pain, or vision changes; no indication for LP at this time Bacteremia, ischemic colitis, and carcinoid tumor on the differential Continued abdominal pain out of proportion with exam; we will get General surgery consult to evaluate for possible ischemic colitis GI consult for possible carcinoid tumor Will treat with empiric vanc and Zosyn, started 01/27/2025 Acetaminophen for fever, analgesics for pain management, Protonix IV Follow up blood cultures, labs Tachycardia Persistent tachycardia in 140s, likely multifactorial: In setting of sepsis and secondary to pain Will hold on echocardiogram and Cardiology consult Monitor on telemetry Hypomagnesemia Magnesium 1.5 at time of presentation Received Mag 2g in the ED Trend labs Elevated troponins Initial troponin 420.7 with repeat flat at 508.6 EKG nonischemic, pt denies chest pain/pressure Likely type 2 in the setting of increased demand Monitor on telemetry MOISES, resolved Initial creatinine 1.26 (previous 0.85), normalized 0.97 after IVF Follow creatinine Hepatitis-C Untreated, diagnosed a few years ago Pt with transaminitis Denies hx of alcohol use Follow up outpatient for treatment Opioid use disorder Recent relapsed 2 weeks ago after sometime being clean Takes heroin intranasally, denies hx of IVDU Continue methadone once verified and pt able to tolerate p.o. Addiction medicine consult Full Code Attending:?Dr. Corbin DVT Prophylaxis: Pneumatic compression due to possible surgical procedure Pt will require a hospitalization of at least two nights for treatment of?severe sepsis of unclear etiology with bacteremia, ischemic bowel, and carcinoid tumor currently still on the differential. Pt will need hospital level care for administration of empiric IV antibiotics while awaiting blood cultures and specialist consultation for possible exploratory laparotomy. Quality Stroke Does the patient have a stroke diagnosis?: No VTE Prior VTE?: No VTE Risk Level:: Medical - moderate - high VTE Device Contraindication: Treatment Not Indicated VTE Drug Contraindication: N/A - Med Ordered
--- NOTE | 2025-01-27 14:32 | PC.NURSE ---
Pt continues to endorse high levels of pain despite multiple doses and different types of medications.
[2025-01-27 14:48] LABS: Chlamydia pneumoniae PCR Not Detected (Not Detect.); Coronavirus 229E PCR Not Detected (Not Detect.); Coronavirus HKU1 PCR Not Detected (Not Detect.); Coronavirus NL63 PCR Not Detected (Not Detect.); Coronavirus OC43 PCR Not Detected (Not Detect.)
[2025-01-27 14:49] LABS: Influenza A H1 PCR Not Detected (Not Detect.); Influenza A H1-2009 PCR Not Detected (Not Detect.); Influenza A H3 PCR Not Detected (Not Detect.); RSV PCR Not Detected (Not Detect.); Rhino/Enterovirus PCR Not Detected (Not Detect.); SARS-CoV-2 PCR Not Detected (Not Detect.)
--- NOTE | 2025-01-27 15:48 | PM.CNGS ---
History of Present Illness Consult details Consult date: 01/27/25 <Quyen Stanford PA-C - Last Filed: 01/27/25 16:00> Requesting physician: Geovani Rice <Quyen Stanford PA-C - Last Filed: 01/27/25 16:00> Narrative: 40-year-old female with PMH opiate use disorder, hepatitis-C untreated, anxiety, and depression who presented to the ED for evaluation of acute onset abdominal pain, nausea/vomiting. She reports she was in her usual state of health until she developed pain across her upper abdomen on Monday. This was associated with nausea and multiple episodes of vomiting. She was unable to keep any oral intake down. She also developed fever and chills with tmax of 101. Due to the persistence and severity of her symptoms, she was brought in by EMS for evaluation. She had multiple lab abnormalities upon work up including a leukocytosis of 21.9, lactic acid of 12, elevated tropinin. She was febrile, tachycardic and is now hypertensive. She had extensive imaging including CT scan abd pelvis which showed no acute process, no free air, no pneumatosis intestinalis, intestinal wall thickening or fluid collections. She denies diarrhea, hematochezia, melena, hematemesis, dysruia, hematuria, sick contacts, recent travel, drug use. She denies prior abd surgery. <Quyen Stanford PA-C - Last Filed: 01/27/25 16:00> Review of Systems Review of Systems: Yes all other systems are reviewed and are negative <Quyen Stanford PA-C - Last Filed: 01/27/25 16:00> [facility] Past Medical History Medical History: Medical History (Updated 01/27/25 @ 16:05 by Vladimir Maldonado MD) Opioid use disorder Nausea Back pain Anxiety Hyperlipidemia Depression GERD (gastroesophageal reflux disease) Morbid obesity Knee pain, bilateral Back problem High cholesterol <Quyen Stanford PA-C - Last Filed: 01/27/25 16:00> Family History Family History: Family History Mother Lung collapse Father Diabetes Heart attack Depression PTSD (post-traumatic stress disorder) Sister No problems noted. Sister No problems noted. Son No problems noted. Son No problems noted. <Quyen Stanford PA-C - Last Filed: 01/27/25 16:00> Social History Social History: Social History Household Members: Children Housing: Apartment Do you presently have visiting nurse or other home services: No Alcohol intake: never Patient Tobacco Use Status: Never used Tobacco Cigarettes Per Day: 2 Advance Directives: No Advance Directives Information Provided: No Do you have a plan to hurt others: No Plan service: No <Quyen Stanford PA-C - Last Filed: 01/27/25 16:00> Meds Allergies/Adverse reactions: Allergies Allergy/AdvReac Type Severity Reaction Status Date / Time No Known Allergies (No Known Allergy Verified 01/27/25 05:04 Allergies*) <Quyen Stanford PA-C - Last Filed: 01/27/25 16:00> Active Medications: Current Medications Acetaminophen (Acetaminophen 325 Mg Tablet) 650 mg PO Q6H PRN PRN Reason: Pain, Mild 1-3,fever,headache Calcium Carbonate (Calcium Carbonate 750 Mg Tab.Chew) 750 mg PO Q4H PRN PRN Reason: Heartburn Clonidine HCl (Clonidine Hcl 0.1 Mg Tablet) 0.1 mg PO TID PRN; Protocol PRN Reason: Anxiety Cyclobenzaprine HCl (Cyclobenzaprine Hcl 10 Mg Tablet) 10 mg PO Q8H PRN PRN Reason: Muscle Spasm Last Admin: 01/27/25 13:17 Dose: 10 mg Piperacillin Sod/Tazobactam (Sod 4.5 gm/ Sodium Chloride) 100 mls @ 200 mls/hr IV Q6H LAKISHA Last Infusion: 01/27/25 13:47 Dose: Infused Vancomycin HCl 1,000 mg/ (Sodium Chloride) 270 mls @ 270 mls/hr IV Q12H LAKISHA Magnesium Hydroxide (Milk Of Magnesia 30 Ml Oral.Susp) 30 ml PO DAILY PRN PRN Reason: Constipation Melatonin (Melatonin 3 Mg Tablet) 6 mg PO BEDTIME PRN PRN Reason: Insomnia Morphine Sulfate (Morphine Sulfate 4 Mg/Ml Cartridge) 4 mg IVPUSH Q4H PRN; Protocol PRN Reason: Pain, Severe (Pain Scale 7-10) Last Admin: 01/27/25 13:17 Dose: 4 mg Ondansetron HCl (Ondansetron Hcl 4 Mg/2 Ml Vial) 4 mg IVPUSH Q8H PRN PRN Reason: Nausea and Vomiting Pantoprazole Sodium (Pantoprazole Sodium 40 Mg/10 Ml Vial) 40 mg IVPUSH BID@0630,1630 [facility] Pharmacy Consult (Consult Rx Vancomycin Dosing) 1 each MISCELLANE DAILY PRN PRN Reason: Consult order Sodium Chloride (0.9 % Sodium Chloride Flush 3 Ml Syringe) 3 ml IVFLUSH QSHIFT [facility] <MELBA Sena Last Filed: 01/27/25 16:00> Home medications: Home Medications ?Medication ?Instructions ?Recorded ?Confirmed ?Last Taken ?Type clonidine HCl 0.1 mg tablet 0.1 mg PO TID PRN anxiety 09/23/24 01/27/25 Unknown History ibuprofen 200 mg tablet 400 mg PO Q6H PRN Fever Or Pain 09/23/24 01/27/25 09/23/24 History methadone 10 mg/mL oral concentrate 85 mg PO DAILY 09/24/24 09/24/24 01/26/25 History cyclobenzaprine 10 mg tablet 10 mg PO Q8H PRN Muscle Spasm 01/27/25 01/27/25 Unknown History <MELBA Sena Last Filed: 01/27/25 16:00> Physical Exam Vital Signs: Vital Signs: Last Vital Signs Temp 99.9 F 01/27/25 14:31 Pulse 128 H 01/27/25 14:31 Resp 28 H 01/27/25 14:31 BP 145/76 H 01/27/25 14:31 Pulse Ox 97 01/27/25 14:31 O2 Del Method Room Air 01/27/25 14:31 BMI result Body Mass Index 43.0 <MELBA Sena Last Filed: 01/27/25 16:00> Const: Other: uncomfortable appearing <MELBA Sena Last Filed: 01/27/25 16:00> General: alert <MELBA Sena Last Filed: 01/27/25 16:00> Orientation/consciousness: patient oriented x3 <MELBA Sena Last Filed: 01/27/25 16:00> Resp: Effort & Inspection: normal respiratory effort and able to speak in complete sentences <MELBA Sena Last Filed: 01/27/25 16:00> GI: Other: corpulent abdomen diffuse tenderness but soft, no peritoneal signs <MELBA Sena Last Filed: 01/27/25 16:00> Inspection: No scar <MELBA Sena Last Filed: 01/27/25 16:00> Palpation (GI): no guarding and not rigid <MELBA Sena Last Filed: 01/27/25 16:00> Percussion: Yes normal to percussion <MELBA Sena Last Filed: 01/27/25 16:00> Skin: Other: flushed and diaphoretic <MELBA Sena Last Filed: 01/27/25 16:00> Neuro: General: patient oriented x3 and moves all extremities <MELBA Sena Last Filed: 01/27/25 16:00> Results Labs Result diagrams: 01/27/25 05:14 01/27/25 07:36 <MELBA Sena Last Filed: 01/27/25 16:00> Labs: Abnormal lab results 01/27/25 01/27/25 01/27/25 Range/Units 05:14 07:36 07:41 WBC 21.9 H (4.8-10.8) X10*3/uL MCHC 35.4 H (31.0-35.0) g/dl MPV 9.2 L (9.4-12.3) fL Immature Gran % (Auto) 0.8 H (0.0-0.4) % Neut % (Auto) 81.0 H (45-73) % Lymph % (Auto) 13.1 L (20-40) % Abs Immat Gran (auto) 0.18 H (0.00-0.03) X10*3/uL Absolute Neuts (auto) 17.7 H (2.0-8.3) x10*3/uL PT 15.1 H D (10.9-12.4) SEC INR 1.3 H (0.9-1.1) VBG HCO3 18 L (22-26) mmol/L Carbon Dioxide 15 L 18 L (22-29) mmol/L Anion Gap 30 H 21 H (12-20) Random Glucose 237 H 194 H (60-115) mg/dL Lactic Acid 12.0 H* (0.5-2.0) mmol/L Lactic Acid F/U @ 2Hr 5.8 H* (0.5-2.0) mmol/L Lactic Acid F/U @ 4Hr (0.5-2.0) mmol/L Calcium 8.1 L D (8.4-10.2) mg/dL Magnesium 1.5 L (1.6-2.6) mg/dL AST 119 H (5-31) U/L ALT 161 H (0-31) U/L Troponin I High Sens 420.7 H* D 508.6 H* (<3.5-17.0) ng/L C-Reactive Protein 1.03 H (< or = 0.50) mg/dL Total Protein 8.2 H (6.5-8.0) g/dL Ur Specific [place] (1.005-1.025) Urine Protein (Neg-Trace) mg/dL Urine Glucose (UA) (Negative) mg/dL Urine Opiates Screen (Not Detect) Urine Methadone Screen (Not Detect) ng/mL Urine Fentanyl Screen (Not Detect) 01/27/25 01/27/25 Range/Units 08:12 09:49 WBC (4.8-10.8) X10*3/uL MCHC (31.0-35.0) g/dl MPV (9.4-12.3) fL Immature Gran % (Auto) (0.0-0.4) % Neut % (Auto) (45-73) % Lymph % (Auto) (20-40) % Abs Immat Gran (auto) (0.00-0.03) X10*3/uL Absolute Neuts (auto) (2.0-8.3) x10*3/uL PT (10.9-12.4) SEC INR (0.9-1.1) VBG HCO3 (22-26) mmol/L Carbon Dioxide (22-29) mmol/L Anion Gap (12-20) Random Glucose (60-115) mg/dL Lactic Acid (0.5-2.0) mmol/L Lactic Acid F/U @ 2Hr (0.5-2.0) mmol/L Lactic Acid F/U @ 4Hr 3.0 H* (0.5-2.0) mmol/L Calcium (8.4-10.2) mg/dL Magnesium (1.6-2.6) mg/dL AST (5-31) U/L ALT (0-31) U/L Troponin I High Sens (<3.5-17.0) ng/L C-Reactive Protein (< or = 0.50) mg/dL Total Protein (6.5-8.0) g/dL Ur Specific [place] >= 1.030 H (1.005-1.025) Urine Protein 30 (1+) H (Neg-Trace) mg/dL Urine Glucose (UA) 100 H (Negative) mg/dL Urine Opiates Screen POSITIVE H (Not Detect) Urine Methadone Screen Positive H (Not Detect) ng/mL Urine Fentanyl Screen POSITIVE H (Not Detect) Short CBC 01/27/25 Range/Units 05:14 WBC 21.9 H (4.8-10.8) X10*3/uL Hgb 15.5 (12.0-16.0) g/dl Hct 43.8 (37.0-47.0) % Plt Count 362 D (160-400) X10*3/uL BMP 01/27/25 01/27/25 05:14 07:36 Sodium 142 143 Potassium 3.9 3.6 Chloride 101 108 Carbon Dioxide 15 L 18 L BUN 14 13 Creatinine 1.26 0.97 Calcium 9.5 8.1 L D Cardiac Enzymes 01/27/25 01/27/25 Range/Units 05:14 07:36 Total Creatine Kinase 83 87 (26-140) U/L Liver Function 01/27/25 Range/Units 05:14 Total Bilirubin 0.9 (0.0-1.0) mg/dL Direct Bilirubin 0.3 (0.0-0.5) mg/dL AST 119 H (5-31) U/L ALT 161 H (0-31) U/L Alkaline Phosphatase 81 (39-117) U/L Albumin 4.3 (3.5-5.0) g/dL Urine 01/27/25 Range/Units 08:12 Urine Color Yellow Urine Appearance Clear Urine pH 5.5 (5.0-9.0) Ur Specific [place] >= 1.030 H (1.005-1.025) Urine Protein 30 (1+) H (Neg-Trace) mg/dL Urine Glucose (UA) 100 H (Negative) mg/dL All other labs normal. <Quyen Stanford PA-C - Last Filed: 01/27/25 16:00> Imaging Abdomen CT scan report/results: report reviewed and image reviewed <Quyen Stanford PA-C Last Filed: 01/27/25 16:00> Assessment and Plan (1) Sepsis: Qualifiers: Sepsis type: sepsis due to unspecified organism Sepsis acute organ dysfunction status: unspecified Qualified Code(s): A41.9 - Sepsis, unspecified organism <Quyen Stanford PA-C Last Filed: 01/27/25 16:00> Status: Acute <MELBA Sena Last Filed: 01/27/25 16:00> (2) Abdominal pain with vomiting: Status: Acute <Quyen Stanford PA-C Last Filed: 01/27/25 16:00> 40-year-old female with PMH opiate use disorder, hepatitis-C untreated, anxiety, and depression presenting with acute onset of upper abdominal pain, nausea and vomiting, fevers with leukocytosis and lactic acidosis. CT scan abd/pelvis unrevealing of any intraabdominal pathology. Her abdomen is tender throughout but soft and no peritoneal signs. Lactic acidosis is improving with hydration. Uncertain of her etiology of pain but would recommend continuing supportive measures with IVF, broad spectrum IV abx and serial abdominal exams. May have to repeat the CT scan down the line if there is no improvement. Will continue to follow closely. Seen and examined with Dr. Maldonado. <Quyen Stanford PA-C - Last Filed: 01/27/25 16:00> 40-year-old female with PMH opiate use disorder, hepatitis-C untreated, anxiety, and depression presenting with acute onset of upper abdominal pain, nausea and vomiting, fevers with leukocytosis and lactic acidosis. CT scan abd/pelvis unrevealing of any intraabdominal pathology. Her abdomen is tender throughout but soft and no peritoneal signs. Lactic acidosis is improving with hydration. Uncertain of her etiology of pain but would recommend continuing supportive measures with IVF, broad spectrum IV abx and serial abdominal exams. May have to repeat the CT scan down the line if there is no improvement. Will continue to follow closely. Seen and examined with Dr. Maldonado. I agree with the above assessment and plan. No definite evidence of ischemic colitis by CT but abdominal exam is concerning for ischemia. Recommend IV hydration, continue antibiotics. Will continue to follow with you. <Vladimir Maldonado MD - Last Filed: 01/27/25 16:08> Procedures Date of Service Date of Service: 01/27/25 <Quyen Stanford PA-C - Last Filed: 01/27/25 16:00> 01/27/25 <Vladimir Maldonado MD - Last Filed: 01/27/25 16:08>
[2025-01-27] MEDS: 0.9 % Sodium Chloride Flush 3 ML SYRINGE IVFLUSH (16:43)
--- NOTE | 2025-01-27 19:24 | PC.NURSE ---
This RN just took over care. Second line placed by ultra sound by SANDEE Quesada pt resting in the recliner.
--- NOTE | 2025-01-27 19:44 | PC.NURSE ---
Medicated per mar, pt resting in recliner chair
--- NOTE | 2025-01-27 20:09 | PC.NURSE ---
pt medicated per mar and resting in recliner.
--- NOTE | 2025-01-27 22:21 | PC.NURSE ---
vitals at 20:17pm bp143/78 hr 124
[2025-01-27] MEDS: Lactated Ringers 1,000 ML 100 ML IVCONT (23:16)
[2025-01-28] VITALS (7 sets, daily range): BP systolic 162–196; BP diastolic 81–105; PULSE 91–109; RESP 16–20; TEMP 36.7–37.7; O2SAT 93–97
--- NOTE | 2025-01-28 | ECG_ITS ---
Test Reason : elevated trops Blood Pressure : */* mmHG Vent. Rate : 109 BPM Atrial Rate : 109 BPM P-R Int : 118 ms QRS Dur : 88 ms QT Int : 342 ms P-R-T Axes : 61 71 38 degrees QTcB Int : 460 ms Sinus tachycardia Otherwise normal ECG When compared with ECG of 27-Jan-2025 05:07, Nonspecific T wave abnormality now evident in Anterior leads Referred By: Deepali Munoz Electronically Signed By: RAGHU STERN MD
--- NOTE | 2025-01-28 00:09 | PM.EVENT ---
Event Note Date of Service: 01/28/25 Event Note: pt still having 10/10 diffuse abd pain. complaining of feeling feverish but rectal temp 99. nurse placed cooling packs for comfort. examined pt who was shaking and awake, complaining of 10/10 sharp abd pain with constant dull pain as well. bowels quiet. significant tenderness with mild palpation of the abd, even pain with auscultation. no guarding. abd soft. stat CT angio abd/pelvis - negative for ischemic bowel, mild gallbladder distension, no stranding, alk phos normal. LFTs elevated. HIDA scan ordered. repeat troponin and EKG due to elevated troponin earlier today - trop improved from 420 to 508 now 183. EKG with sinus tachycardia echo due to elevated troponin and cardiology consult continue dilaudid 1mg Q3H, yared pt is going through withdrawal at this time with the dilaudid. add dicyclomine 10mg TID for abd cramping. case discussed with Dr Mueller Time Spent With Patient Time: Total time managing care of this patient today ____ minutes.
[2025-01-28] MEDS: iohexoL 350 MG/ML 100 ML INFUS..BTL 80 ML IV (00:52)
[2025-01-28 00:59] LABS: Troponin-I High Sensitivity 183.6 ng/L (<3.5-17.0)
[2025-01-28] MEDS: 0.9 % Sodium Chloride Flush 3 ML SYRINGE IVFLUSH ×3 (01:24→17:00)
[2025-01-28 03:26] LABS: Glucose, Whole Blood 153 mg/dL (60-115)
--- NOTE | 2025-01-28 05:19 | PC.NURSE ---
Pt c/o seeing white spots when opening eyes. This was about 1 hr after receiving IV Dilaudid and patient being repositioned to be cleaned. Patient also had bilious vomit. SANDEE Palumbo notified and to bedside. HIDA scan ordered along with Leila.
[2025-01-28 06:51] LABS: Hematocrit 38.0 % (37.0-47.0); Hemoglobin 13.2 g/dl (12.0-16.0); Mean Corpuscular HGB Conc 34.7 g/dl (31.0-35.0); Mean Corpuscular Hemoglobin 28.2 pg (27.0-33.0); Mean Corpuscular Volume 81.2 fL (80.0-98.0); NRBC Abs Auto 0.000 X10*3/uL (0.0-0.012); NRBC Pct Auto 0.0 /100WBC (0.0-0.2); Platelet Count 212 X10*3/uL (160-400); Red Blood Count 4.68 X10*6/uL (4.20-5.50); White Blood Count 13.3 X10*3/uL (4.8-10.8)
--- NOTE | 2025-01-28 07:00 | CA_ITS ---
Transthoracic Echocardiogram Patient (Last, First, Middle): Kimberly White, Gender: Female Date of : 1985 Age: 40 Procedure Date: 01/28/2025 Procedure Type: Transthoracic Echocardiogram Location: [facility] [place] Height: 172.72 cm Weight: 135.63 kg BSA: 2.42 m2 Heart Rate: bpm BP: 174 / 87 mmHg Bolt Loader: TAMIA Referring MD: Deepali Munoz PA-C Clarity Specialists: Marcos William MD Symptoms: elevated troponin Study Quality: Adequate w contrast ECG Rhythm: Sinus Conclusions: - 1. Normal LV ejection fraction of 65-70% 2. No clear evidence of vegetation on this study with normal cardiac valvular Dopplers Findings Procedure Information Contrast agent, definity, is being given per protocol without apparent complications. Left Ventricle Normal left ventricular size, thickness, and systolic function. The visually estimated ejection fraction is between 65-70%. Spectral Doppler is indicative of a normal filling pattern. Right Ventricle Normal right ventricular cavity size. There is normal right ventricular systolic function. Atria The left atrium is normal in size. Interatrial shunt cannot be excluded. The right atrium was not well visualized. Aortic Valve The aortic valve structure and function is likely normal. There is no aortic valve stenosis. There is no aortic valve regurgitation. Mitral Valve Likely normal mitral valve structure and function. There is no mitral valve regurgitation. There is no mitral valve stenosis. Pulmonic Valve The pulmonic valve was not well visualized. Tricuspid Valve Likely normal tricuspid valve structure and function. Tricuspid regurgitation envelope is inadequate for calculation of right ventricular systolic pressure. Indeterminate right atrial pressure. Great Vessels The aorta was not well visualized. The pulmonary artery was not well visualized. Venous The inferior vena cava is normal in size. Pericardium/Pleural The pericardium was not well visualized. Prior Study Comparison Changes noted compared to prior study dated: 09/23/2024. LV systolic function has a normal range Measurements 2D Linear Measurements IVSd: 1.00 0.6-0.9/0.6-1.0 cm LVIDd: 5.33 3.9-5.3/4.2-5.9 cm LVIDd Index: 2.20 2.4-3.2/2.2-3.1 cm/m2 LVIDs: 2.92 2.0-3.6 cm LVPWd: 0.95 0.7-1.1 cm Ao Root: 3.60 2.1-3.5 cm LA Diam: 3.50 2.7-3.8/3.0-4.0 cm LAIDs Index: 1.45 1.5-2.3 cm/m2 LV Mass: 244.28 67-162/88-224 g LV Mass Index: 100.94 43-95/49-115 g/m2 LVOT Diam: 2.10 3.0+(-)1.3 cm 2D Systolic Function EF 4C: 71.80 >55% EF 2C: 56.80 >55% EF BiP: 66.70 >55% Mitral Valve MV Pk E: 1.12 MV PK A: 0.90 MV Decel Time: 156.00 E/A: 1.30 E'Lateral: 12.50 E'Medial: 9.03 E/E' Med: 12.40 E/E' Lat: 9.00 PHT: 46.00 MVA PHT: 4.78 Decel [place]: 7.18 Aortic Valve AoV Pk Flavio: 1.65 AoV Mn Flavio: 1.06 AoV VTI: 0.33 AoV Pk Grad: 11.00 Aov Mn Grad: 5.00 TAMIR Cont.VTI: 2.74 LVOT LVOT Pk Flavio: 1.25 LVOT Mn Flavio: 0.77 LVOT VTI: 0.26 LVOT Pk Grad: 6.00 LVOT Mn Grad: 3.00 LVOT Diam: 2.10 LVOT Area: 3.46 Diastolic Function MV Pk E: 1.12 MV Pk A: 0.90 E/A: 1.30 E'Medial: 9.03 E/E' Med: 12.40 E' Laterial: 12.50 E/E' Lat: 9.00 Great Vessels Aorta Ao Root-2D: 3.60 2.0-3.7 cm Ao Asc: 3.30 2.1-3.4 cm Pulmonary Valve PV Pk Flavio: 1.13 Peak PV Grad: 5.00 Updated in Other Vendor System with Status of Final Marcos William MD electronically signed on 01/29/2025 10:49:37 AM with status of Final
[2025-01-28 07:07] LABS: Alanine Aminotransferase 90 U/L (0-31); Albumin Level 3.5 g/dL (3.5-5.0); Alkaline Phosphatase 48 U/L (39-117); Anion Gap 16 (12-20); Aspartate Amino Transferase 61 U/L (5-31); Blood Urea Nitrogen 11 mg/dL (9-16); Calcium 8.3 mg/dL (8.4-10.2); Carbon Dioxide 21 mmol/L (22-29); Chloride 110 mmol/L (96-108); Creatinine Clr Calc Pharmacy 154.2; Estimated Glomerular Filt Rate > 60; Potassium 3.9 mmol/L (3.3-5.1); Sodium 143 mmol/L (135-145); Total Protein 6.5 g/dL (6.5-8.0)
[2025-01-28 07:16] LABS: Troponin-I High Sensitivity 160.5 ng/L (<3.5-17.0)
--- NOTE | 2025-01-28 09:00 | P.PNGS_ITS ---
Subjective Subjective Date of Service: 01/28/25 <Quyen Stanford PA-C - Last Filed: 01/28/25 09:08> 01/28/25 <Vladimir Maldonado MD - Last Filed: 01/28/25 12:30> Interval history: Continues to c/o abdominal pain this morning. Reports no improvement. Remains nauseous. No flatus or BM. Last BM Monday and was normal. <Quyen Stanford PA-C - Last Filed: 01/28/25 09:08> Physical Exam 2 Vital Signs: Vital Signs: Last Vital Signs Temp 98.7 F 01/28/25 08:00 Pulse 104 H 01/28/25 08:00 Resp 18 01/28/25 08:00 BP 196/88 H 01/28/25 08:00 Pulse Ox 97 01/28/25 08:00 O2 Del Method Room Air 01/28/25 08:00 BMI result Body Mass Index 45.6 <Quyen Stanford PA-C - Last Filed: 01/28/25 09:08> Const: Other: uncomfortable appearing <Quyen Stanford PA-C - Last Filed: 01/28/25 09:08> General: alert and tired appearing <MELBA Sena Last Filed: 01/28/25 09:08> Orientation/consciousness: patient oriented x3 <MELBA Sena Last Filed: 01/28/25 09:08> Resp: Effort & Inspection: normal respiratory effort, able to speak in complete sentences and not tachypneic <Quyen Stanford PA-C - Last Filed: 01/28/25 09:08> GI: Inspection: No distended <MEBLA Sena Last Filed: 01/28/25 09:08> Palpation (GI): Soft to palpation, Tenderness to palpation present (GI) (diffuse ), no guarding and not rigid <MELBA Sena Last Filed: 01/28/25 09:08> Percussion: Yes normal to percussion <MELBA Sena Last Filed: 01/28/25 09:08> Skin: Other: continued facial flushing <Quyen Stanford PA-C - Last Filed: 01/28/25 09:08> Neuro: General: patient oriented x3 and moves all extremities <Quyen Stanford PA-C - Last Filed: 01/28/25 09:08> Objective Data Active Medications Acetaminophen (Acetaminophen 325 Mg Tablet) 650 mg PO Q6H PRN PRN Reason: Pain, Mild 1-3,fever,headache Calcium Carbonate (Calcium Carbonate 750 Mg Tab.Chew) 750 mg PO Q4H PRN PRN Reason: Heartburn Clonidine HCl (Clonidine Hcl 0.1 Mg Tablet) 0.1 mg PO TID PRN; Protocol PRN Reason: Anxiety Last Admin: 01/27/25 20:06 Dose: 0.1 mg Documented By: KAIT Cyclobenzaprine HCl (Cyclobenzaprine Hcl 10 Mg Tablet) 10 mg PO Q8H PRN PRN Reason: Muscle Spasm Last Admin: 01/27/25 13:17 Dose: 10 mg Documented By: CARMEN Dicyclomine HCl (Dicyclomine Hcl 10 Mg Capsule) 10 mg PO TIDAC PRN PRN Reason: abdominal pain Hydromorphone HCl (Hydromorphone Hcl 1 Mg/Ml Syringe) 1 mg IVPUSH Q3H PRN; Protocol PRN Reason: Pain, Severe (Pain Scale 7-10) Last Admin: 01/28/25 08:12 Dose: 1 mg Documented By: ADY Piperacillin Sod/Tazobactam (Sod 4.5 gm/ Sodium Chloride) 100 mls @ 200 mls/hr IV Q6H [facility] Last Infusion: 01/28/25 07:30 Dose: Infused Documented By: MATTHEW Vancomycin HCl 1,000 mg/ (Sodium Chloride) 270 mls @ 270 mls/hr IV Q12H [facility] Last Infusion: 01/28/25 06:20 Dose: Infused Documented By: JONES Lactated Ringer's (Lr) 1,000 mls @ 100 mls/hr IVCONT .Q10H [facility] Last Admin: 01/27/25 23:16 Dose: 100 mls/hr Documented By: JONES Magnesium Hydroxide (Milk Of Magnesia 30 Ml Oral.Susp) 30 ml PO DAILY PRN PRN Reason: Constipation Melatonin (Melatonin 3 Mg Tablet) 6 mg PO BEDTIME PRN PRN Reason: Insomnia Last Admin: 01/27/25 22:30 Dose: 6 mg Documented By: JONES Ondansetron HCl (Ondansetron Hcl 4 Mg/2 Ml Vial) 4 mg IVPUSH Q8H PRN PRN Reason: Nausea and Vomiting Last Admin: 01/28/25 06:51 Dose: 4 mg Documented By: JONES Pantoprazole Sodium (Pantoprazole Sodium 40 Mg/10 Ml Vial) 40 mg IVPUSH BID@0630,1630 [facility] Last Admin: 01/28/25 05:12 Dose: 40 mg Documented By: JONES Pharmacy Consult (Consult Rx Vancomycin Dosing) 1 each MISCELLANE DAILY PRN PRN Reason: Consult order Sodium Chloride (0.9 % Sodium Chloride Flush 3 Ml Syringe) 3 ml IVFLUSH QSHIFT [facility] Last Admin: 01/28/25 08:11 Dose: 3 ml Documented By: ADY <Quyen Stanford PA-C - Last Filed: 01/28/25 09:08> Labs CBC & Chem 7: 01/28/25 06:38 01/28/25 06:38 <Quyen Stanford PA-C - Last Filed: 01/28/25 09:08> Labs: Laboratory Results - last 24 hr 01/27/25 01/27/25 01/27/25 07:36 08:12 09:49 MCV MCH MCHC RDW Plt Count MPV Absolute Nucleated RBC Nucleated RBC % (auto) Anion Gap Estim Creat Clear Calc Estimated GFR POC Glucose Random Glucose Lactic Acid F/U @ 4Hr 3.0 H* Calcium Total Bilirubin AST ALT Alkaline Phosphatase Troponin I High Sens 508.6 H* Total Protein Albumin TSH 0.74 Respiratory Panel [place] Adenovirus (Rapid PCR) B.pert (TEM-PCR) B.parapertussis DNA PCR C. pneumoniae DNA (PCR) Coronavirus OC43 (PCR) Coronavirus HKU1 (PCR) Coronavirus 229E (PCR) Coronavirus NL63 (PCR) Human Metapneumovir PCR Influenza A (RT-PCR) Influenza A (H1) PCR Influ A (H1/09) PCR Influenza A (H3) PCR Influenza Type A (PCR) NEGATIVE Influenza B (RT-PCR) Influenza Type B (PCR) NEGATIVE M. pneumoniae (PCR) Parainfluenza 1 (PCR) Parainfluenza 2 (PCR) Parainfluenza 3 (PCR) Parainfluenza 4 (PCR) RSV (PCR) RSV RNA Qual (PCR) NEGATIVE Entero/Rhino (PCR) SARS-CoV-2 RNA (RT-PCR) NEGATIVE 01/27/25 01/28/25 01/28/25 11:58 00:27 03:22 MCV MCH MCHC RDW Plt Count MPV Absolute Nucleated RBC Nucleated RBC % (auto) Anion Gap Estim Creat Clear Calc Estimated GFR POC Glucose 153 H Random Glucose Lactic Acid F/U @ 4Hr Calcium Total Bilirubin AST ALT Alkaline Phosphatase Troponin I High Sens 183.6 H* D Total Protein Albumin TSH Respiratory Panel [place] See Note Adenovirus (Rapid PCR) Not Detected B.pert (TEM-PCR) Not Detected B.parapertussis DNA PCR Not Detected C. pneumoniae DNA (PCR) Not Detected Coronavirus OC43 (PCR) Not Detected Coronavirus HKU1 (PCR) Not Detected Coronavirus 229E (PCR) Not Detected Coronavirus NL63 (PCR) Not Detected Human Metapneumovir PCR Not Detected Influenza A (RT-PCR) Not Detected Influenza A (H1) PCR Not Detected Influ A (H1/09) PCR Not Detected Influenza A (H3) PCR Not Detected Influenza Type A (PCR) Influenza B (RT-PCR) Not Detected Influenza Type B (PCR) M. pneumoniae (PCR) Not Detected Parainfluenza 1 (PCR) Not Detected Parainfluenza 2 (PCR) Not Detected Parainfluenza 3 (PCR) Not Detected Parainfluenza 4 (PCR) Not Detected RSV (PCR) Not Detected RSV RNA Qual (PCR) Entero/Rhino (PCR) Not Detected SARS-CoV-2 RNA (RT-PCR) Not Detected 01/28/25 06:38 MCV 81.2 MCH 28.2 MCHC 34.7 RDW 13.8 Plt Count 212 D MPV 8.9 L Absolute Nucleated RBC 0.000 Nucleated RBC % (auto) 0.0 Anion Gap 16 Estim Creat Clear Calc 154.2 Estimated GFR > 60 POC Glucose Random Glucose 156 H Lactic Acid F/U @ 4Hr Calcium 8.3 L Total Bilirubin 1.1 H AST 61 H ALT 90 H Alkaline Phosphatase 48 Troponin I High Sens 160.5 H* Total Protein 6.5 Albumin 3.5 TSH Respiratory Panel [place] Adenovirus (Rapid PCR) B.pert (TEM-PCR) B.parapertussis DNA PCR C. pneumoniae DNA (PCR) Coronavirus OC43 (PCR) Coronavirus HKU1 (PCR) Coronavirus 229E (PCR) Coronavirus NL63 (PCR) Human Metapneumovir PCR Influenza A (RT-PCR) Influenza A (H1) PCR Influ A (H1/09) PCR Influenza A (H3) PCR Influenza Type A (PCR) Influenza B (RT-PCR) Influenza Type B (PCR) M. pneumoniae (PCR) Parainfluenza 1 (PCR) Parainfluenza 2 (PCR) Parainfluenza 3 (PCR) Parainfluenza 4 (PCR) RSV (PCR) RSV RNA Qual (PCR) Entero/Rhino (PCR) SARS-CoV-2 RNA (RT-PCR) <Quyen Stanford PA-C - Last Filed: 01/28/25 09:08> Microbiology Microbiology Results: Microbiology 01/27/25 05:25 Blood Culture - Preliminary Blood - Venous No growth after 24 hours. 01/27/25 05:14 Blood Culture - Preliminary Blood - Venous No growth after 24 hours. <Quyen Stanford PA-C - Last Filed: 01/28/25 09:08> Procedures Date of Service Date of Service: 01/28/25 <Quyen Stanford PA-C - Last Filed: 01/28/25 09:08> 01/28/25 <Vladimir Maldonado MD - Last Filed: 01/28/25 12:30> Progress Note: A&P Assessment and plan (1) Abdominal pain with vomiting: Status: Acute <Quyen Stanford PA-C - Last Filed: 01/28/25 09:08> Assessment and Plan: 40 year old female admitted with upper abdominal pain, nausea/vomiting, fever for 3 days with leukocytosis, lactic acidosis however abdominal imaging unrevealing of any pathology. WBC count markedly improved this morning. Lactic acid improved with hydration. CTA abd yesterday showed no mesenteric ischemia. She however continues to c/o unchanged abd pain. Gallbladder distended on imaging however this may be due to reduced oral intake. HIDA scan ordered by hospitalists overnight. Await results. Abd is soft- remains diffusely tender but improved, no peritoneal signs. Will continue to follow. Continue supportive measures for now. <Quyen Stanford PA-C - Last Filed: 01/28/25 09:08> Time Spent With Patient Time: Total time managing care of this patient today ____ minutes. <Quyen Stanford PA-C - Last Filed: 01/28/25 09:08> Quality Stroke Does the patient have a stroke diagnosis?: No <Quyen Stanford PA-C - Last Filed: 01/28/25 09:08> VTE Prior VTE?: No <Quyen Stanford PA-C - Last Filed: 01/28/25 09:08> VTE Risk Level:: Medical - moderate - high <Quyen Stanford PA-C - Last Filed: 01/28/25 09:08> VTE Device Contraindication: Treatment Not Indicated <Quyen Stanford PA-C - Last Filed: 01/28/25 09:08> VTE Drug Contraindication: N/A - Med Ordered <Quyen Stanford PA-C - Last Filed: 01/28/25 09:08>
--- NOTE | 2025-01-28 09:42 | MHC.CM.PN ---
Addendum entered by Ara Staton 01/28/25 10:59: Pt goes to [facility] [address], [facility] for Methadone. Original Note: IMM 01/28/25, Pt lives with her children, she does not have a PCP, brochure given. HCP discussed, she declined to complete form. She does not use home health services or DME. She will need assistance with transport home at [place]. DCP: home, self care. CM to follow for DC needs.
--- NOTE | 2025-01-28 11:07 | PM.CNCAR ---
History of Present Illness History of Present Illness Date of Service: 01/28/25 Requesting physician: [facility] Consult reason: troponin elevation and other (Sinus tachycardia) Chief complaint: SIRS, elevated trops Narrative: I was consulted to see Kimberly in cardiology consultation today because of minimally elevated troponin as well as persistent sinus tachycardia. Patient is 40-year-old female with prior use of drugs and currently on methadone but still using fentanyl. Patient came to the hospital with chills and fever at home. Patient was persists with tachycardia with heart rate up to 116 sinus tachycardia. Patient had troponins drawn which were minimally elevated but flat. Patient denies any chest pain. Says her main issue currently is constant chills and shivering. Marcia's febrile yesterday but does not appear to be febrile this morning and temperature is controlled. She also has significant lactic acidosis as well as elevation of liver enzymes. Overall findings consistent with systemic inflammatory reaction syndrome with possible cardiac involvement. Patient is in distress and complains of pain generalized. She is currently getting pain medications. She denies any palpitations. Denies any lightheadedness. No shortness of breath, orthopnea, PND. Her blood culture preliminary 24 hours is negative. She vehemently denies any IV drug use Review of Systems Constitutional: Constitutional: Reports body ache(s), Reports chills, Reports fever(s) and Reports malaise Eyes: Eyes: Reports no additional eye complaints Cardiovascular: Cardiovascular: Reports no additional cardiovascular complaints Respiratory: Respiratory: Reports no additional respiratory complaints Gastrointestinal: Gastrointestinal: Reports no additional gastrointestinal complaints Genitourinary: Genitourinary: Reports no additional female genitourinary complaints Musculoskeletal: Musculoskeletal: Reports no additional musculoskeletal complaints Neurologic: Reports system reviewed and no additional complaints, except as documented Psychiatric: Psychiatric: Reports anxiety [facility] Past Medical History Medical History Opioid use disorder Nausea Back pain Anxiety Hyperlipidemia Depression GERD (gastroesophageal reflux disease) Morbid obesity Knee pain, bilateral Back problem High cholesterol Family History Family History Mother Lung collapse Father Diabetes Heart attack Depression PTSD (post-traumatic stress disorder) Sister No problems noted. Sister No problems noted. Son No problems noted. Son No problems noted. Social History Social History Household Members: Children Household Members Other:: kids 8 and 10 Housing: Apartment Do you presently have visiting nurse or other home services: No Alcohol intake: never Patient Tobacco Use Status: Never used Tobacco Cigarettes Per Day: 2 service: No Meds Allergies Allergy/AdvReac Type Severity Reaction Status Date / Time No Known Allergies (No Known Allergy Verified 01/27/25 05:04 Allergies*) Active Medications: Current Medications Acetaminophen (Acetaminophen 325 Mg Tablet) 650 mg PO Q6H PRN PRN Reason: Pain, Mild 1-3,fever,headache Calcium Carbonate (Calcium Carbonate 750 Mg Tab.Chew) 750 mg PO Q4H PRN PRN Reason: Heartburn Clonidine HCl (Clonidine Hcl 0.1 Mg Tablet) 0.1 mg PO TID PRN; Protocol PRN Reason: Anxiety Last Admin: 01/27/25 20:06 Dose: 0.1 mg Cyclobenzaprine HCl (Cyclobenzaprine Hcl 10 Mg Tablet) 10 mg PO Q8H PRN PRN Reason: Muscle Spasm Last Admin: 01/27/25 13:17 Dose: 10 mg Dicyclomine HCl (Dicyclomine Hcl 10 Mg Capsule) 10 mg PO TIDAC PRN PRN Reason: abdominal pain Hydromorphone HCl (Hydromorphone Hcl 1 Mg/Ml Syringe) 1 mg IVPUSH Q3H PRN; Protocol PRN Reason: Pain, Severe (Pain Scale 7-10) Last Admin: 01/28/25 08:12 Dose: 1 mg Piperacillin Sod/Tazobactam (Sod 4.5 gm/ Sodium Chloride) 100 mls @ 200 mls/hr IV Q6H [facility] Last Infusion: 01/28/25 07:30 Dose: Infused Vancomycin HCl 1,000 mg/ (Sodium Chloride) 270 mls @ 270 mls/hr IV Q12H [facility] Last Infusion: 01/28/25 06:20 Dose: Infused Lactated Ringer's (Lr) 1,000 mls @ 100 mls/hr IVCONT .Q10H [facility] Last Admin: 01/27/25 23:16 Dose: 100 mls/hr Lorazepam (Lorazepam 1 Mg Tablet) 1 mg PO Q6H PRN PRN Reason: anxiety/restlessness Magnesium Hydroxide (Milk Of Magnesia 30 Ml Oral.Susp) 30 ml PO DAILY PRN PRN Reason: Constipation Melatonin (Melatonin 3 Mg Tablet) 6 mg PO BEDTIME PRN PRN Reason: Insomnia Last Admin: 01/27/25 22:30 Dose: 6 mg Ondansetron HCl (Ondansetron Hcl 4 Mg/2 Ml Vial) 4 mg IVPUSH Q8H PRN PRN Reason: Nausea and Vomiting Last Admin: 01/28/25 06:51 Dose: 4 mg Pantoprazole Sodium (Pantoprazole Sodium 40 Mg/10 Ml Vial) 40 mg IVPUSH BID@0630,1630 [facility] Last Admin: 01/28/25 05:12 Dose: 40 mg Pharmacy Consult (Consult Rx Vancomycin Dosing) 1 each MISCELLANE DAILY PRN PRN Reason: Consult order Sodium Chloride (0.9 % Sodium Chloride Flush 3 Ml Syringe) 3 ml IVFLUSH QSHIFT [facility] Last Admin: 01/28/25 08:11 Dose: 3 ml Home Medications ?Medication ?Instructions ?Recorded ?Confirmed ?Last Taken ?Type clonidine HCl 0.1 mg tablet 0.1 mg PO TID PRN anxiety 09/23/24 01/27/25 Unknown History ibuprofen 200 mg tablet 400 mg PO Q6H PRN Fever Or Pain 09/23/24 01/27/25 09/23/24 History methadone 10 mg/mL oral concentrate 85 mg PO DAILY 09/24/24 09/24/24 01/26/25 History cyclobenzaprine 10 mg tablet 10 mg PO Q8H PRN Muscle Spasm 01/27/25 01/27/25 Unknown History Physical Exam Vital Signs: Vital Signs: Last Vital Signs Temp 98.7 F 01/28/25 08:00 Pulse 104 H 01/28/25 08:00 Resp 18 01/28/25 08:00 BP 196/88 H 01/28/25 08:00 Pulse Ox 97 01/28/25 08:00 O2 Del Method Room Air 01/28/25 08:00 BMI result Body Mass Index 45.6 Const: General: cooperative, no acute distress, alert, awake, anxious and other (Diaphoretic) Nutritional Appearance: obese Orientation/consciousness: patient oriented x3 HEENT: Head: Yes normocephalic and Yes atraumatic Neck: Neck: Yes trachea midline, Yes supple and Yes no JVD Resp: Effort & Inspection: decreased respiratory effort Auscultation: clear to auscultation bilaterally Cardio: Jugular venous distension: no JVD Rate: tachycardic Rhythm: regular rhythm Heart sounds: S1 normal heart sound present, S2 normal heart sound present, no click, no gallops and no murmurs GI: Auscultation: normal bowel sounds Skin: General skin exam: no rashes or lesions noted Neuro: General: patient oriented x3 and no focal motor deficits Extrem: General: Yes no clubbing, cyanosis or edema Psych: Appearance: grossly normal Objective Labs and Meds 01/28/25 06:38 01/28/25 06:38 Lab results: Laboratory Results - last 24 hr 01/27/25 01/28/25 01/28/25 11:58 00:27 03:22 WBC RBC Hgb Hct MCV MCH MCHC RDW Plt Count MPV Absolute Nucleated RBC Nucleated RBC % (auto) Sodium Potassium Chloride Carbon Dioxide Anion Gap BUN Creatinine Estim Creat Clear Calc Estimated GFR POC Glucose 153 H Random Glucose Calcium Total Bilirubin AST ALT Alkaline Phosphatase Troponin I High Sens 183.6 H* D Total Protein Albumin Respiratory Panel [place] See Note Adenovirus (Rapid PCR) Not Detected B.pert (TEM-PCR) Not Detected B.parapertussis DNA PCR Not Detected C. pneumoniae DNA (PCR) Not Detected Coronavirus OC43 (PCR) Not Detected Coronavirus HKU1 (PCR) Not Detected Coronavirus 229E (PCR) Not Detected Coronavirus NL63 (PCR) Not Detected Human Metapneumovir PCR Not Detected Influenza A (RT-PCR) Not Detected Influenza A (H1) PCR Not Detected Influ A (H1/09) PCR Not Detected Influenza A (H3) PCR Not Detected Influenza B (RT-PCR) Not Detected M. pneumoniae (PCR) Not Detected Parainfluenza 1 (PCR) Not Detected Parainfluenza 2 (PCR) Not Detected Parainfluenza 3 (PCR) Not Detected Parainfluenza 4 (PCR) Not Detected RSV (PCR) Not Detected Entero/Rhino (PCR) Not Detected SARS-CoV-2 RNA (RT-PCR) Not Detected 01/28/25 06:38 WBC 13.3 H RBC 4.68 Hgb 13.2 Hct 38.0 MCV 81.2 MCH 28.2 MCHC 34.7 RDW 13.8 Plt Count 212 D MPV 8.9 L Absolute Nucleated RBC 0.000 Nucleated RBC % (auto) 0.0 Sodium 143 Potassium 3.9 Chloride 110 H Carbon Dioxide 21 L Anion Gap 16 BUN 11 Creatinine 0.71 Estim Creat Clear Calc 154.2 Estimated GFR > 60 POC Glucose Random Glucose 156 H Calcium 8.3 L Total Bilirubin 1.1 H AST 61 H ALT 90 H Alkaline Phosphatase 48 Troponin I High Sens 160.5 H* Total Protein 6.5 Albumin 3.5 Respiratory Panel [place] Adenovirus (Rapid PCR) B.pert (TEM-PCR) B.parapertussis DNA PCR C. pneumoniae DNA (PCR) Coronavirus OC43 (PCR) Coronavirus HKU1 (PCR) Coronavirus 229E (PCR) Coronavirus NL63 (PCR) Human Metapneumovir PCR Influenza A (RT-PCR) Influenza A (H1) PCR Influ A (H1/09) PCR Influenza A (H3) PCR Influenza B (RT-PCR) M. pneumoniae (PCR) Parainfluenza 1 (PCR) Parainfluenza 2 (PCR) Parainfluenza 3 (PCR) Parainfluenza 4 (PCR) RSV (PCR) Entero/Rhino (PCR) SARS-CoV-2 RNA (RT-PCR) EKG shows sinus tachycardia without acute ST T wave changes Assessment and Plan (1) Elevated troponin: Status: Acute Elevated troponin says setting of systemic inflammatory reaction syndrome and most likely related to the same with myocardial involvement. Unlikely to be myocarditis. Unlikely to be acute coronary syndrome. No indication for anticoagulation. Can obtain an echocardiogram to evaluate for any possible intracardiac source of infection. Although she denies any use of IV drugs. Continue supportive care. (2) Sinus tachycardia: Status: Acute Sinus tachycardia most likely related to acute systemic inflammatory reaction syndrome most likely related to infectious etiology of unclear origin. Fevers of unclear origin. Continue supportive care. Her blood pressure is significantly elevated and may benefit from labetalol therapy to reduce both heart rate. Continue treatment of anxiety and pain. Could also represent related to withdrawal syndrome. From cardiac perspective no further workup is indicated besides echocardiogram. Will sign of the case. Thank you for allowing me to partake in her care Procedures Date of Service Date of Service: 01/28/25
--- NOTE | 2025-01-28 11:25 | HO.ADDICTCON ---
History of Present Illness Date of Service: 01/28/2025 Chief Complaint: SIRS, elevated trops Reason for Consult: OUD Sources of Information: patient interviewed and chart reviewed HPI Narrative: Patient is a 40 year old female who presented to [facility] reporting n/v In ED she was tachycardia with HR in 160s. Lactic acid 12, elevated troponins, and white count--subsequently admitted. Consult requested to due OUD and methadone dosing Patient seen in room 469. She is awake, alert, appearing very uncomfortable, shaking (which she says is much improved) Denies withdrawal sx. Last methadone dose Monday --unable to tolerate Monday and Monday d/t vomiting. Reports recent fentanyl use. Unclear amount Labs showing elevated liver functions (down from admission) and troponins today (also down from admission) Review of Systems Constitutional: Reports as per HPI, Reports body ache(s), Reports excessive sweating and Reports malaise Gastrointestinal: Reports nausea and Reports vomiting Endocrine: Reports excessive sweating Diagnostics Vital Signs (24Hr): Vital Signs - 24 hr 01/27/25 12:02 01/27/25 14:31 01/27/25 16:41 Temperature 100.4 F 99.9 F 99.9 F Pulse Rate 142 H 128 H Respiratory Rate 20 28 H Blood Pressure 144/66 H 145/76 H Pulse Oximetry 97 97 Oxygen Delivery Method Room Air Room Air 01/27/25 16:48 01/27/25 20:06 01/27/25 20:15 Temperature 99.9 F 99.7 F Pulse Rate 128 H 122 H Respiratory Rate 22 H 20 Blood Pressure 141/81 H 141/81 H 143/78 H Pulse Oximetry 97 97 Oxygen Delivery Method Room Air Room Air 01/27/25 22:14 01/28/25 04:00 01/28/25 08:00 Temperature 98 F 100 F 98.7 F Pulse Rate 111 H 100 104 H Respiratory Rate 18 18 18 Blood Pressure 132/75 164/87 H 196/88 H Pulse Oximetry 97 96 97 Oxygen Delivery Method Room Air Room Air Room Air BMI result Body Mass Index 45.6 Labs 01/28/25 06:38 01/28/25 06:38 Labs: Laboratory Results - last 48 hr 01/27/25 01/27/25 01/27/25 05:14 05:14 07:36 WBC 21.9 H RBC 5.45 Hgb 15.5 Hct 43.8 MCV 80.4 MCH 28.4 MCHC 35.4 H RDW 13.2 Plt Count 362 D MPV 9.2 L Immature Gran % (Auto) 0.8 H Neut % (Auto) 81.0 H Lymph % (Auto) 13.1 L [place] % (Auto) 4.8 Eos % (Auto) 0.0 Baso % (Auto) 0.3 Lymph # (Auto) 2.9 [place] # (Auto) 1.1 Eos # (Auto) 0.0 Baso # (Auto) 0.1 Abs Immat Gran (auto) 0.18 H Absolute Neuts (auto) 17.7 H Absolute Nucleated RBC 0.000 Nucleated RBC % (auto) 0.0 PT 15.1 H D INR 1.3 H VBG pH VBG pCO2 VBG pO2 VBG HCO3 VBG O2 Saturation VBG Base Excess Sodium 142 143 Potassium 3.9 3.6 Chloride 101 108 Carbon Dioxide 15 L 18 L Anion Gap 30 H 21 H BUN 14 13 Creatinine 1.26 0.97 Estim Creat Clear Calc 83.9 109.1 Estimated GFR 47 > 60 POC Glucose Random Glucose 237 H 194 H Lactic Acid 12.0 H* Lactic Acid F/U @ 2Hr 5.8 H* Lactic Acid F/U @ 4Hr Calcium 9.5 8.1 L D Magnesium 1.5 L Cancelled Total Bilirubin 0.9 Direct Bilirubin 0.3 AST 119 H ALT 161 H Alkaline Phosphatase 81 Total Creatine Kinase 83 87 Troponin I High Sens 420.7 H* D 508.6 H* C-Reactive Protein 1.03 H Total Protein 8.2 H Albumin 4.3 Lipase 11 TSH 0.74 Beta HCG, Quant < 2 Urine Color Urine Appearance Urine pH Ur Specific [place] Urine Protein Urine Glucose (UA) Urine Ketones Urine Blood Urine Nitrite Ur Leukocyte Esterase Urine RBC Urine WBC Ur Squamous Epith Cells Urine Bacteria Hyaline Casts Urine Opiates Screen Ur Buprenorphine Scrn Ur Oxycodone Screen Urine Methadone Screen Urine Fentanyl Screen Ur Barbiturates Screen Ur Phencyclidine Scrn Ur Amphetamines Screen U Benzodiazepines Scrn Urine Cocaine Screen U Marijuana (THC) Screen Ethyl Alcohol < 10 Respiratory Panel [place] Adenovirus (Rapid PCR) B.pert (TEM-PCR) B.parapertussis DNA PCR C. pneumoniae DNA (PCR) Coronavirus OC43 (PCR) Coronavirus HKU1 (PCR) Coronavirus 229E (PCR) Coronavirus NL63 (PCR) Human Metapneumovir PCR Influenza A (RT-PCR) Influenza A (H1) PCR Influ A (H1/) PCR Influenza A (H3) PCR Influenza Type A (PCR) Influenza B (RT-PCR) Influenza Type B (PCR) M. pneumoniae (PCR) Parainfluenza 1 (PCR) Parainfluenza 2 (PCR) Parainfluenza 3 (PCR) Parainfluenza 4 (PCR) RSV (PCR) RSV RNA Qual (PCR) Entero/Rhino (PCR) SARS-CoV-2 RNA (RT-PCR) 01/27/25 01/27/25 01/27/25 07:41 08:12 09:49 WBC RBC Hgb Hct MCV MCH MCHC RDW Plt Count MPV Immature Gran % (Auto) Neut % (Auto) Lymph % (Auto) [place] % (Auto) Eos % (Auto) Baso % (Auto) Lymph # (Auto) [place] # (Auto) Eos # (Auto) Baso # (Auto) Abs Immat Gran (auto) Absolute Neuts (auto) Absolute Nucleated RBC Nucleated RBC % (auto) PT INR VBG pH 7.42 VBG pCO2 27 VBG pO2 93 VBG HCO3 18 L VBG O2 Saturation 100.0 VBG Base Excess -4.8 Sodium Potassium Chloride Carbon Dioxide Anion Gap BUN Creatinine Estim Creat Clear Calc Estimated GFR POC Glucose Random Glucose Lactic Acid Lactic Acid F/U @ 2Hr Lactic Acid F/U @ 4Hr 3.0 H* Calcium Magnesium Total Bilirubin Direct Bilirubin AST ALT Alkaline Phosphatase Total Creatine Kinase Troponin I High Sens C-Reactive Protein Total Protein Albumin Lipase TSH Beta HCG, Quant Urine Color Yellow Urine Appearance Clear Urine pH 5.5 Ur Specific [place] >= 1.030 H Urine Protein 30 (1+) H Urine Glucose (UA) 100 H Urine Ketones 40 Urine Blood Negative Urine Nitrite Negative Ur Leukocyte Esterase Negative Urine RBC 0-2 Urine WBC 0-5 Ur Squamous Epith Cells 0-2 Urine Bacteria None Seen Hyaline Casts 3-5 Urine Opiates Screen POSITIVE H Ur Buprenorphine Scrn Not Detected Ur Oxycodone Screen Not Detected Urine Methadone Screen Positive H Urine Fentanyl Screen POSITIVE H Ur Barbiturates Screen Not Detected Ur Phencyclidine Scrn Not Detected Ur Amphetamines Screen Not Detected U Benzodiazepines Scrn Not Detected Urine Cocaine Screen Not Detected U Marijuana (THC) Screen Not Detected Ethyl Alcohol Respiratory Panel [place] Adenovirus (Rapid PCR) B.pert (TEM-PCR) B.parapertussis DNA PCR C. pneumoniae DNA (PCR) Coronavirus OC43 (PCR) Coronavirus HKU1 (PCR) Coronavirus 229E (PCR) Coronavirus NL63 (PCR) Human Metapneumovir PCR Influenza A (RT-PCR) Influenza A (H1) PCR Influ A (H1/) PCR Influenza A (H3) PCR Influenza Type A (PCR) NEGATIVE Influenza B (RT-PCR) Influenza Type B (PCR) NEGATIVE M. pneumoniae (PCR) Parainfluenza 1 (PCR) Parainfluenza 2 (PCR) Parainfluenza 3 (PCR) Parainfluenza 4 (PCR) RSV (PCR) RSV RNA Qual (PCR) NEGATIVE Entero/Rhino (PCR) SARS-CoV-2 RNA (RT-PCR) NEGATIVE 01/27/25 01/28/25 01/28/25 11:58 00:27 03:22 WBC RBC Hgb Hct MCV MCH MCHC RDW Plt Count MPV Immature Gran % (Auto) Neut % (Auto) Lymph % (Auto) [place] % (Auto) Eos % (Auto) Baso % (Auto) Lymph # (Auto) [place] # (Auto) Eos # (Auto) Baso # (Auto) Abs Immat Gran (auto) Absolute Neuts (auto) Absolute Nucleated RBC Nucleated RBC % (auto) PT INR VBG pH VBG pCO2 VBG pO2 VBG HCO3 VBG O2 Saturation VBG Base Excess Sodium Potassium Chloride Carbon Dioxide Anion Gap BUN Creatinine Estim Creat Clear Calc Estimated GFR POC Glucose 153 H Random Glucose Lactic Acid Lactic Acid F/U @ 2Hr Lactic Acid F/U @ 4Hr Calcium Magnesium Total Bilirubin Direct Bilirubin AST ALT Alkaline Phosphatase Total Creatine Kinase Troponin I High Sens 183.6 H* D C-Reactive Protein Total Protein Albumin Lipase TSH Beta HCG, Quant Urine Color Urine Appearance Urine pH Ur Specific [place] Urine Protein Urine Glucose (UA) Urine Ketones Urine Blood Urine Nitrite Ur Leukocyte Esterase Urine RBC Urine WBC Ur Squamous Epith Cells Urine Bacteria Hyaline Casts Urine Opiates Screen Ur Buprenorphine Scrn Ur Oxycodone Screen Urine Methadone Screen Urine Fentanyl Screen Ur Barbiturates Screen Ur Phencyclidine Scrn Ur Amphetamines Screen U Benzodiazepines Scrn Urine Cocaine Screen U Marijuana (THC) Screen Ethyl Alcohol Respiratory Panel [place] See Note Adenovirus (Rapid PCR) Not Detected B.pert (TEM-PCR) Not Detected B.parapertussis DNA PCR Not Detected C. pneumoniae DNA (PCR) Not Detected Coronavirus OC43 (PCR) Not Detected Coronavirus HKU1 (PCR) Not Detected Coronavirus 229E (PCR) Not Detected Coronavirus NL63 (PCR) Not Detected Human Metapneumovir PCR Not Detected Influenza A (RT-PCR) Not Detected Influenza A (H1) PCR Not Detected Influ A (H1/09) PCR Not Detected Influenza A (H3) PCR Not Detected Influenza Type A (PCR) Influenza B (RT-PCR) Not Detected Influenza Type B (PCR) M. pneumoniae (PCR) Not Detected Parainfluenza 1 (PCR) Not Detected Parainfluenza 2 (PCR) Not Detected Parainfluenza 3 (PCR) Not Detected Parainfluenza 4 (PCR) Not Detected RSV (PCR) Not Detected RSV RNA Qual (PCR) Entero/Rhino (PCR) Not Detected SARS-CoV-2 RNA (RT-PCR) Not Detected 01/28/25 06:38 WBC 13.3 H RBC 4.68 Hgb 13.2 Hct 38.0 MCV 81.2 MCH 28.2 MCHC 34.7 RDW 13.8 Plt Count 212 D MPV 8.9 L Immature Gran % (Auto) Neut % (Auto) Lymph % (Auto) [place] % (Auto) Eos % (Auto) Baso % (Auto) Lymph # (Auto) [place] # (Auto) Eos # (Auto) Baso # (Auto) Abs Immat Gran (auto) Absolute Neuts (auto) Absolute Nucleated RBC 0.000 Nucleated RBC % (auto) 0.0 PT INR VBG pH VBG pCO2 VBG pO2 VBG HCO3 VBG O2 Saturation VBG Base Excess Sodium 143 Potassium 3.9 Chloride 110 H Carbon Dioxide 21 L Anion Gap 16 BUN 11 Creatinine 0.71 Estim Creat Clear Calc 154.2 Estimated GFR > 60 POC Glucose Random Glucose 156 H Lactic Acid Lactic Acid F/U @ 2Hr Lactic Acid F/U @ 4Hr Calcium 8.3 L Magnesium Total Bilirubin 1.1 H Direct Bilirubin AST 61 H ALT 90 H Alkaline Phosphatase 48 Total Creatine Kinase Troponin I High Sens 160.5 H* C-Reactive Protein Total Protein 6.5 Albumin 3.5 Lipase TSH Beta HCG, Quant Urine Color Urine Appearance Urine pH Ur Specific [place] Urine Protein Urine Glucose (UA) Urine Ketones Urine Blood Urine Nitrite Ur Leukocyte Esterase Urine RBC Urine WBC Ur Squamous Epith Cells Urine Bacteria Hyaline Casts Urine Opiates Screen Ur Buprenorphine Scrn Ur Oxycodone Screen Urine Methadone Screen Urine Fentanyl Screen Ur Barbiturates Screen Ur Phencyclidine Scrn Ur Amphetamines Screen U Benzodiazepines Scrn Urine Cocaine Screen U Marijuana (THC) Screen Ethyl Alcohol Respiratory Panel [place] Adenovirus (Rapid PCR) B.pert (TEM-PCR) B.parapertussis DNA PCR C. pneumoniae DNA (PCR) Coronavirus OC43 (PCR) Coronavirus HKU1 (PCR) Coronavirus 229E (PCR) Coronavirus NL63 (PCR) Human Metapneumovir PCR Influenza A (RT-PCR) Influenza A (H1) PCR Influ A (H1/09) PCR Influenza A (H3) PCR Influenza Type A (PCR) Influenza B (RT-PCR) Influenza Type B (PCR) M. pneumoniae (PCR) Parainfluenza 1 (PCR) Parainfluenza 2 (PCR) Parainfluenza 3 (PCR) Parainfluenza 4 (PCR) RSV (PCR) RSV RNA Qual (PCR) Entero/Rhino (PCR) SARS-CoV-2 RNA (RT-PCR) Imaging Radiology Impressions: ITS Impressions Abdomen/Pelvis CT 01/27/25 05:39 IMPRESSION: Hiatal hernia, small size. Small fat-containing umbilical hernia. Probable hepatic steatosis, mild. Fleischner guidelines were followed. Electronically signed by: Homero Garner MD 01/27/2025 08:12 AM EDT RP Chest CTA 01/27/25 05:39 IMPRESSION: No acute pulmonary artery emboli. No aneurysm or dissection. No acute airspace disease. Small hiatal hernia. Multilevel spondylosis. Fleischner guidelines were followed. Electronically signed by: Homero Graner MD 01/27/2025 08:04 AM EDT RP Chest X-Ray 01/27/25 06:30 IMPRESSION: No acute cardiopulmonary abnormality. Electronically signed by: Erik Flannery MD 01/27/2025 07:59 AM EDT RP Mental Status Exam Mental Status Exam Level of Consciousness: Awake, Appropriate and Alert Patient Behavior: Appropriate and Anxious Affect Description: Anxious Medications Medications Current Medications Acetaminophen (Acetaminophen 325 Mg Tablet) 650 mg PO Q6H PRN PRN Reason: Pain, Mild 1-3,fever,headache Calcium Carbonate (Calcium Carbonate 750 Mg Tab.Chew) 750 mg PO Q4H PRN PRN Reason: Heartburn Clonidine HCl (Clonidine Hcl 0.1 Mg Tablet) 0.1 mg PO TID PRN; Protocol PRN Reason: Anxiety Last Admin: 01/27/25 20:06 Dose: 0.1 mg Cyclobenzaprine HCl (Cyclobenzaprine Hcl 10 Mg Tablet) 10 mg PO Q8H PRN PRN Reason: Muscle Spasm Last Admin: 01/27/25 13:17 Dose: 10 mg Dicyclomine HCl (Dicyclomine Hcl 10 Mg Capsule) 10 mg PO TIDAC PRN PRN Reason: abdominal pain Hydromorphone HCl (Hydromorphone Hcl 1 Mg/Ml Syringe) 1 mg IVPUSH Q3H PRN; Protocol PRN Reason: Pain, Severe (Pain Scale 7-10) Last Admin: 01/28/25 11:22 Dose: 1 mg Piperacillin Sod/Tazobactam (Sod 4.5 gm/ Sodium Chloride) 100 mls @ 200 mls/hr IV Q6H [facility] [place] Last Infusion: 01/28/25 07:30 Dose: Infused Vancomycin HCl 1,000 mg/ (Sodium Chloride) 270 mls @ 270 mls/hr IV Q12H [facility] Last Infusion: 01/28/25 06:20 Dose: Infused Lactated Ringer's (Lr) 1,000 mls @ 100 mls/hr IVCONT .Q10H [facility] Last Admin: 01/27/25 23:16 Dose: 100 mls/hr Lorazepam (Lorazepam 1 Mg Tablet) 1 mg PO Q6H PRN PRN Reason: anxiety/restlessness Magnesium Hydroxide (Milk Of Magnesia 30 Ml Oral.Susp) 30 ml PO DAILY PRN PRN Reason: Constipation Melatonin (Melatonin 3 Mg Tablet) 6 mg PO BEDTIME PRN PRN Reason: Insomnia Last Admin: 01/27/25 22:30 Dose: 6 mg Ondansetron HCl (Ondansetron Hcl 4 Mg/2 Ml Vial) 4 mg IVPUSH Q8H PRN PRN Reason: Nausea and Vomiting Last Admin: 01/28/25 06:51 Dose: 4 mg Pantoprazole Sodium (Pantoprazole Sodium 40 Mg/10 Ml Vial) 40 mg IVPUSH BID@0630,1630 [facility] [place] Last Admin: 01/28/25 05:12 Dose: 40 mg Pharmacy Consult (Consult Rx Vancomycin Dosing) 1 each MISCELLANE DAILY PRN PRN Reason: Consult order Sodium Chloride (0.9 % Sodium Chloride Flush 3 Ml Syringe) 3 ml IVFLUSH QSHIFT [facility] [place] Last Admin: 01/28/25 08:11 Dose: 3 ml Allergies Allergies Allergy/AdvReac Type Severity Reaction Status Date / Time No Known Allergies (No Known Allergy Verified 01/27/25 05:04 Allergies*) Assessment & Plan Assessment & Plan (1) Opioid use disorder: Status: Acute Code(s): F11.90 - Opioid use, unspecified, uncomplicated Assessment and Plan: attempted to give 1/2 dose of methadone which patient was unable to tolerate and quickly vomited hold methadone until able to tolerate PO continue IV full agonists to address discomfort and withdrawal sx as necessary Total time managing care of this patient today __40__ minutes. PMFSH Past Medical History Medical History (Updated 01/28/25 @ 15:05 by Luna Espinoza MD) Leukocytosis Opioid use disorder Nausea Back pain Anxiety Hyperlipidemia Depression GERD (gastroesophageal reflux disease) Morbid obesity Knee pain, bilateral Back problem High cholesterol Family History Family History Mother Lung collapse Father Diabetes Heart attack Depression PTSD (post-traumatic stress disorder) Sister No problems noted. Sister No problems noted. Son No problems noted. Son No problems noted. Social History Social History Household Members: Children Household Members Other:: kids 8 and 10 Housing: Apartment Do you presently have visiting nurse or other home services: No Alcohol intake: never Patient Tobacco Use Status: Never used Tobacco Cigarettes Per Day: 2 service: No
--- NOTE | 2025-01-28 12:14 | HE.PHANOTE ---
METHADONE Pt last received 85mg on 01/23/25 with 3 take home bottles though 01/26/25 from [facility] ([phone]), per JESUS Hensley at facility.
--- NOTE | 2025-01-28 13:00 | HO.WOUND ---
Wound consult attempted - arrival to bedside patient was off unit will attempt assessment at future date and time.
[2025-01-28] MEDS: methADONE HCl 20 MG/2 ML ORAL.CONC 40 MG PO (14:31)
--- NOTE | 2025-01-28 15:00 | W.PM.IDCN ---
History of Present Illness Data of Consult Service Date: 01/28/25 Requesting physician: Genaro Delaney Primary Care Provider: Unknown Physician HPI Reason for consult: nausea,leukocytosis She presents with nausea last three days with abdominal pain ,RUQ 4/10 with eructation and vomiting. She has no dysuria or diarrhea. She has a Araujo catheter in. She has WBC 21.9. She has negative blood cultures and CT scans She is on methadone and last used fentanyl two weeks ago she says and is still in tox screen. She denies cocaine. Review of Systems Review of Systems: Yes all other systems are reviewed and are negative [facility] Past Medical History Medical History (Updated 01/28/25 @ 15:05 by Luna Espinoza MD) Leukocytosis Opioid use disorder Nausea Back pain Anxiety Hyperlipidemia Depression GERD (gastroesophageal reflux disease) Morbid obesity Knee pain, bilateral Back problem High cholesterol Family History Family History Mother Lung collapse Father Diabetes Heart attack Depression PTSD (post-traumatic stress disorder) Sister No problems noted. Sister No problems noted. Son No problems noted. Son No problems noted. Family history: reviewed and not pertinent Social History Social History Household Members: Children Household Members Other:: kids 8 and 10 Housing: Apartment Do you presently have visiting nurse or other home services: No Alcohol intake: never Patient Tobacco Use Status: Never used Tobacco Cigarettes Per Day: 2 service: No Meds Allergies Allergy/AdvReac Type Severity Reaction Status Date / Time No Known Allergies (No Known Allergy Verified 01/27/25 05:04 Allergies*) Active Medications: Current Medications Acetaminophen (Acetaminophen 325 Mg Tablet) 650 mg PO Q6H PRN PRN Reason: Pain, Mild 1-3,fever,headache Calcium Carbonate (Calcium Carbonate 750 Mg Tab.Chew) 750 mg PO Q4H PRN PRN Reason: Heartburn Clonidine HCl (Clonidine Hcl 0.1 Mg Tablet) 0.1 mg PO TID PRN; Protocol PRN Reason: Anxiety Last Admin: 01/27/25 20:06 Dose: 0.1 mg Cyclobenzaprine HCl (Cyclobenzaprine Hcl 10 Mg Tablet) 10 mg PO Q8H PRN PRN Reason: Muscle Spasm Last Admin: 01/28/25 14:30 Dose: 10 mg Dicyclomine HCl (Dicyclomine Hcl 10 Mg Capsule) 10 mg PO TIDAC PRN PRN Reason: abdominal pain Hydromorphone HCl (Hydromorphone Hcl 1 Mg/Ml Syringe) 1 mg IVPUSH Q3H PRN; Protocol PRN Reason: Pain, Severe (Pain Scale 7-10) Last Admin: 01/28/25 14:43 Dose: 1 mg Piperacillin Sod/Tazobactam (Sod 4.5 gm/ Sodium Chloride) 100 mls @ 200 mls/hr IV Q6H [facility] Last Admin: 01/28/25 14:31 Dose: 200 mls/hr Vancomycin HCl 1,000 mg/ (Sodium Chloride) 270 mls @ 270 mls/hr IV Q12H [facility] Last Infusion: 01/28/25 06:20 Dose: Infused Lactated Ringer's (Lr) 1,000 mls @ 100 mls/hr IVCONT .Q10H [facility] Last Admin: 01/27/25 23:16 Dose: 100 mls/hr Lorazepam (Lorazepam 1 Mg Tablet) 1 mg PO Q6H PRN PRN Reason: anxiety/restlessness Magnesium Hydroxide (Milk Of Magnesia 30 Ml Oral.Susp) 30 ml PO DAILY PRN PRN Reason: Constipation Melatonin (Melatonin 3 Mg Tablet) 6 mg PO BEDTIME PRN PRN Reason: Insomnia Last Admin: 01/27/25 22:30 Dose: 6 mg Ondansetron HCl (Ondansetron Hcl 4 Mg/2 Ml Vial) 4 mg IVPUSH Q8H PRN PRN Reason: Nausea and Vomiting Last Admin: 01/28/25 14:30 Dose: 4 mg Pantoprazole Sodium (Pantoprazole Sodium 40 Mg/10 Ml Vial) 40 mg IVPUSH BID@0630,1630 [facility] Last Admin: 01/28/25 05:12 Dose: 40 mg Pharmacy Consult (Consult Rx Vancomycin Dosing) 1 each MISCELLANE DAILY PRN PRN Reason: Consult order Sodium Chloride (0.9 % Sodium Chloride Flush 3 Ml Syringe) 3 ml IVFLUSH QSHIFT [facility] Last Admin: 01/28/25 08:11 Dose: 3 ml Home Medications ?Medication ?Instructions ?Recorded ?Confirmed ?Last Taken ?Type clonidine HCl 0.1 mg tablet 0.1 mg PO TID PRN anxiety 09/23/24 01/27/25 Unknown History ibuprofen 200 mg tablet 400 mg PO Q6H PRN Fever Or Pain 09/23/24 01/27/25 09/23/24 History methadone 10 mg/mL oral concentrate 85 mg PO DAILY 09/24/24 01/28/25 01/26/25 History cyclobenzaprine 10 mg tablet 10 mg PO Q8H PRN Muscle Spasm 01/27/25 01/27/25 Unknown History Physical Exam Vital Signs: Vital Signs: Last Vital Signs Temp 98.6 F 01/28/25 14:10 Pulse 109 H 01/28/25 14:10 Resp 20 01/28/25 14:10 BP 174/105 H 01/28/25 14:10 Pulse Ox 95 01/28/25 14:10 O2 Del Method Room Air 01/28/25 14:10 BMI result Body Mass Index 45.6 Eyes: Other: mydriasis GI: Other: mild abdominal discomfort Results Labs 01/28/25 06:38 01/28/25 06:38 Labs: Short CBC 01/28/25 Range/Units 06:38 WBC 13.3 H (4.8-10.8) X10*3/uL Hgb 13.2 (12.0-16.0) g/dl Hct 38.0 (37.0-47.0) % Plt Count 212 D (160-400) X10*3/uL BMP 01/28/25 06:38 Sodium 143 Potassium 3.9 Chloride 110 H Carbon Dioxide 21 L BUN 11 Creatinine 0.71 Calcium 8.3 L Liver Function 01/28/25 Range/Units 06:38 Total Bilirubin 1.1 H (0.0-1.0) mg/dL AST 61 H (5-31) U/L ALT 90 H (0-31) U/L Alkaline Phosphatase 48 (39-117) U/L Albumin 3.5 (3.5-5.0) g/dL Microbiology Microbiology Results: Microbiology 01/27/25 05:25 Blood - Venous Blood Culture - Preliminary No growth after 24 hours. 01/27/25 05:14 Blood - Venous Blood Culture - Preliminary No growth after 24 hours. Assessment and Plan (1) Opioid use disorder: Status: Acute (2) Leukocytosis: Status: Acute Plan Leukocytosis with no infection seen concern over serotonin syndrome with methadone and longlasting fentanyl. She has no infection seen so far and she denies tick or mosquito exposure. Would stop antibiotics if cultures remain negative Check Hepatitis A,B,C and HIV Supportive care.
[2025-01-28 15:43] LABS: Magnesium 1.9 mg/dL (1.6-2.6)
[2025-01-28] MEDS: Lactated Ringers 1,000 ML 100 ML IVCONT (16:59)
--- NOTE | 2025-01-28 17:06 | HE.PHANOTE ---
EDWARDO Changing dosing to 1000mg Q8H per subtherapeutic trough. New predicted trough 14.8, AUC 483. Next trough to be pulled 01/29 @1600.
--- NOTE | 2025-01-28 21:45 | P.PNIM_ITS ---
Subjective Subjective Date of Service: 01/28/25 Interval History: f/ on fever, chills, sinus tachycardia, nausea adn vomitting persitent symptoms in the into afternoon but improved and was able take oral meds Physical Exam 2 Vital Signs: Vital Signs: Last Vital Signs Temp 98.0 F 01/28/25 19:43 Pulse 96 01/28/25 19:43 Resp 16 01/28/25 19:43 BP 162/94 H 01/28/25 19:43 Pulse Ox 95 01/28/25 19:43 O2 Del Method Room Air 01/28/25 19:43 BMI result Body Mass Index 45.6 Const: Other: General: AO X 3, seemed anxious,face red from retching Resp: CTA bilateral CVS: S1,S2,RRR, tachy GI: +BS, NT, no distention, non-specific tenderness Skin: No rash Neuro: motor grossly intact Psych: appropriate affect Objective Data Active Medications Acetaminophen (Acetaminophen 325 Mg Tablet) 650 mg PO Q6H PRN PRN Reason: Pain, Mild 1-3,fever,headache Calcium Carbonate (Calcium Carbonate 750 Mg Tab.Chew) 750 mg PO Q4H PRN PRN Reason: Heartburn Clonidine HCl (Clonidine Hcl 0.1 Mg Tablet) 0.1 mg PO TID PRN; Protocol PRN Reason: Anxiety Last Admin: 01/27/25 20:06 Dose: 0.1 mg Documented By: KAIT Cyclobenzaprine HCl (Cyclobenzaprine Hcl 10 Mg Tablet) 10 mg PO Q8H PRN PRN Reason: Muscle Spasm Last Admin: 01/28/25 14:30 Dose: 10 mg Documented By: ADY Dicyclomine HCl (Dicyclomine Hcl 10 Mg Capsule) 10 mg PO TIDAC PRN PRN Reason: abdominal pain Last Admin: 01/28/25 17:58 Dose: 10 mg Documented By: ADY Hydromorphone HCl (Hydromorphone Hcl 1 Mg/Ml Syringe) 1 mg IVPUSH Q3H PRN; Protocol PRN Reason: Pain, Severe (Pain Scale 7-10) Last Admin: 01/28/25 20:59 Dose: 1 mg Documented By: LIZZY Piperacillin Sod/Tazobactam (Sod 4.5 gm/ Sodium Chloride) 100 mls @ 200 mls/hr IV Q6H [facility] Last Infusion: 01/28/25 21:01 Dose: Infused Documented By: LIZZY Lactated Ringer's (Lr) 1,000 mls @ 100 mls/hr IVCONT .Q10H [facility] Last Admin: 01/28/25 16:59 Dose: 100 mls/hr Documented By: ADY Vancomycin HCl 1,000 mg/ (Sodium Chloride) 270 mls @ 270 mls/hr IV Q8H [facility] Last Infusion: 01/28/25 19:45 Dose: Infused Documented By: LIZZY Lorazepam (Lorazepam 1 Mg Tablet) 1 mg PO Q6H PRN PRN Reason: anxiety/restlessness Magnesium Hydroxide (Milk Of Magnesia 30 Ml Oral.Susp) 30 ml PO DAILY PRN PRN Reason: Constipation Melatonin (Melatonin 3 Mg Tablet) 6 mg PO BEDTIME PRN PRN Reason: Insomnia Last Admin: 01/27/25 22:30 Dose: 6 mg Documented By: JONES Ondansetron HCl (Ondansetron Hcl 4 Mg/2 Ml Vial) 4 mg IVPUSH Q8H PRN PRN Reason: Nausea and Vomiting Last Admin: 01/28/25 20:16 Dose: 4 mg Documented By: MICHAELLE Comments: pt ok to give erly Pantoprazole Sodium (Pantoprazole Sodium 40 Mg/10 Ml Vial) 40 mg IVPUSH BID@0630,1630 [facility] Last Admin: 01/28/25 16:58 Dose: 40 mg Documented By: ADY Pharmacy Consult (Consult Rx Vancomycin Dosing) 1 each MISCELLANE DAILY PRN PRN Reason: Consult order Sodium Chloride (0.9 % Sodium Chloride Flush 3 Ml Syringe) 3 ml IVFLUSH QSHIFT [facility] Last Admin: 01/28/25 17:00 Dose: 3 ml Documented By: ADY Labs 01/28/25 06:38 01/28/25 06:38 Labs: Laboratory Results - last 24 hr 01/28/25 01/28/25 01/28/25 00:27 03:22 06:38 MCV 81.2 MCH 28.2 MCHC 34.7 RDW 13.8 Plt Count 212 D MPV 8.9 L Absolute Nucleated RBC 0.000 Nucleated RBC % (auto) 0.0 Anion Gap 16 Estim Creat Clear Calc 154.2 Estimated GFR > 60 POC Glucose 153 H Random Glucose 156 H Calcium 8.3 L Magnesium 1.9 Total Bilirubin 1.1 H AST 61 H ALT 90 H Alkaline Phosphatase 48 Troponin I High Sens 183.6 H* D 160.5 H* Total Protein 6.5 Albumin 3.5 Random Vancomycin 01/28/25 16:11 MCV MCH MCHC RDW Plt Count MPV Absolute Nucleated RBC Nucleated RBC % (auto) Anion Gap Estim Creat Clear Calc Estimated GFR POC Glucose Random Glucose Calcium Magnesium Total Bilirubin AST ALT Alkaline Phosphatase Troponin I High Sens Total Protein Albumin Random Vancomycin 7.4 L Microbiology Microbiology Results: Microbiology 01/27/25 05:25 Blood Culture - Preliminary Blood - Venous No growth after 24 hours. 01/27/25 05:14 Blood Culture - Preliminary Blood - Venous No growth after 24 hours. Assessment and Plan (1) Nausea: Status: Acute (2) Abdominal pain with vomiting: Status: Acute (3) Drug withdrawal: Status: Acute Plan Pt is a 40-year-old female with a PMH significant for opiate use disorder, hepatitis-C untreated, anxiety, and depression?who presents to the ED with?shaking chills, nausea, vomiting, and upper abdominal pain x3 days. Pt is admitted to the hospital for treatment and further evaluation of SIRS criteria with severe features of unclear etiology. Initially thought to have Sepsis, however no evidence of infectious despite fevers and essentially negative infectious work up withCXR negative, chest CTA negative, CT of abd/pelvis negative, RSV/COVID/flu negative,HIDA, UA negative. Her symptoms are likely from drug withdrawal. At this point stoping Abx and following further r Tachycardia/ Hypertension--likely related to drug withdrawal, treat underlyuing withdrwal with benzo, clonidine.. PRN Labetalol for high BPs, seen by cardiology Persistent tachycardia in 140s, likely multifactorial: In setting of sepsis and secondary to pain Will hold on echocardiogram and Cardiology consult Monitor on telemetry Hypomagnesemia Magnesium 1.5 at time of presentation Received Mag 2g in the ED and now normal Elevated troponins, ruled out OR Initial troponin 420.7 with repeat flat at 508.6 EKG nonischemic, pt denies chest pain/pressure Likely type 2 in the setting of increased demand Monitor on telemetry MOISES, resolved Initial creatinine 1.26 (previous 0.85), normalized 0.97 after IVF Follow creatinine Hepatitis-C Untreated, diagnosed a few years ago Pt with transaminitis Denies hx of alcohol use Follow up outpatient for treatment Opioid use disorder Recent relapsed 2 weeks ago after sometime being clean Takes heroin intranasally, denies hx of IVDU Continue methadone once verified and pt able to tolerate p.o. Addiction medicine consult Full CodeAttending:?Dr. Corbin DVT Prophylaxis: Pneumatic compression due to possible surgical procedure Quality Stroke Does the patient have a stroke diagnosis?: No VTE Prior VTE?: No VTE Risk Level:: Medical - moderate - high VTE Device Contraindication: Treatment Not Indicated VTE Drug Contraindication: N/A - Med Ordered
--- NOTE | 2025-01-28 22:50 | CONS_ITS ---
DATE OF SERVICE: 01/28/2025 REFERRING PHYSICIAN: SANDEE Vo REASON FOR CONSULTATION: . HISTORY OF PRESENT ILLNESS: The patient is a pleasant 40-year-old woman who was admitted to the hospital after presenting to the emergency department with complaints of abdominal pain yesterday. Symptoms began approximately 2 days prior to admission when she developed nausea with nonbloody emesis and subsequent dry heaves. There was associated generalized abdominal pain. She did not have a fever but had chills and she reports some flushing when questioned. She has no history of GI carcinoid and has not been evaluated for this by a physician as she has no primary care doctor. She reports this have occurred intermittently over a period of every couple of months for several occasions. She triggers. She was evaluated with multiple imaging studies and laboratory studies, which were reviewed. CT scanning of the abdomen . CT angiography of the chest and abdomen have been obtained. Imaging of her abdomen and pelvis has shown a small fat-containing umbilical hernia, a hiatal hernia, and hepatic steatosis. abdomen and pelvis had shown no evidence of mesenteric ischemia. Gallbladder was found to have nonspecific distention and she is currently in Nuclear Medicine, getting a HIDA scan. She denies any history of gallbladder problems. Previous imaging with ultrasound has not been done here. Laboratory studies on admission showed an elevated white count of 21.9 and . She does have a history likely from intravenous drug use in the past, which has not been treated by her report. She had been abstinent from drugs, but reportedly relapsed within the past month. Urine tox screen on admission was positive for opiates, methadone, and fentanyl. PAST MEDICAL HISTORY: 1. Drug usage as above. 2. Hepatitis C. 3. Anxiety/depression. 4. Back pain. 5. Gastroesophageal reflux disease. 6. Elevated body mass index. 7. Knee pain. 8. Hyperlipidemia. CURRENT MEDICATIONS: Her current medication list is reviewed in the chart. ALLERGIES: NONE REPORTED. FAMILY HISTORY: This is reviewed with the patient and is noncontributory. SOCIAL HISTORY: There is no current tobacco or alcohol use per the patient. REVIEW OF SYSTEMS: SKIN: No pruritus. HEENT: Negative. CARDIOPULMONARY: No shortness of breath or chest pain. GASTROINTESTINAL: As above. GENITOURINARY: Negative. NEUROPSYCHIATRIC: Negative. PHYSICAL EXAMINATION: GENERAL: Shows a pleasant female, lying on Nuclear Medicine table. She appears to be shaking but denies having chills. VITAL SIGNS: Reviewed in the electronic medical record and are stable. SKIN: Anicteric. HEENT: Shows no scleral icterus. NECK: Without lymphadenopathy or thyromegaly. LUNGS: Clear. HEART: Shows a regular rate and rhythm. S1, S2. No murmur. ABDOMEN: Soft without focal masses or tenderness. There is some diffuse tenderness to palpation. There is no guarding or rebound. Bowel sounds are present. EXTREMITIES: Without edema. LABORATORY DATA AND IMAGING STUDIES: Reviewed in detail. IMPRESSION: 1. Abdominal pain. It seems fairly unlikely that she would have carcinoid tumor as a cause for her symptoms. I discussed this with her. I agree with obtaining HIDA scanning as you are doing. I would monitor her liver function tests. She can undergo outpatient treatment for her hepatitis C viral infection after this hospitalization. If carcinoid is thought likely, further evaluation with a 24-hour urine for 5-HIAA can be obtained and octreotide scanning could be ordered, but this will have to be at [facility] as it is not done at this facility. In the interim, I agree with treating her symptoms as you are doing. Thanks for asking me to see her. I will follow her in the hospital as needed. MD JIM Reyes/JOSEPH / [phone]
[2025-01-29] MEDS: 0.9 % Sodium Chloride Flush 3 ML SYRINGE IVFLUSH ×4 (00:08→19:52)
[2025-01-29 03:30] VITALS: BP 179/99; PULSE 112; RESP 18; TEMP 37.2; O2SAT 94
[2025-01-29] MEDS: Lactated Ringers 1,000 ML 100 ML IVCONT ×2 (03:41→16:14)
[2025-01-29 06:38] LABS: Creatinine Clr Calc Pharmacy 173.7; Estimated Glomerular Filt Rate > 60
[2025-01-29 07:37] VITALS: BP 173/98; PULSE 86; RESP 18; TEMP 36.9; O2SAT 95
[2025-01-29 07:59] LABS: HBS Num1 18.97 mIU/mL (0-7.99); HBsAGNum1 0.31 S/CO (0.00-0.99); HIV Num 1 0.06 S/CO (0.00-0.99); Hepatitis B Surface Antigen Negative (Negative); ~HepC Num1 15.98 S/CO (0.00-0.79); ~Hepatitis B Surface Antibody REACTIVE (Nonreactive); ~Hepatitis C Antibody Reactive (Nonreactive)
[2025-01-29 08:15] LABS: Syphilis Screen Nonreactive (Nonreactive)
--- NOTE | 2025-01-29 11:13 | HO.ADDICTPRO ---
Subjective Subjective Date of Service: 01/29/25 Reason For Visit: SIRS, elevated trops Interim History: Patient seen in follow up Sitting up in recliner. Reports she had just vomited--still unable to tolerate anything PO Discussed substance use again--reports one day recurrence of use 2 weeks ago when her child was sick and she could not make it to the [facility] for her methadone and missed 3 doses. She reports using a bundle of fentanyl to address withdrawal sx. She did not note that the product looked or felt differently when she used it. She denies any use since then. She is reporting withdrawal sx, body aches, anxiety, chills. last full dose of methadone Monday, 01/25, per her report. Patient also stating that she has had episodes similar to this, in the past and was seen at both [facility] and [facility]. She states each time they felt it was related to her gallbladder, however no intervention. HIDA scan completed here without findings Review of Systems Acute medical concerns: Yes Review of Systems Constitutional: Reports as per HPI Mental Status Exam Mental Status Exam Level of Consciousness: Awake and Alert Patient Behavior: Appropriate and Cooperative Affect Description: Anxious Speech Pattern: Clear Hallucinations: None Thought Process: Intact Thought Content: positive for Intact Diagnostics Vital Signs (24Hr): Vital Signs - 24 hr 01/28/25 14:10 01/28/25 15:03 01/28/25 19:43 Temperature 98.6 F 98.7 F 98.0 F Pulse Rate 109 H 96 96 Respiratory Rate 20 20 16 Blood Pressure 174/105 H 167/93 H 162/94 H Pulse Oximetry 95 94 95 Oxygen Delivery Method Room Air Room Air Room Air 01/28/25 23:40 01/29/25 03:30 01/29/25 07:37 Temperature 99.4 F 98.9 F 98.5 F Pulse Rate 91 112 H 86 Respiratory Rate 18 18 18 Blood Pressure 168/105 H 179/99 H 173/98 H Pulse Oximetry 93 94 95 Oxygen Delivery Method Room Air Room Air Room Air BMI result Body Mass Index 45.6 Labs 01/28/25 06:38 01/29/25 06:06 Labs: Laboratory Results - last 48 hr 01/27/25 01/28/25 01/28/25 11:58 00:27 03:22 WBC RBC Hgb Hct MCV MCH MCHC RDW Plt Count MPV Absolute Nucleated RBC Nucleated RBC % (auto) Sodium Potassium Chloride Carbon Dioxide Anion Gap BUN Creatinine Estim Creat Clear Calc Estimated GFR POC Glucose 153 H Random Glucose Calcium Magnesium Total Bilirubin AST ALT Alkaline Phosphatase Troponin I High Sens 183.6 H* D Total Protein Albumin Random Vancomycin Respiratory Panel [place] See Note T.pallidum Ab (EIA) Adenovirus (Rapid PCR) Not Detected B.pert (TEM-PCR) Not Detected B.parapertussis DNA PCR Not Detected C. pneumoniae DNA (PCR) Not Detected Coronavirus OC43 (PCR) Not Detected Coronavirus HKU1 (PCR) Not Detected Coronavirus 229E (PCR) Not Detected Coronavirus NL63 (PCR) Not Detected Hep Bs Antigen Hep Bs Antibody Hepatitis C Ab (EIA) HIV 1&2 Ab/P24 Ag 4thGn Human Metapneumovir PCR Not Detected Influenza A (RT-PCR) Not Detected Influenza A (H1) PCR Not Detected Influ A (H1/09) PCR Not Detected Influenza A (H3) PCR Not Detected Influenza B (RT-PCR) Not Detected M. pneumoniae (PCR) Not Detected Parainfluenza 1 (PCR) Not Detected Parainfluenza 2 (PCR) Not Detected Parainfluenza 3 (PCR) Not Detected Parainfluenza 4 (PCR) Not Detected RSV (PCR) Not Detected Entero/Rhino (PCR) Not Detected SARS-CoV-2 RNA (RT-PCR) Not Detected 01/28/25 01/28/25 01/28/25 06:38 16:11 20:35 WBC 13.3 H RBC 4.68 Hgb 13.2 Hct 38.0 MCV 81.2 MCH 28.2 MCHC 34.7 RDW 13.8 Plt Count 212 D MPV 8.9 L Absolute Nucleated RBC 0.000 Nucleated RBC % (auto) 0.0 Sodium 143 Potassium 3.9 Chloride 110 H Carbon Dioxide 21 L Anion Gap 16 BUN 11 Creatinine 0.71 Estim Creat Clear Calc 154.2 Estimated GFR > 60 POC Glucose Random Glucose 156 H Calcium 8.3 L Magnesium 1.9 Total Bilirubin 1.1 H AST 61 H ALT 90 H Alkaline Phosphatase 48 Troponin I High Sens 160.5 H* Total Protein 6.5 Albumin 3.5 Random Vancomycin 7.4 L Respiratory Panel [place] T.pallidum Ab (EIA) Nonreactive Adenovirus (Rapid PCR) B.pert (TEM-PCR) B.parapertussis DNA PCR C. pneumoniae DNA (PCR) Coronavirus OC43 (PCR) Coronavirus HKU1 (PCR) Coronavirus 229E (PCR) Coronavirus NL63 (PCR) Hep Bs Antigen Negative Hep Bs Antibody REACTIVE Hepatitis C Ab (EIA) Reactive H HIV 1&2 Ab/P24 Ag 4thGn Nonreactive Human Metapneumovir PCR Influenza A (RT-PCR) Influenza A (H1) PCR Influ A () PCR Influenza A (H3) PCR Influenza B (RT-PCR) M. pneumoniae (PCR) Parainfluenza 1 (PCR) Parainfluenza 2 (PCR) Parainfluenza 3 (PCR) Parainfluenza 4 (PCR) RSV (PCR) Entero/Rhino (PCR) SARS-CoV-2 RNA (RT-PCR) 01/29/25 06:06 WBC RBC Hgb Hct MCV MCH MCHC RDW Plt Count MPV Absolute Nucleated RBC Nucleated RBC % (auto) Sodium Potassium Chloride Carbon Dioxide Anion Gap BUN Creatinine 0.63 Estim Creat Clear Calc 173.7 Estimated GFR > 60 POC Glucose Random Glucose Calcium Magnesium Total Bilirubin AST ALT Alkaline Phosphatase Troponin I High Sens Total Protein Albumin Random Vancomycin Respiratory Panel [place] T.pallidum Ab (EIA) Adenovirus (Rapid PCR) B.pert (TEM-PCR) B.parapertussis DNA PCR C. pneumoniae DNA (PCR) Coronavirus OC43 (PCR) Coronavirus HKU1 (PCR) Coronavirus 229E (PCR) Coronavirus NL63 (PCR) Hep Bs Antigen Hep Bs Antibody Hepatitis C Ab (EIA) HIV 1&2 Ab/P24 Ag 4thGn Human Metapneumovir PCR Influenza A (RT-PCR) Influenza A (H1) PCR Influ A () PCR Influenza A (H3) PCR Influenza B (RT-PCR) M. pneumoniae (PCR) Parainfluenza 1 (PCR) Parainfluenza 2 (PCR) Parainfluenza 3 (PCR) Parainfluenza 4 (PCR) RSV (PCR) Entero/Rhino (PCR) SARS-CoV-2 RNA (RT-PCR) Imaging Radiology Impressions: ITS Impressions Abdomen/Pelvis CT 01/27/25 05:39 IMPRESSION: Hiatal hernia, small size. Small fat-containing umbilical hernia. Probable hepatic steatosis, mild. Fleischner guidelines were followed. Electronically signed by: Homero Garner MD 01/27/2025 08:12 AM EDT RP Chest CTA 01/27/25 05:39 IMPRESSION: No acute pulmonary artery emboli. No aneurysm or dissection. No acute airspace disease. Small hiatal hernia. Multilevel spondylosis. Fleischner guidelines were followed. Electronically signed by: Homero Garner MD 01/27/2025 08:04 AM EDT RP Chest X-Ray 01/27/25 06:30 IMPRESSION: No acute cardiopulmonary abnormality. Electronically signed by: Erik Flannery MD 01/27/2025 07:59 AM EDT RP Hepatobiliary Scan Nuclear Medicine 01/28/25 10:57 IMPRESSION: Within normal limits. Electronically signed by: Maninder Gaitan MD 01/28/2025 02:38 PM EDT RP Medications Medications Current Medications Acetaminophen (Acetaminophen 325 Mg Tablet) 650 mg PO Q6H PRN PRN Reason: Pain, Mild 1-3,fever,headache Calcium Carbonate (Calcium Carbonate 750 Mg Tab.Chew) 750 mg PO Q4H PRN PRN Reason: Heartburn Clonidine HCl (Clonidine Hcl 0.1 Mg Tablet) 0.1 mg PO TID PRN; Protocol PRN Reason: Anxiety Last Admin: 01/27/25 20:06 Dose: 0.1 mg Cyclobenzaprine HCl (Cyclobenzaprine Hcl 10 Mg Tablet) 10 mg PO Q8H PRN PRN Reason: Muscle Spasm Last Admin: 01/28/25 14:30 Dose: 10 mg Dicyclomine HCl (Dicyclomine Hcl 10 Mg Capsule) 10 mg PO TIDAC PRN PRN Reason: abdominal pain Last Admin: 01/28/25 17:58 Dose: 10 mg Hydromorphone HCl (Hydromorphone Hcl 1 Mg/Ml Syringe) 1 mg IVPUSH Q3H PRN; Protocol PRN Reason: Pain, Severe (Pain Scale 7-10) Last Admin: 01/29/25 09:37 Dose: 1 mg Lactated Ringer's (Lr) 1,000 mls @ 100 mls/hr IVCONT .Q10H [facility] Last Admin: 01/29/25 03:41 Dose: 100 mls/hr Lorazepam (Lorazepam 1 Mg Tablet) 1 mg PO Q6H PRN PRN Reason: anxiety/restlessness Last Admin: 01/29/25 08:07 Dose: 1 mg Magnesium Hydroxide (Milk Of Magnesia 30 Ml Oral.Susp) 30 ml PO DAILY PRN PRN Reason: Constipation Melatonin (Melatonin 3 Mg Tablet) 6 mg PO BEDTIME PRN PRN Reason: Insomnia Last Admin: 01/28/25 21:55 Dose: 6 mg Ondansetron HCl (Ondansetron Hcl 4 Mg/2 Ml Vial) 4 mg IVPUSH Q8H PRN PRN Reason: Nausea and Vomiting Last Admin: 01/29/25 03:42 Dose: 4 mg Pantoprazole Sodium (Pantoprazole Sodium 40 Mg/10 Ml Vial) 40 mg IVPUSH BID@0630,1630 [facility] Last Admin: 01/29/25 03:42 Dose: 40 mg Pharmacy Consult (Consult Rx Vancomycin Dosing) 1 each MISCELLANE DAILY PRN PRN Reason: Consult order Sodium Chloride (0.9 % Sodium Chloride Flush 3 Ml Syringe) [facility] Last Admin: 01/29/25 06:48 Dose: 3 ml Allergies Allergies Allergy/AdvReac Type Severity Reaction Status Date / Time No Known Allergies (No Known Allergy Verified 01/27/25 05:04 Allergies*) Assessment & Plan Assessment & Plan (1) Opioid use disorder: Status: Acute Code(s): F11.90 - Opioid use, unspecified, uncomplicated Assessment and Plan: as of this morning still reporting vomiting IV dilaudid--no concern for sedation once able to take PO, restart at 65mg Total time managing care of this patient today __25__ minutes.
--- NOTE | 2025-01-29 11:19 | HO.WOUND ---
Wound Consult: Initial 40yr old female? admitted to [facility] on 01/27/25 - See progress notes and H&P for detailed history.? Wound consult placed for Skin Folds.? Patient agreeable to assessment and photo documentation.? Yeast odor noted when skin folds assessed - tissue is mirrored pink red with moisture noted with some Satellite lesions noted. TT to provider Naman Cramer to order antifungal powder to skin folds. Breast and abdominal skin folds Etiology: MASD and fungal dermatitis ??Present on Admission Wound Bed: tissue is mirrored pink red with moisture noted with some Satellite lesions noted - yeast odor noted Goals of Treatment: ?Moisture translocation and antifungal powder. Recommendations: Skin Folds - Cleanse with PH balance wipes, pat dry with soft cloth.? Apply antifungal power to assist with moisture management.? Be sure to dust of excess powder to prevent caking on skin and in folds. Apply per provider orders. Tuck Interdry AG Sheet into skin fold to wick and translocate moisture away from skin fold.? Be sure to leave at least 2 inch of fabric exposed outside of skin fold.? Change after 5 days or when soiled. Re-consult wound care Nurse for wound deterioration or wound changes.
[2025-01-29 11:27] VITALS: BP 161/88; PULSE 94; RESP 17; TEMP 36.6; O2SAT 94
--- NOTE | 2025-01-29 12:47 | P.PNIM_ITS ---
Subjective Subjective Date of Service: 01/29/25 Interval History: f/ on fever, chills, sinus tachycardia, nausea adn vomitting She felt most of the day yesterday but overnight became sick again having nausea, no fever and has abd pain Physical Exam 2 Vital Signs: Vital Signs: Last Vital Signs Temp 97.9 F 01/29/25 11:27 Pulse 94 01/29/25 11:27 Resp 17 01/29/25 11:27 BP 161/88 H 01/29/25 11:27 Pulse Ox 94 01/29/25 11:27 O2 Del Method Room Air 01/29/25 11:27 BMI result Body Mass Index 45.6 Const: Other: General: AO X 3, seemed anxious,face red from retching Resp: CTA bilateral CVS: S1,S2,RRR, tachy GI: +BS, NT, no distention, non-specific tenderness Skin: No rash Neuro: motor grossly intact Psych: appropriate affect Objective Data Active Medications Acetaminophen (Acetaminophen 325 Mg Tablet) 650 mg PO Q6H PRN PRN Reason: Pain, Mild 1-3,fever,headache Calcium Carbonate (Calcium Carbonate 750 Mg Tab.Chew) 750 mg PO Q4H PRN PRN Reason: Heartburn Clonidine HCl (Clonidine Hcl 0.1 Mg Tablet) 0.1 mg PO TID PRN; Protocol PRN Reason: Anxiety Last Admin: 01/27/25 20:06 Dose: 0.1 mg Documented By: KAIT Cyclobenzaprine HCl (Cyclobenzaprine Hcl 10 Mg Tablet) 10 mg PO Q8H PRN PRN Reason: Muscle Spasm Last Admin: 01/28/25 14:30 Dose: 10 mg Documented By: ADY Dicyclomine HCl (Dicyclomine Hcl 10 Mg Capsule) 10 mg PO TIDAC PRN PRN Reason: abdominal pain Last Admin: 01/28/25 17:58 Dose: 10 mg Documented By: ADY Hydromorphone HCl (Hydromorphone Hcl 1 Mg/Ml Syringe) 1.25 mg IVPUSH Q3H PRN; Protocol PRN Reason: Pain, Severe (Pain Scale 7-10) Lactated Ringer's (Lr) 1,000 mls @ 100 mls/hr IVCONT .Q10H LAKISHA Last Admin: 01/29/25 03:41 Dose: 100 mls/hr Documented By: LIZZY Lorazepam (Lorazepam 1 Mg Tablet) 1 mg PO Q6H PRN PRN Reason: anxiety/restlessness Last Admin: 01/29/25 08:07 Dose: 1 mg Documented By: EVANGELINA Magnesium Hydroxide (Milk Of Magnesia 30 Ml Oral.Susp) 30 ml PO DAILY PRN PRN Reason: Constipation Melatonin (Melatonin 3 Mg Tablet) 6 mg PO BEDTIME PRN PRN Reason: Insomnia Last Admin: 01/28/25 21:55 Dose: 6 mg Documented By: LIZZY Ondansetron HCl (Ondansetron Hcl 4 Mg/2 Ml Vial) 4 mg IVPUSH Q8H PRN PRN Reason: Nausea and Vomiting Last Admin: 01/29/25 03:42 Dose: 4 mg Documented By: LIZZY Pantoprazole Sodium (Pantoprazole Sodium 40 Mg/10 Ml Vial) 40 mg IVPUSH BID@0630,1630 [facility] Last Admin: 01/29/25 03:42 Dose: 40 mg Documented By: LIZZY Pharmacy Consult (Consult Rx Vancomycin Dosing) 1 each MISCELLANE DAILY PRN PRN Reason: Consult order Sodium Chloride (0.9 % Sodium Chloride Flush 3 Ml Syringe) 3 ml IVFLUSH QSHIFT [facility] Last Admin: 01/29/25 06:48 Dose: 3 ml Documented By: LIZZY Labs 01/28/25 06:38 01/29/25 06:06 Labs: Laboratory Results - last 24 hr 01/28/25 01/28/25 01/28/25 06:38 16:11 20:35 Estim Creat Clear Calc Estimated GFR Magnesium 1.9 Random Vancomycin 7.4 L T.pallidum Ab (EIA) Nonreactive Hep Bs Antigen Negative Hep Bs Antibody REACTIVE Hepatitis C Ab (EIA) Reactive H HIV 1&2 Ab/P24 Ag 4thGn Nonreactive 01/29/25 06:06 Estim Creat Clear Calc 173.7 Estimated GFR > 60 Magnesium Random Vancomycin T.pallidum Ab (EIA) Hep Bs Antigen Hep Bs Antibody Hepatitis C Ab (EIA) HIV 1&2 Ab/P24 Ag 4thGn Microbiology Microbiology Results: Microbiology 01/27/25 05:25 Blood Culture - Preliminary Blood - Venous No growth after 48 hours. 01/27/25 05:14 Blood Culture - Preliminary Blood - Venous No growth after 48 hours. Assessment and Plan (1) Nausea: Status: Acute (2) Abdominal pain with vomiting: Status: Acute (3) Drug withdrawal: Status: Acute Plan Pt is a 40-year-old female with a PMH significant for opiate use disorder, hepatitis-C untreated, anxiety, and depression?who presents to the ED with?shaking chills, nausea, vomiting, and upper abdominal pain x3 days. Pt is admitted to the hospital for treatment and further evaluation of SIRS criteria with severe features of unclear etiology. Initially thought to have Sepsis, however no evidence of infectious despite fevers and essentially negative infectious work up withCXR negative, chest CTA negative, CT of abd/pelvis negative, RSV/COVID/flu negative,HIDA, UA negative. Her symptoms are likely from drug withdrawal. At this point stoping Abx and following further r Tachycardia/ Hypertension--likely related to drug withdrawal, treat underlyuing withdrwal with benzo, clonidine.. PRN Labetalol for high BPs, seen by cardiology Persistent tachycardia in 140s, likely multifactorial: In setting of sepsis and secondary to pain Will hold on echocardiogram and Cardiology consult Monitor on telemetry cutlure are negative Hypomagnesemia Magnesium 1.5 at time of presentation Received Mag 2g in the ED and now normal Elevated troponins, ruled out CO Initial troponin 420.7 with repeat flat at 508.6 EKG nonischemic, pt denies chest pain/pressure Likely type 2 in the setting of increased demand Monitor on telemetry MOISES, resolved Initial creatinine 1.26 (previous 0.85), normalized 0.97 after IVF Follow creatinine Hepatitis-C Untreated, diagnosed a few years ago Pt with transaminitis Denies hx of alcohol use Follow up outpatient for treatment Opioid use disorder Recent relapsed 2 weeks ago after sometime being clean Takes heroin intranasally, denies hx of IVDU Continue methadone once verified and pt able to tolerate p.o. Addiction medicine consult Full CodeAttending:?Dr. Corbin DVT Prophylaxis: Pneumatic compression due to possible surgical procedure Quality Stroke Does the patient have a stroke diagnosis?: No VTE Prior VTE?: No VTE Risk Level:: Medical - moderate - high VTE Device Contraindication: Treatment Not Indicated VTE Drug Contraindication: N/A - Med Ordered
[2025-01-29 13:17] LABS: Anion Gap 15 (12-20); Carbon Dioxide 22 mmol/L (22-29); Chloride 107 mmol/L (96-108); Magnesium 2.0 mg/dL (1.6-2.6); Potassium 3.7 mmol/L (3.3-5.1); Sodium 140 mmol/L (135-145)
--- NOTE | 2025-01-29 14:52 | MHC.CM.PN ---
Per rounds, pt. improving, not yet ready to DC, still showing W/D Sx.
[2025-01-29 15:44] VITALS: BP 180/82; PULSE 93; RESP 17; TEMP 36.6; O2SAT 94
--- NOTE | 2025-01-29 16:03 | P.PNGI_ITS ---
Subjective Subjective Date of Service: 01/29/25 Interval History: still with abd pain but way better than 2 days ago. Critical Care Time (minutes): 0 Physical Exam 2 Vital Signs: Vital Signs: Last Vital Signs Temp 97.8 F 01/29/25 15:44 Pulse 93 01/29/25 15:44 Resp 17 01/29/25 15:44 BP 180/82 H 01/29/25 15:44 Pulse Ox 94 01/29/25 15:44 O2 Del Method Room Air 01/29/25 15:44 BMI result Body Mass Index 45.6 GI: Other: ice pack on abdomen soft, less tender no rebound Objective Data Labs 01/28/25 06:38 01/29/25 06:06 Labs: Laboratory Results - last 24 hr 01/28/25 01/28/25 01/29/25 16:11 20:35 06:06 Sodium 140 Potassium 3.7 Chloride 107 Carbon Dioxide 22 Anion Gap 15 Creatinine 0.63 Estim Creat Clear Calc 173.7 Estimated GFR > 60 Magnesium 2.0 Random Vancomycin 7.4 L T.pallidum Ab (EIA) Nonreactive Hep Bs Antigen Negative Hep Bs Antibody REACTIVE Hepatitis C Ab (EIA) Reactive H HIV 1&2 Ab/P24 Ag 4thGn Nonreactive Imaging HIDA reviewed: My impression: no obstruction Microbiology Microbiology Results: Microbiology 01/27/25 05:25 Blood - Venous Blood Culture - Preliminary No growth after 48 hours. 01/27/25 05:14 Blood - Venous Blood Culture - Preliminary No growth after 48 hours. Procedures Date of Service Date of Service: 01/29/25 Progress Note: A&P Assessment and plan (1) Abdominal pain with vomiting: Status: Acute Assessment and Plan: I reviewed the HIDA results with Kimberly continue supportive care, diet as tolerated. lft elevations likely due to chronic HCV This can be treated electively as an outpatient. Time Spent With Patient Time: Total time managing care of this patient today ____ minutes. Quality Stroke Does the patient have a stroke diagnosis?: No VTE Prior VTE?: No VTE Risk Level:: Medical - moderate - high VTE Device Contraindication: Treatment Not Indicated VTE Drug Contraindication: N/A - Med Ordered
[2025-01-29 20:00] VITALS: BP 165/98; PULSE 94; RESP 20; TEMP 37.1; O2SAT 95
[2025-01-29] MEDS: diazePAM 10 MG/2 ML CARTRIDGE 2.5 MG IVPUSH (23:54)
[2025-01-30] VITALS (9 sets, daily range): BP systolic 138–184; BP diastolic 89–118; PULSE 82–136; RESP 17–20; TEMP 36.3–37.2; O2SAT 93–97
[2025-01-30 07:03] LABS: Creatinine Clr Calc Pharmacy 165.8; Estimated Glomerular Filt Rate > 60
[2025-01-30] MEDS: 0.9 % Sodium Chloride Flush 3 ML SYRINGE IVFLUSH (08:36)
[2025-01-30 08:41] LABS: ~Hepatitis A Antibody IgG 1.70 S/CO (0.00-0.99)
[2025-01-30] MEDS: methADONE HCl 20 MG/2 ML ORAL.CONC 65 MG PO (09:04)
--- NOTE | 2025-01-30 10:49 | PM.DS ---
DS: Providers Provider Date of Service: 01/30/25 Date of admission: 01/27/25 10:25 Date of discharge: 01/30/25 Primary care physician: None Physician Consults: 01/27/25 12:28 Consult to Infectious Diseases Routine Consulting Provider: [facility] Reason for consultation: Severe sepsis, unclear source 01/27/25 12:53 Addiction Medicine Provider Routine Consulting Provider: Addiction Covering Reason for consultation: OUD, recent relaspse 01/27/25 13:40 Consult to General Surgery Routine Consulting Provider: [facility] General Surgeons Reason for consultation: ?Ischemic bowel 01/27/25 14:25 Consult to Gastroenterology Routine Consulting Provider: Fidel Hamilton Reason for consultation: ?Carcinoid tumor; pt with severe abd pain & flushing 01/27/25 23:54 Consult to Wound Care Routine Reason for consultation: MASD groin and breast folds 01/28/25 00:06 Consult to Cardiology Routine Consulting Provider: [facility] Reason for consultation: eleavted troponin Has provider been notified: No DS: Diagnosis Discharge Diagnosis (1) Abdominal pain with vomiting: Status: Acute DS: Summary Hospital Course Hospital Course: admission hpi Attending physician on admission: Cj Corbin Chief Complaint: Abdominal pain Pt is a 40-year-old female with a PMH significant for opiate use disorder, hepatitis-C untreated, anxiety, and depression?who presents to the ED with?shaking chills, nausea, vomiting, and upper abdominal pain x3 days. Pt reports symptoms began Monday and has had persistent nausea with multiple episodes of vomiting since then. Has not been able to keep down either food or fluids. Abdominal pain has been persistent and diffuse, but mostly located in the upper abdomen. Also complains of intermittent racing heart, but no chest pain or pressure. Denies diarrhea. Pt reports has been clean for some time, though recently relapsed 2 weeks ago. Reports takes heroin intranasally; denies any hx of IVDU. Also denies hx of alcohol use. Denies headache, neck pain, back pain. No acute vision changes. Denies changes to bowel or bladder habits. In the ED pt was febrile up to 101.9, persistently tachycardic up to 164, tachypneic up to 28, and hypertensive as high as 159/78, satting at 97% RA. Labs were significant for leukocytosis of 21.9, bicarb 15 with repeat 18, creatinine 1.26 with repeat 0.97, glucose 237, initial lactic acid 12.0 with repeats 5.9 and 3.0, magnesium 1.5, AST 119, ALT 161, initial troponin 420.7 with repeat flat at 508.6, CRP 1.03. Stable H&H. TSH WNL. UA negative for UTI. Tested negative for flu, COVID, RSV. CXR showed no acute cardiopulmonary abnormality. CTA of chest negative for PE, aneurysm or dissection, or acute airspace disease. Did show small hiatal hernia. CT of abdomen/pelvis redemonstrated small hiatal hernia, small fat containing umbilical hernia, and probable mild hepatic steatosis. EKG demonstrated sinus tachycardia of 160 without evidence of significant ischemic changes. Pt was treated in the ED with acetaminophen, morphine, droperidol, sepsis bolus fluids, hydromorphone, ketorolac, diazepam, vancomycin, and Zosyn. Pt is admitted to the hospital for treatment and further evaluation of SIRS criteria with severe features of unclear etiology. hospital course: Pt is a 40-year-old female with a PMH significant for opiate use disorder, hepatitis-C untreated, anxiety, and depression?who presents to the ED with?shaking chills, nausea, fever, vomiting, and upper abdominal pain x3 days, tachycardia. WBC was high at 21.9K, blood culture sent, UA was negative, CXR negative, CT chest no acute pathology, CT of abdomen and pelvis no acute finding. Her face was flushed red. Viral studies were negative. She was started on blood spec antibiotics and infectious disease, surgery and GI consultation obtained. To date cultures have been negative, and upon evaluation by infectious disease, antibiotics were discontinued. Due to persistent abdominal pain, she was seen by surgery and HIDA scan which was negative, gradually her symptoms have resolved, she no longer has nausea or vomitting and tachycardia resolved. Her Presentation is attributed to drug withdrawal, Utox was positive for fentanyl, opoid and methadone. She has had similar issues in the past with negative infectious work. She has been followed by addiction med team and has been given resources to help stay away from opioid and other other illicit substances. ng further. She was started on blood spec antibiotics due to concern for possible sepsis Tachycardia/ Hypertension--likely related to drug withdrawal, treat underlyuing withdrwal with benzo, clonidine.. PRN Labetalol for high BPs, seen by cardiology and had echo that was unremarkable, and no further testing at this timne. Hypomagnesemia, replaced and resolved. Elevated troponins, ruled out HI Initial troponin 420.7 with repeat flat at 508.6 EKG nonischemic, pt denies chest pain/pressure Likely type 2 in the setting of increased demand from tachycardia, echo and cardio eval as above Monitor on telemetry MOISES, resolved Initial creatinine 1.26 (previous 0.85), normalized 0.97 after IVF Follow creatinine Hepatitis-C Untreated, diagnosed a few years ago Pt with transaminitis Denies hx of alcohol use Follow up outpatient for treatment Opioid use disorder Recent relapsed 2 weeks ago after sometime being clean Takes heroin intranasally, denies hx of IVDU Continue methadone once verified and pt able to tolerate p.o. Time Attestation Discharge Coordination Time (in mins): 40 Quality: Safe Use of Opioids Does Pt have an Active Cancer Diagnosis on the Problem List?: No Quality: Stroke Does the patient have a stroke diagnosis?: No Physical Exam Vital Signs: Vital Signs: Last Vital Signs Temp 97.3 F 01/30/25 07:57 Pulse 93 01/30/25 07:57 Resp 17 01/30/25 07:57 BP 178/90 H 01/30/25 07:57 Pulse Ox 96 01/30/25 07:57 O2 Del Method Room Air 01/30/25 07:57 BMI result Body Mass Index 45.6 Const: Other: General: AO X 3, no acute distress Resp: CTA bilateral CVS: S1,S2,RRR GI: +BS, NT, no distention Skin: No rash Neuro: motor grossly intact Psych: appropriate affect DS: Data Data Completed and Pending Labs on day of discharge: Laboratory Results - last 24 hr 01/28/25 01/29/25 01/29/25 20:35 06:06 15:47 Hold Purple Top Sodium 140 Potassium 3.7 Chloride 107 Carbon Dioxide 22 Anion Gap 15 Creatinine Estim Creat Clear Calc Estimated GFR Magnesium 2.0 Random Vancomycin 2.3 L Hepatitis A IgG Ab REACTIVE 01/30/25 06:19 Hold Purple Top SEE NOTE Sodium Potassium Chloride Carbon Dioxide Anion Gap Creatinine 0.66 Estim Creat Clear Calc 165.8 Estimated GFR > 60 Magnesium Random Vancomycin Hepatitis A IgG Ab Preliminary micro results at discharge 01/27/25 05:25 Blood Culture - Preliminary Blood - Venous No growth after 48 hours. 01/27/25 05:14 Blood Culture - Preliminary Blood - Venous No growth after 48 hours. Discharge Plan Discharge Anticipated Discharge Date/Time: 01/30/25 10:43 Patient Disposition: Home, Self-Care Discharge Diagnosis: Drug withdrawal Referrals: Physician,None [Primary Care Provider, Medical] - 1 Week Discharge Medications: New amlodipine 5 mg Tablet 5 mg PO DAILY Qty: 90 0RF Protocol: Hold for SBP< HOLD for SBP < : 90 Continued clonidine HCl 0.1 mg tablet 0.1 mg PO TID PRN (Reason: anxiety) methadone 10 mg/mL Concentrate 85 mg PO DAILY cyclobenzaprine 10 mg tablet 10 mg PO Q8H PRN (Reason: Muscle Spasm) Discontinued ibuprofen 200 mg Tablet 400 mg PO Q6H PRN (Reason: Fever Or Pain) Discharge Orders: Discharge Order (Routine); Ordered 01/30/25 Ordered By: Genaro Cramer Diet: Advance to usual diet Activity on Discharge: As tolerated Stand Alone Forms: Patient Portal Discharge page Print Language: Uzbek Care Plan Goals: recovery from drug withdrawal, abdominal pain, nausea, vomiting Health Concerns: substance use disorder opioid dependence Plan of Treatment: take methadone as prescribed avoid ilicity substances, take Norvasc for blood pressure follow up with your Doctor in a week, call for appointment fllow up with addiction med clinic Assessment: see above Discharge Date/Time: 01/30/25 19:13
--- NOTE | 2025-01-30 10:57 | MHC.CM.PN ---
Pt. has been medically cleared to [place], She will go home [place] [facility] [place], plan is self care.
--- NOTE | 2025-01-30 13:09 | P.PNADD_ITS ---
Subjective Subjective Date of Service: 01/30/25 Reason For Visit: SIRS, elevated trops Interim History: Patient seen in follow up Reports feeling better , but still nauseous. She states that she slept last evening for the first time in several days, but woke up with vomit on her. Discussed the possibility that opiate withdrawal is now likely worsening her GI sx, as her last dose of methadone was Monday, 01/24 (6 days ago) Patient agreeable. Overall appearance has improved significantly from admission--no longer tremulous or extremely diaphoretic. Pupils are enlarged and she reports body aches. Medical workup without findings for her sx. Today, methadone 65mg administered--patient reported to RN vomiting shortly after. RN reports ememsis bag contained small amount of clear liquid. Unlikely it was methadone. Seen by manager filter afterwards and patient reporting she felt ok , but unsure if it was because of methadone or pain meds. In any event, RN reports patient did not appear worse than when seen earlier in the AM and was planning for discharge. Review of Systems Constitutional: Reports as per HPI Mental Status Exam Mental Status Exam Patient Appearance: Appropriate Patient Orientation: Person, Place, Time and Situation Level of Consciousness: Awake, Appropriate and Alert Patient Behavior: Appropriate and Cooperative Affect Description: Calm Speech Pattern: Clear Thought Process: Intact Thought Content: positive for Intact Judgement: Good Diagnostics Vital Signs (24Hr): Vital Signs - 24 hr 01/29/25 15:44 01/29/25 20:00 01/30/25 00:00 Temperature 97.8 F 98.7 F 98.3 F Pulse Rate 93 94 83 Respiratory Rate 17 20 20 Blood Pressure 180/82 H 165/98 H 184/98 H Pulse Oximetry 94 95 93 Oxygen Delivery Method Room Air Room Air Room Air 01/30/25 03:15 01/30/25 07:57 01/30/25 11:48 Temperature 98.9 F 97.3 F 97.8 F Pulse Rate 95 93 82 Respiratory Rate 20 17 17 Blood Pressure 179/101 H 178/90 H 182/118 H Pulse Oximetry 97 96 96 Oxygen Delivery Method Room Air Room Air Room Air BMI result Body Mass Index 45.6 Labs 01/28/25 06:38 01/30/25 06:19 Labs: Laboratory Results - last 48 hr 01/28/25 01/28/25 01/28/25 06:38 16:11 20:35 Hold Purple Top Sodium Potassium Chloride Carbon Dioxide Anion Gap Creatinine Estim Creat Clear Calc Estimated GFR Magnesium 1.9 Random Vancomycin 7.4 L T.pallidum Ab (EIA) Nonreactive Hepatitis A IgG Ab REACTIVE Hep Bs Antigen Negative Hep Bs Antibody REACTIVE Hepatitis C Ab (EIA) Reactive H HIV 1&2 Ab/P24 Ag 4thGn Nonreactive 01/29/25 01/29/25 01/30/25 06:06 15:47 06:19 Hold Purple Top SEE NOTE Sodium 140 Potassium 3.7 Chloride 107 Carbon Dioxide 22 Anion Gap 15 Creatinine 0.63 0.66 Estim Creat Clear Calc 173.7 165.8 Estimated GFR > 60 > 60 Magnesium 2.0 Random Vancomycin 2.3 L T.pallidum Ab (EIA) Hepatitis A IgG Ab Hep Bs Antigen Hep Bs Antibody Hepatitis C Ab (EIA) HIV 1&2 Ab/P24 Ag 4thGn Imaging Radiology Impressions: ITS Impressions Abdomen/Pelvis CT 01/27/25 05:39 IMPRESSION: Hiatal hernia, small size. Small fat-containing umbilical hernia. Probable hepatic steatosis, mild. Fleischner guidelines were followed. Electronically signed by: Homero Garner MD 01/27/2025 08:12 AM EDT RP Chest CTA 01/27/25 05:39 IMPRESSION: No acute pulmonary artery emboli. No aneurysm or dissection. No acute airspace disease. Small hiatal hernia. Multilevel spondylosis. Fleischner guidelines were followed. Electronically signed by: Homero Garner MD 01/27/2025 08:04 AM EDT RP Chest X-Ray 01/27/25 06:30 IMPRESSION: No acute cardiopulmonary abnormality. Electronically signed by: Erik Flannery MD 01/27/2025 07:59 AM EDT RP Hepatobiliary Scan Nuclear Medicine 01/28/25 10:57 IMPRESSION: Within normal limits. Electronically signed by: Maninder Gaitan MD 01/28/2025 02:38 PM EDT RP Medications Medications Current Medications Acetaminophen (Acetaminophen 325 Mg Tablet) 650 mg PO Q6H PRN PRN Reason: Pain, Mild 1-3,fever,headache Amlodipine Besylate (Amlodipine Besylate 5 Mg Tablet) 5 mg PO DAILY [facility]; Protocol Last Admin: 01/30/25 11:24 Dose: 5 mg Calcium Carbonate (Calcium Carbonate 750 Mg Tab.Chew) 750 mg PO Q4H PRN PRN Reason: Heartburn Clonidine HCl (Clonidine Hcl 0.1 Mg Tablet) 0.1 mg PO TID PRN; Protocol PRN Reason: Anxiety Last Admin: 01/29/25 20:21 Dose: 0.1 mg Cyclobenzaprine HCl (Cyclobenzaprine Hcl 10 Mg Tablet) 10 mg PO Q8H PRN PRN Reason: Muscle Spasm Last Admin: 01/28/25 14:30 Dose: 10 mg Dicyclomine HCl (Dicyclomine Hcl 10 Mg Capsule) 10 mg PO TIDAC PRN PRN Reason: abdominal pain Last Admin: 01/28/25 17:58 Dose: 10 mg Hydromorphone HCl (Hydromorphone Hcl 1 Mg/Ml Syringe) 1.25 mg IVPUSH Q3H PRN; Protocol PRN Reason: Pain, Severe (Pain Scale 7-10) Last Admin: 01/30/25 09:41 Dose: 1.25 mg Lorazepam (Lorazepam 1 Mg Tablet) 1 mg PO Q6H PRN PRN Reason: anxiety/restlessness Last Admin: 01/30/25 06:34 Dose: 1 mg Magnesium Hydroxide (Milk Of Magnesia 30 Ml Oral.Susp) 30 ml PO DAILY PRN PRN Reason: Constipation Melatonin (Melatonin 3 Mg Tablet) 6 mg PO BEDTIME PRN PRN Reason: Insomnia Last Admin: 01/29/25 21:29 Dose: 6 mg Nystatin (Nystatin Powder 15 Gm Bottle) 1 appl TOPICAL BID [facility]; Protocol Last Admin: 01/30/25 08:35 Dose: 1 appl Ondansetron HCl (Ondansetron Hcl 4 Mg/2 Ml Vial) 4 mg IVPUSH Q8H PRN PRN Reason: Nausea and Vomiting Last Admin: 01/30/25 08:35 Dose: 4 mg Pantoprazole Sodium (Pantoprazole Sodium 40 Mg/10 Ml Vial) 40 mg IVPUSH BID@0630,1630 [facility] Last Admin: 01/30/25 06:33 Dose: 40 mg Sodium Chloride (0.9 % Sodium Chloride Flush 3 Ml Syringe) [address] [facility] Last Admin: 01/30/25 08:36 Dose: 3 ml Allergies Allergies Allergy/AdvReac Type Severity Reaction Status Date / Time No Known Allergies (No Known Allergy Verified 01/27/25 05:04 Allergies*) Assessment & Plan Assessment & Plan (1) Opioid use disorder: Status: Acute Code(s): F11.90 - Opioid use, unspecified, uncomplicated Assessment and Plan: * plan was to [facility] patient to [facility] this AM so she could get a take home dose for tomorrow (01/31), however patient states she did not have a ride home from the [facility], so prefers to go home and [place] [facility] [place] * clinical information to be sent to [facility] * erin kong Total time managing care of this patient today __25__ minutes.
--- NOTE | 2025-01-30 15:16 | P.PNIM_ITS ---
Subjective Subjective Date of Service: 02/02/25 Interval History: Patient is tolerating diet, tachycardia resolved, she has been complaining of dizzines and reportedly felt after she asked for the camera to be turned off to dress, minutes later she was found on floor, claiming she had fallen, she sustained no injury. Her gait is stable , she has no pain in any joint. Her blood is persistently high. Physical Exam 2 Vital Signs: Vital Signs: Last Vital Signs Temp 98.4 F 01/30/25 13:22 Pulse 93 01/30/25 13:22 Resp 18 01/30/25 13:22 BP 174/100 H 01/30/25 13:22 Pulse Ox 97 01/30/25 13:22 O2 Del Method Room Air 01/30/25 13:22 BMI result Body Mass Index 45.6 Const: Other: General: AO X 3, seemed anxious,face red from retching Resp: CTA bilateral CVS: S1,S2,RRR, tachy GI: +BS, NT, no distention, non-specific tenderness Skin: No rash Neuro: motor grossly intact Psych: appropriate affect Objective Data Active Medications Acetaminophen (Acetaminophen 325 Mg Tablet) 650 mg PO Q6H PRN PRN Reason: Pain, Mild 1-3,fever,headache Amlodipine Besylate (Amlodipine Besylate 5 Mg Tablet) 5 mg PO DAILY [facility]; Protocol Last Admin: 01/30/25 11:24 Dose: 5 mg Documented By: RUBÉN Calcium Carbonate (Calcium Carbonate 750 Mg Tab.Chew) 750 mg PO Q4H PRN PRN Reason: Heartburn Clonidine HCl (Clonidine Hcl 0.1 Mg Tablet) 0.1 mg PO TID PRN; Protocol PRN Reason: Anxiety Last Admin: 01/29/25 20:21 Dose: 0.1 mg Documented By: DIOMEDES Dicyclomine HCl (Dicyclomine Hcl 10 Mg Capsule) 10 mg PO TIDAC PRN PRN Reason: abdominal pain Last Admin: 01/28/25 17:58 Dose: 10 mg Documented By: ADY Labetalol HCl (Labetalol Hcl 100 Mg Tablet) 100 mg PO ONCE ONE; Protocol Stop: 01/30/25 15:15 Magnesium Hydroxide (Milk Of Magnesia 30 Ml Oral.Susp) 30 ml PO DAILY PRN PRN Reason: Constipation Melatonin (Melatonin 3 Mg Tablet) 6 mg PO BEDTIME PRN PRN Reason: Insomnia Last Admin: 01/29/25 21:29 Dose: 6 mg Documented By: DIOMEDES Nystatin (Nystatin Powder 15 Gm Bottle) 1 appl TOPICAL BID [facility]; Protocol Last Admin: 01/30/25 08:35 Dose: 1 appl Documented By: RUBÉN Ondansetron HCl (Ondansetron Hcl 4 Mg/2 Ml Vial) 4 mg IVPUSH Q8H PRN PRN Reason: Nausea and Vomiting Last Admin: 01/30/25 08:35 Dose: 4 mg Documented By: RUBÉN Sodium Chloride (0.9 % Sodium Chloride Flush 3 Ml Syringe) 3 ml IVFLUSH QSHIFT [facility] Last Admin: 01/30/25 08:36 Dose: 3 ml Documented By: RUBÉN Labs 01/28/25 06:38 01/30/25 06:19 Labs: Laboratory Results - last 24 hr 01/28/25 01/29/25 01/30/25 20:35 15:47 06:19 Hold Purple Top SEE NOTE Estim Creat Clear Calc 165.8 Estimated GFR > 60 Random Vancomycin 2.3 L Hepatitis A IgG Ab REACTIVE Microbiology Microbiology Results: Microbiology 01/27/25 05:25 Blood Culture - Preliminary Blood - Venous No growth after 48 hours. 01/27/25 05:14 Blood Culture - Preliminary Blood - Venous No growth after 48 hours. Assessment and Plan (1) Nausea: Status: Acute (2) Abdominal pain with vomiting: Status: Acute (3) Drug withdrawal: Status: Acute Plan Pt is a 40-year-old female with a PMH significant for opiate use disorder, hepatitis-C untreated, anxiety, and depression?who presents to the ED with?shaking chills, nausea, vomiting, and upper abdominal pain x3 days. Pt is admitted to the hospital for treatment and further evaluation of SIRS criteria with severe features of unclear etiology. Initially thought to have Sepsis, however no evidence of infectious despite fevers and essentially negative infectious work up withCXR negative, chest CTA negative, CT of abd/pelvis negative, RSV/COVID/flu negative,HIDA, UA negative. Her symptoms are likely from drug withdrawal. At this point stoping Abx and following further r Tachycardia/ Hypertension--likely related to drug withdrawal, treat underlyuing withdrwal with benzo, clonidine.. PRN Labetalol for high BPs, seen by cardiology Persistent tachycardia in 140s, likely multifactorial: In setting of sepsis and secondary to pain Will hold on echocardiogram and Cardiology consult Monitor on telemetry cutlure are negative Hypomagnesemia Magnesium 1.5 at time of presentation Received Mag 2g in the ED and now normal Elevated troponins, ruled out NE Initial troponin 420.7 with repeat flat at 508.6 EKG nonischemic, pt denies chest pain/pressure Likely type 2 in the setting of increased demand Monitor on telemetry MOISES, resolved Initial creatinine 1.26 (previous 0.85), normalized 0.97 after IVF Follow creatinine Hepatitis-C Untreated, diagnosed a few years ago Pt with transaminitis Denies hx of alcohol use Follow up outpatient for treatment Opioid use disorder Recent relapsed 2 weeks ago after sometime being clean Takes heroin intranasally, denies hx of IVDU Continue methadone once verified and pt able to tolerate p.o. Addiction medicine consult Full CodeAttending:?Dr. Corbin DVT Prophylaxis: Pneumatic compression due to possible surgical procedure Quality Stroke Does the patient have a stroke diagnosis?: No VTE Prior VTE?: No VTE Risk Level:: Medical - moderate - high VTE Device Contraindication: Treatment Not Indicated VTE Drug Contraindication: N/A - Med Ordered
--- NOTE | 2025-01-30 15:24 | PC.NURSE ---
Patient throughout the morning shift refusing bed/chair alarm, patient was walking to the bathroom with staff observing and was steady on her feet. At 1300 patient refused video camera and stated I am leaving today at 1345 so I do not want the camera on anymore. RN went to tell video monitor staff for privacy, and on the way back to tell the patient the camera was off at 1305 this RN witness the patient laying on the floor. the patient stated while smiling, i felt dizzy and my legs gave out, i lowered myself slowly to the floor and sat down then laid down. patient denies head strike. this RN assess the patient for injuries and vitals were taken Temp. 98.4, HR 93, 97 RA O2, RR 18, BP 174/100. Yellow socks and wrist band were on patient prior to fall. This RN made provider aware, provider Dr. Cramer came to bedside STAT to assess patient, and was okay with sitting patient back into the recliner, patient denied dizziness and walked steady on her feet to the recliner. Orthostatic vitals were taken and were negative per provider. PT eval was ordered, see PT note. Video camera was placed back and bed alarm activated. patient kept on observation per provider. This RN education patient on fall risk precautions. Call villafana within reach.
[2025-01-30 22:53] LABS: A. Phagocytphilium DNA,RT-PCR NOT DETECTED (NOT DETECTED); Babesia Microti DNA, RT-PCR NOT DETECTED (NOT DETECTED); Borrelia Miyamotoi,DNA RT-PCR NOT DETECTED (NOT DETECTED); E.Chaffeensis DNA RT-PCR NOT DETECTED (NOT DETECTED); Lyme(Borrelia ssp)DNA RT-PCR NOT DETECTED (NOT DETECTED)
== END 2025-01-30 19:13 | disposition home or self-care (01) | DRG 872 ==
LOC: HO.ED 05:54 → HO.EDOVER 10:55 → HO.IMC 21:03
PROVIDERS: Internal Medicine; Physician Assistant; Admitting Provider Student in an Organized Health Care Education/Training Program; Emergency Provider Emergency Medicine; Visit Provider Internal Medicine
DX: A41.9 Sepsis, unspecified organism (principal); N17.9 Acute kidney failure, unspecified; F11.23 Opioid dependence with withdrawal; B18.2 Chronic viral hepatitis C; E83.42 Hypomagnesemia; R65.20 Severe sepsis without septic shock; Z20.822 Contact with and (suspected) exposure to COVID-19; Z79.899 Other long term (current) drug therapy
CPT/HCPCS: 0241U; 36415; 71045; 71275; 74174; 74177; 78227; 80048; 80051; 80053; 80202; 80307; 81001; 82248; 82550; 82565; 82803; 82947; 83605; 83690; 83735; 84443; 84484; 84702; 85025; 85027; 85610; 86140; 86706; 86708; 86780; 86803; 87040; 87340; 87389; 87468; 87469; 87478; 87484; 87633; 87798; 93005; 93306; 97161; 99285; A9537; J0131; J1171; J1790; J1885; J1920; J2270; J2405; J2470; J2543; J2805; J3360; J3370; J3475; J7120; Q9957; Q9967; S9485

== ENCOUNTER → 2025-01-27 05:08 | Outpatient (BNV) | payer OTHER, SELFPAY | PROVIDERS: Admitting Provider Student in an Organized Health Care Education/Training Program; Emergency Provider Emergency Medicine; Visit Provider Internal Medicine Cardiovascular Disease | DX: R00.0 Tachycardia, unspecified (principal) | CPT/HCPCS: 93010 ==

== ENCOUNTER → 2025-01-27 06:00 | Outpatient (BNV) | payer OTHER, SELFPAY | PROVIDERS: Emergency Provider Emergency Medicine; Visit Provider Radiology Diagnostic Radiology | DX: K44.9 Diaphragmatic hernia without obstruction or gangrene (principal); K42.9 Umbilical hernia without obstruction or gangrene; M47.819 Spondylosis without myelopathy or radiculopathy, site unspecified; R52 Pain, unspecified; R50.9 Fever, unspecified | CPT/HCPCS: 71045; 71275; 74177 ==

== ENCOUNTER 2025-01-27 10:25 | Outpatient (BNV) | payer OTHER, SELFPAY | END 2025-01-28 | PROVIDERS: Admitting Provider Student in an Organized Health Care Education/Training Program; Emergency Provider Emergency Medicine; Visit Provider Radiology Diagnostic Radiology | DX: K76.0 Fatty (change of) liver, not elsewhere classified (principal); R10.9 Unspecified abdominal pain; R11.2 Nausea with vomiting, unspecified; K21.9 Gastro-esophageal reflux disease without esophagitis; K82.8 Other specified diseases of gallbladder | CPT/HCPCS: 74174; 78227 ==

== ENCOUNTER 2025-01-27 10:25 | Outpatient (BNV) | payer OTHER, SELFPAY | END 2025-01-28 00:08 | PROVIDERS: Admitting Provider Student in an Organized Health Care Education/Training Program; Emergency Provider Emergency Medicine; Visit Provider Internal Medicine Cardiovascular Disease | DX: R94.31 Abnormal electrocardiogram [ECG] [EKG] (principal) | CPT/HCPCS: 93010; 93306 ==

== ENCOUNTER → 2025-01-27 10:25 | Outpatient (BNV) | payer OTHER, SELFPAY | PROVIDERS: Admitting Provider Student in an Organized Health Care Education/Training Program; Emergency Provider Emergency Medicine; Visit Provider Physician Assistant | DX: R11.0 Nausea (principal); R10.9 Unspecified abdominal pain; R11.10 Vomiting, unspecified; F19.939 Other psychoactive substance use, unspecified with withdrawal, unspecified | CPT/HCPCS: 99223; 99232; 99239; 99499 ==

== ENCOUNTER → 2025-01-27 10:25 | Outpatient (BNV) | payer OTHER, SELFPAY | PROVIDERS: Admitting Provider Student in an Organized Health Care Education/Training Program; Emergency Provider Emergency Medicine; Visit Provider Physician Assistant Surgical | DX: R10.9 Unspecified abdominal pain (principal); R11.10 Vomiting, unspecified | CPT/HCPCS: 99222; 99232 ==

== ENCOUNTER → 2025-01-27 10:25 | Outpatient (BNV) | payer OTHER, SELFPAY | PROVIDERS: Admitting Provider Student in an Organized Health Care Education/Training Program; Emergency Provider Emergency Medicine; Visit Provider Internal Medicine | DX: D72.829 Elevated white blood cell count, unspecified (principal); F11.90 Opioid use, unspecified, uncomplicated | CPT/HCPCS: 99232 ==

== ENCOUNTER → 2025-01-27 10:25 | Outpatient (BNV) | payer OTHER, SELFPAY | PROVIDERS: Admitting Provider Student in an Organized Health Care Education/Training Program; Emergency Provider Emergency Medicine; Visit Provider Nurse Practitioner Psychiatric/Mental Health | DX: F11.90 Opioid use, unspecified, uncomplicated (principal) | CPT/HCPCS: 99222 ==

== ENCOUNTER → 2025-01-27 10:25 | Outpatient (BNV) | payer OTHER, SELFPAY | PROVIDERS: Admitting Provider Student in an Organized Health Care Education/Training Program; Emergency Provider Emergency Medicine; Visit Provider Internal Medicine Cardiovascular Disease | DX: R65.10 Systemic inflammatory response syndrome (SIRS) of non-infectious origin without acute organ dysfunction (principal); R79.89 Other specified abnormal findings of blood chemistry; R00.0 Tachycardia, unspecified | CPT/HCPCS: 99222 ==